=== PATIENT | male | born 1955 | race Caucasian/White ===

== ENCOUNTER 2016-08-28 23:23 | Inpatient (IN) | payer BC, MEDICARE ==
[~2016-08-28] VITALS: Ht 172.7 cm; Wt 90.6 kg
[~2016-08-28 23:23] MED LIST: LEVO.125 PO; MORP60TA20 PO
[2016-08-28] MEDS ORDERED: methylPREDNISolone SOD SUCC 125 MG/2 ML VIAL ONE (23:32)
[2016-08-28 23:40] VITALS: O2SAT 98
[2016-08-28 23:44] VITALS: BP 125/60; PULSE 82; RESP 24; TEMP 97.9; O2SAT 93
[2016-08-28] MEDS: RESP: ALBUTEROL 2.5 MG/IPRATROPIUM 0.5 MG NEB (SCH) INH ×2 (23:45→23:46)
[2016-08-28] MEDS ORDERED: methylPREDNISolone SOD SUCC 125 MG/2 ML VIAL IVP ONE (23:45)
[2016-08-28] MEDS ORDERED: SODIUM CHLORIDE 0.9% FLUSH 5 ML FLUSH IVF PRN (23:45)
[2016-08-28 23:53] LABS: AUTOMATED NEUTROPHIL # 3.5 TH/MM3 (1.8-7.7); BASOPHIL % 0.7 % (0.0-2.0); EOSINOPHIL % 14.2 % (0.0-4.0); HEMATOCRIT 37.7 % (39.0-51.0); HEMO FLAGS DIFF FINAL; LYMPHOCYTE # 1.8 TH/MM3 (1.0-4.8); MEAN CELL VOLUME 86.8 FL (80.0-100.0); MEAN CORPUSCULAR HEMOGLOBIN 29.6 PG (27.0-34.0); MEAN CORPUSCULAR HGB CONC 34.1 % (32.0-36.0); MONO % 6.5 % (0.0-8.0); NEUT % 51.6 % (16.0-70.0); PLATELET COUNT 263 TH/MM3 (150-450); RED BLOOD COUNT 4.35 MIL/MM3 (4.50-5.90); WHITE BLOOD COUNT 6.8 TH/MM3 (4.0-11.0)
[2016-08-28] MEDS ORDERED: MORP60TA24 PO (23:53)
[2016-08-28] MEDS ORDERED: OXYC30TA PO (23:53)
[2016-08-28] MEDS ORDERED: LEVO150T7 PO (23:53)
[2016-08-28 23:56] VITALS: O2SAT 98
[2016-08-29] VITALS (9 sets, daily range): BP systolic 134–158; BP diastolic 80–98; PULSE 66–89; RESP 16–20; TEMP 97.2–98.4; O2SAT 95–98
[2016-08-29 00:05] LABS: PROTHROMBIN TIME - PATIENT 10.5 SEC (9.8-11.6)
--- NOTE | 2016-08-29 00:05 | RADRPT ---
EXAM DATE/TIME: 08/28/2016 23:37 [facility] COMPARISON: CHEST SINGLE AP, December 03, 2014, 8:55. INDICATIONS : Shortness of breath. MEDICAL HISTORY : Carcinoma, thyroid. SURGICAL HISTORY : CABG. Thyroidectomy. ENCOUNTER: Initial ACUITY: 1 day PAIN SCORE: 0/10 LOCATION: Bilateral chest FINDINGS: A single view of the chest demonstrates the lungs to be symmetrically aerated without evidence of mas s, infiltrate or effusion. The cardiomediastinal contours are unremarkable. Osseous structures are intact. CONCLUSION: 1. No focal consolidation or effusion. Postoperative median sternotomy. Tortuous aorta. Chris Martines MD on August 29, 2016 at 0:01 Board Certified Radiologist. This report was verified electronically.
[2016-08-29 00:21] LABS: ANION GAP 7 MEQ/L (5-15); BICARBONATE 31.1 MEQ/L (21.0-32.0); BLOOD UREA NITROGEN 17 MG/DL (7-18); CHLORIDE 102 MEQ/L (98-107); GLOMERULAR FILTRATION RATE 63 ML/MIN (>89); MAGNESIUM 2.3 MG/DL (1.5-2.5); POTASSIUM 4.1 MEQ/L (3.5-5.1); SODIUM (NA) 140 MEQ/L (136-145)
[2016-08-29 00:24] LABS: CREATINE KINASE 329 U/L (39-308)
[2016-08-29 00:36] LABS: CKMB 9.7 NG/ML (0.5-3.6)
[2016-08-29] MEDS ORDERED: LEVOTHYROXINE SODIUM 200 MCG TAB PO ONE (00:45)
--- NOTE | 2016-08-29 00:49 | PD ---
HPI Chief Complaint: Respiratory Distress Time Seen by Provider: 23:30 Travel History International Travel<30 days: No Contact w/Intl Traveler<30days: No Traveled to known affect area: No History of Present Illness HPI 61-year-old male came to the emergency room with history of shortness of breath and wheezing. Patient says it's been going on for past 1 month but it is progressively worsening. He got very short of breath today. When he came to the triage she could barely speak one word per breath. He was brought in emergently. His oxygen saturation was 96% on 6 L of FiO2. He was audibly wheezing. Patient says he was taking his inhalers but it wasn't working. Denied any chest pain. He says he supposed to take medications but he is noncompliant with them. [facility] Past Medical History Narrative Medical List of his past medical, surgical, social and family history was reviewed from the nursing note. Cancer: Yes (THYROID) Diminished Hearing: No Hepatitis: Yes (HEP-C) Hypertension: Yes Musculoskeletal: Yes Thyroid Disease: Yes (THROID WAS REMOVED DUE TO CANCER) Past Surgical History Coronary Artery Bypass Graft: Yes Endocrine Surgery: Yes (THYROIDECTOMY) Thoracic Surgery: Yes (open heart surgery "heart aneurysm") Other Surgery: Yes (THYROIDECTOMY) Social History Alcohol Use: Yes (weekly) Tobacco Use: No Substance Use: No Allergies-Medications (Allergen,Severity, Reaction): Coded Allergies: No Known Allergies (Verified , 08/28/16) Comments No known drug allergies. Reported Meds & Prescriptions Reported Meds & Active Scripts Active Reported Oxycodone (Oxycodone HCl) 30 Mg Tab 30 Mg PO Q6HR Morphine Sulfate CR (Morphine Sulfate) 60 Mg Tab 60 Mg PO Q12 Levothyroxine (Levothyroxine Sodium) 150 Mcg Tab 150 Mcg PO DAILY Narrative Medication List of his medications reviewed from the nursing note. Review of Systems Except as stated in HPI: all other systems reviewed are Neg Physical Exam Narrative GENERAL: Awake, alert, severe respiratory distress, audibly wheezing from a distance SKIN: Warm and dry. HEAD: Atraumatic. Normocephalic. EYES: Pupils equal and round. No scleral icterus. No injection or drainage. ENT: No nasal bleeding or discharge. Mucous membranes pink and moist. NECK: Trachea midline. No JVD. CARDIOVASCULAR: Regular rate and rhythm. No murmur appreciated. RESPIRATORY: Decreased air entry bilaterally expiratory wheeze, accessory muscles used. GASTROINTESTINAL: Abdomen soft, non-tender, nondistended. Hepatic and splenic margins not palpable. MUSCULOSKELETAL: No obvious deformities. No clubbing. No cyanosis. No edema. NEUROLOGICAL: Awake and alert. No obvious cranial nerve deficits. Motor grossly within normal limits. Normal speech. PSYCHIATRIC: Appropriate mood and affect; insight and judgment normal. Data Data Last Documented VS Orders Methylprednisolone So Succ Inj (Solumedr (08/28/16 23:32) Complete Blood Count With Diff (08/28/16 23:31) Basic Metabolic Panel (Bmp) (08/28/16 23:31) B-Type Natriuretic Peptide (08/28/16 23:31) Prothrombin Time / Inr (Pt) (08/28/16 23:31) Magnesium (Mg) (08/28/16 23:31) Ckmb (Isoenzyme) Profile (08/28/16 23:31) Troponin I (08/28/16 23:31) Iv Access Insert/Monitor (08/28/16 23:31) Electrocardiogram (08/28/16 23:31) Ecg Monitoring (08/28/16 23:31) Oximetry (08/28/16 23:31) Oxygen Administration (08/28/16 23:31) Chest, Single Ap (08/28/16 23:31) Sodium Chloride 0.9% Flush (Ns Flush) (08/28/16 23:45) Methylprednisolone So Succ Inj (Solumedr (08/28/16 23:45) Albuterol-Ipratropium Neb (Duoneb Neb) (08/28/16 23:45) Thyroid Stimulating Hormone (08/28/16 23:34) CKMB (08/28/16 23:40) CKMB% (08/28/16 23:40) Levothyroxine (Synthroid) (08/29/16 00:45) D-Dimer (08/29/16 00:49) Ct Pulmonary Angiogram (08/29/16 ) Iohexol 350 Inj (Omnipaque 350 Inj) (08/29/16 02:22) Radiology Film Requests (08/29/16 ) Consult Cardiothoracic Surgery (08/29/16 ) (Hub Use Only)Inp Phy Cons/Ref (08/29/16 ) Admit Order (Ed Use Only) (08/29/16 05:09) Labs Laboratory Tests Test 08/28/16 23:40 White Blood Count 6.8 TH/MM3 Red Blood Count 4.35 MIL/MM3 Hemoglobin 12.9 GM/DL Hematocrit 37.7 % Mean Corpuscular Volume 86.8 FL Mean Corpuscular Hemoglobin 29.6 PG Mean Corpuscular Hemoglobin 34.1 % Concent Red Cell Distribution Width 13.0 % Platelet Count 263 TH/MM3 Mean Platelet Volume 7.5 FL Neutrophils (%) (Auto) 51.6 % Lymphocytes (%) (Auto) 27.0 % Monocytes (%) (Auto) 6.5 % Eosinophils (%) (Auto) 14.2 % Basophils (%) (Auto) 0.7 % Neutrophils # (Auto) 3.5 TH/MM3 Lymphocytes # (Auto) 1.8 TH/MM3 Monocytes # (Auto) 0.4 TH/MM3 Eosinophils # (Auto) 1.0 TH/MM3 Basophils # (Auto) 0.0 TH/MM3 CBC Comment DIFF FINAL Differential Comment Prothrombin Time 10.5 SEC Prothromb Time International 1.0 RATIO Ratio D-Dimer Quantitative (PE/DVT) 1.39 MG/L FEU Sodium Level 140 MEQ/L Potassium Level 4.1 MEQ/L Chloride Level 102 MEQ/L Carbon Dioxide Level 31.1 MEQ/L Anion Gap 7 MEQ/L Blood Urea Nitrogen 17 MG/DL Creatinine 1.17 MG/DL Estimat Glomerular Filtration 63 ML/MIN Rate Random Glucose 91 MG/DL Calcium Level 8.6 MG/DL Magnesium Level 2.3 MG/DL Total Creatine Kinase 329 U/L Creatine Kinase MB 9.7 NG/ML Creatine Kinase MB % 2.9 % Troponin I LESS THAN 0.02 NG/ML B-Type Natriuretic Peptide 133 PG/ML Thyroid Stimulating Hormone 69.900 uIU/ML 3rd Gen [facility] Medical Decision Making Medical Screen Exam Complete: Yes Emergency Medical Condition: Yes Medical Record Reviewed: Yes Interpretation(s) Twelve-lead EKG was reviewed by me. Normal sinus rhythm, normal axis, right bundle branch block, nonspecific ST-T wave changes. Heart rate of 85 bpm. Differential Diagnosis COPD exacerbation, PE, pneumonia, congestive heart failure Narrative Course 12:48 AM the test results are back. Given the fact that he told me his thyroid was surgically removed and he is medically noncompliant I ordered a TSH in addition which is extremely high. I've given him 200 g of Synthroid by mouth. Patient initially received 3 duo nebs and IV Solu-Medrol. I just reassessed him and he is still wheezing although the intensity has lessened. I'll order 2 more albuterol nebulizers. Patient had history of PE in 1994. There is a possibility of PE. I will add a d-dimer to the blood work since he has no other risk factors for developing PE including long distance travel or recent surgery or procedures. 1:42 AM d-dimer is back in its elevated. I ordered a pulmonary angiogram. Awaiting for the CT to be done and resulted. 3:[address] pulmonary angiogram was resulted as aortic dissection proximal from subclavian artery all the way down to the renal arteries bifurcation. Spoke with the thoracic surgeon environmental safety specialist Dr. Campso and he wanted the patient to be transferred to [facility] in [place] since he has had cardiac thoracic surgery done there in the past. Attempting to call the transfer center at [facility] in [place]. Patient's latest blood pressure is 134/80 and heart rate of 84. He seems to be comfortable and resting currently. 4:48 AM I had discussed the case with Dr. Tabares who is the cardiothoracic surgeon from [facility] in [place]. He said that this patient has a known type I aortic dissection. Given the fact that he has no chest pain and no symptoms of dissection there is no surgical emergency for this. He should be treated medically as a COPD exacerbation. If the patient had come to their institution no surgery would have been done and patient will be treated medically as well. Hence the need for transfer was not necessary. He was going to speak with the thoracic surgeon here Dr. Campos. I will consult Dr. Campos here for the same. Awaiting for the [facility] hospitalist to call back for admission. Patient continues to be stable and chest pain-free. Critical Care Narrative Aggregate critical care time was 45 minutes. Time to perform other separately billable procedures was not included in the critical care time. My time did not include minutes spent treating any other patients simultaneously or on activities that did not directly contribute to the patient's treatment. The services I provided to this patient were to treat and/or prevent clinically significant deterioration that could result in: Respiratory distress, COPD exacerbation I provided critical care services requiring my management, as noted below: Chart data review, documentation time, medication orders and management, vital sign assessments/reviewing monitor data, ordering and reviewing lab tests, ordering and interpreting/reviewing x-rays and diagnostic studies, care of the patient and discussion of the patient with the admitting physicians. Procedures EKG Prior to Arrival: No Physician Communication Physician Communication Dr. Campos, Dr. Tabares, Dr. Zheng Diagnosis Primary Impression: Acute exacerbation of chronic obstructive pulmonary disease (COPD) Additional Impressions: Chronic thoracic aortic dissection Respiratory distress Hypothyroidism Qualified Code: E03.9 - Hypothyroidism, unspecified type Admitting Information Admitting Physician Requests: Admit Scripts Amlodipine (Norvasc)5 Mg Tab5 Mg PO DAILY #30 TAB Ref 1 Prov:Sharon AlejandroP 09/01/16 Albuterol 18 GM Inh (Ventolin Hfa 18 GM Inh)90 Mcg/Act Aer2 Puff INH Q4H PRN ( SHORTNESS OF BREATH) #1 INHALER Ref 0 Prov:Sharon Alejandro 09/01/16 Prednisone 20 Mg Tab20 Mg PO BID #10 TAB 20 mg orally twice a day x 2 days, then 20 mg orally x 4 days, then 10 mg orally x 4 days, then discontinue Prov:Sharon Alejandro 09/01/16 Fluticasone Nasal [place] 50 Mcg/Act Naspr2 [place] EACH NARE DAILY #1 BOTTLE Ref 0 Prov:Sharon Alejandro 09/01/16 Cetirizine 10 Mg Tab10 Mg PO DAILY #30 TAB Ref 1 Prov:Sharon AlejandroP 09/01/16 Cefuroxime (Ceftin)500 Mg Bcm173 Mg PO Q12HR #10 TAB Prov:Sharon Alejandro 09/01/16 Benzonatate (Tessalon Perles)100 Mg Xtd028 Mg PO TID PRN (cough) #21 CAP Ref 0 Prov:Sharon Alejandro 09/01/16 Disposition: 70 TRANSFER TO OTHER FACILITY Alfred Lemon MD Aug 29, 2016 00:49
[2016-08-29] MEDS ORDERED: IOHEXOL 350 MG/ML 10 ML VIAL (for RAD DIAG) IV ONE (02:22)
--- NOTE | 2016-08-29 02:52 | RADRPT ---
EXAM DATE/TIME: 08/29/2016 02:14 [facility] COMPARISON: No previous studies available for comparison. INDICATIONS : Shortness of breath; rule out pulmonary embolus. IV CONTRAST: 65 cc Omnipaque 350 (iohexol) IV RADIATION DOSE: 23.38 CTDIvol (mGy) MEDICAL HISTORY : Hepatitis C. SURGICAL HISTORY : CABG Thyroidectomy. ENCOUNTER: Initial ACUITY: 1 day PAIN SCALE: 5/10 LOCATION: chest TECHNIQUE: Volumetric scanning of the chest was performed using a pulmonary embolism protocol MIP images were re constructed. Using automated exposure control and adjustment of the mA and/or kV according to patien t size, radiation dose was kept as low as reasonably achievable to obtain optimal diagnostic quality images. FINDINGS: The examination is negative for pulmonary embolism. However, there is an aortic dissection. The disse ction begins in the proximal transverse aorta and extends slightly into the brachiocephalic artery an d left subclavian artery. The dissection extends distally into the descending thoracic aorta and ends just above the renal arteries. No evidence for rupture. No pleural effusion. Postoperative median st ernotomy and aortic valve replacement. There is linear atelectasis and scarring at the lung bases. No pleural or pericardial effusion. CONCLUSION: 1. Aortic dissection beginning in transverse aorta and extending distally to just above the renal art eries. Proximally the dissection extends slightly into the proximal subclavian artery and brachioceph alic artery. No extension into the common carotid arteries is identified. 2. Negative for pulmonary embolism. 3. Postoperative median sternotomy and aortic valve replacement. Chris Martines MD on August 29, 2016 at 2:45 Board Certified Radiologist. This report was verified electronically.
[2016-08-29] MEDS ORDERED: ONDANSETRON HCL 4 MG/2 ML VIAL IVP PRN (05:15)
[2016-08-29] MEDS ORDERED: RESP: ALBUTEROL 2.5 MG/IPRATROPIUM 0.5 MG NEB (PRN) NEB (05:15)
[2016-08-29] MEDS ORDERED: NALOXONE HCL 0.4 MG/ML AMP IV PRN (05:15)
[2016-08-29] MEDS ORDERED: ACETAMINOPHEN 325 MG TAB PO PRN (05:15)
[2016-08-29] MEDS ORDERED: SODIUM CHLORIDE 0.9% FLUSH 5 ML FLUSH FLUSH PRN (05:15)
[2016-08-29] MEDS: LEVOTHYROXINE SODIUM 200 MCG TAB PO SCH (06:00)
[2016-08-29] MEDS ORDERED: LEVOTHYROXINE SODIUM 150 MCG TAB PO SCH ×2 (06:00)
[2016-08-29] MEDS: methylPREDNISolone SOD SUCC 40 MG/1 ML VIAL IV PUSH SCH ×4 (06:19→23:34)
[2016-08-29] MEDS: HEPARIN SODIUM - SQ 10,000 UNITS/ML VIAL SQ SCH ×2 (06:19→17:53)
[2016-08-29] MEDS: cefTRIAXone INJ 1,000 MG in SODIUM CHLORIDE 0.9% INJ 100 ML IV SCH (06:19)
[2016-08-29] MEDS ORDERED: cloNIDine HCL 0.1 MG TAB PO PRN (09:00)
[2016-08-29] MEDS ORDERED: diphenhydrAMINE HCL 25 MG CAP PO PRN (09:00)
[2016-08-29] MEDS: SODIUM CHLORIDE 0.9% FLUSH 5 ML FLUSH FLUSH SCH ×2 (09:00→20:35)
--- NOTE | 2016-08-29 09:01 | HHI.HP ---
HPI Service [facility] Primary Care Physician Rickey Alaniz MD Admission Diagnosis COPD exacerbation, hypothyroidism, chronic aortic dissection Diagnoses: Chief Complaint: SOB, wheezing Travel History International Travel<30 Days: No Contact w/Intl Traveler <30 Da: No Traveled to Known Affected Are: No History of Present Illness This a 61-year-old male with history of thyroid cancer post resection, hypertension, hyperlipidemia, aneurysm post open heart for valve replacement and aneurysm repair. Patient presented to the emergency room complaining of shortness of breath and wheezing for the last month. Indicates he went to see his primary care physician and was given nebulizer and inhalers without any relief. He's had increased shortness of breath with activity, has not been able to sleep very well at night. Has had increased cough with sputum production not sure what color. No chest pain. Denies any fever, no chills. Denies any known history of COPD or emphysema. Indicates he smoked very little when he was a teenager. Does smoke occasional marijuana. Indicates he's had increased nasal drainage, has seasonal allergies. Has noted a rash around his neck that is itchy and scaly, this has been ongoing for the last month as well. Indicates that he has termites in his house with "droppings" and that may be contributing to his symptoms. Patient indicates that he was recently put on medications for blood pressure and also cholesterol but hasn't taken any of them. He does take medications for hypothyroid however he forgets to take them. He has a history of chronic pain and is on oxycodone and morphine. Patient was evaluated in the emergency room, he was afebrile, temperature 97.9, heart rate 82, RR 24, sats 93% on 3 L. Blood pressure 125/60. CBC was unremarkable. BMP was unremarkable other than total creatinine kinase was 329. Troponin was negative. B natruretic peptide 133. TSH was 69.9. Troponin was negative. Chest x-ray did not reveal any significant findings other than torturous aorta. D-dimer was elevated at 1.39 and therefore a CTA was completed. CTA was notable for aortic dissection beginning and transverse aorta and descending distally to just above the renal artery. Proximally, the dissection extends slightly into the proximal subclavian artery and brachiocephalic artery. No extension into the common carotid arteries is identified. Negative for pulmonary embolus. Postoperative median sternotomy and aortic valve replacement. Because of CTA findings,Dr. Campos was contacted by the emergency room physician and requested transfer to [facility] where patient had cardiothoracic surgery in the past. Emergency room physician was able to contact Dr. Tabares who is the cardiothoracic surgeon from [facility] in [place]. He said that this patient has a known type I aortic dissection. Given the fact that he has no chest pain and no symptoms of dissection there is no surgical emergency for this. He should be treated medically as a COPD exacerbation. If the patient had come to their institution no surgery would have been done and patient will be treated medically as well. Hence the need for transfer was not necessary. He was going to speak with the thoracic surgeon here Dr. Campos. Patient was medically treated in the emergency room, he was given 200 g of Synthroid. He was given 3 DuoNeb treatments and IV Solu-Medrol. He was noted wheezing intensely prior to treatments and this improved after treatments. Patient endorses that he has not taken blood pressure medications that was prescribed recently by his physician. Patient is not evaluated, indicates he is feeling improved. He is noted with the rash around his neck, it is itchy. He denies any recent medication changes, no recent outside travel. He is wheezing less but still feels short of breath at times. Does endorse leg swelling to the right leg. Is status post left below-knee amputation. Patient is admitted for further evaluation and treatment. Review of Systems Constitutional: DENIES: Diaphoretic episodes, Fatigue, Fever, Weight gain, Weight loss, Chills, Dizziness, Change in appetite, Night Sweats Endocrine: DENIES: Heat/cold intolerance, Polydipsia, Polyuria, Polyphagia Eyes: DENIES: Blurred vision, Diplopia, Eye inflammation, Eye pain, Vision loss , Photosensitivity, Double Vision Ears, nose, mouth, throat: COMPLAINS OF: Nasal discharge, Running Nose, DENIES : Tinnitus, Hearing loss, Vertigo, Oral lesions, Throat pain, Hoarseness, Ear Pain, Epistaxis, Sinus Pain, Toothache, Odynophagia Respiratory: COMPLAINS OF: Wheezing, Sputum production, Shortness of breath Cardiovascular: COMPLAINS OF: Lower Extremity Edema, DENIES: Chest pain, Palpitations, Syncope, Dyspnea on Exertion, PND, Orthopnea, Claudication Gastrointestinal: DENIES: Abdominal pain, Black stools, Bloody stools, Constipation, Diarrhea, Nausea, Vomiting, Difficulty Swallowing, Anorexia Genitourinary: DENIES: Sexual dysfunction, Urinary frequency, Urinary incontinence, Urgency, Hematuria, Dysuria, Nocturia, Penile Discharge, Testicular Pain, Testicular Swelling Musculoskeletal: COMPLAINS OF: Back pain, DENIES: Joint pain, Muscle aches, Stiffness, Joint Swelling, Neck pain Integumentary: DENIES: Abnormal pigmentation, Nail changes, Pruritus, Rash Hematologic/lymphatic: DENIES: Bruising, Lymphadenopathy Immunologic/allergic: COMPLAINS OF: Eczema, DENIES: Urticaria Neurologic: DENIES: Abnormal gait, Headache, Localized weakness, Paresthesias, Seizures, Speech Problems, Tremor, Poor Balance Psychiatric: DENIES: Anxiety, Confusion, Mood changes, Depression, Hallucinations, Agitation, Suicidal Ideation, Homicidal Ideation, Delusions Past Family Social History Past Medical History Hypertension Hyperlipidemia Left leg infections that led to left below-knee amputation Valvular disease Known type I aortic dissection Thyroid cancer, partial thyroidectomy and radiation iodine Hepatitis C Inguinal an intra-abdominal lymphadenopathy Clubfeet Left lower extremity DVT in 2013 Past Surgical History CABG 2 and aortic valve replacement in 2013 states he had aneurysm repair Left below-knee amputation 2014 Liver bx Tendon release surgery Reported Medications Reported Meds & Active Scripts Active Reported Oxycodone (Oxycodone HCl) 30 Mg Tab 30 Mg PO Q6HR Morphine Sulfate CR (Morphine Sulfate) 60 Mg Tab 60 Mg PO Q12 Levothyroxine (Levothyroxine Sodium) 150 Mcg Tab 150 Mcg PO DAILY Allergies: Coded Allergies: No Known Allergies (Verified , 08/28/16) Active Ordered Medications Inpatient Medications Acetaminophen (Tylenol) 650 mg Q4H PRN PO TEMP > 100.4; Start 08/29/16 at 05:15 Albuterol/ Ipratropium (Duoneb Neb) 1 ampule Q6HR WHILE AWAKE NEB NEB ; Start 08/29/16 at 08:00 Albuterol/ Ipratropium 1 ampule 1 ampule Q8HR NEB PRN NEB shortness of breath; Start 08/29/16 at 05:15 Azithromycin/ Sodium Chloride (Zithromax Inj/ NS 250 ml Inj) 250 ml @ 250 mls/ hr Q24H IV ; Start 08/29/16 at 07:00 Ceftriaxone Sodium 1000 mg/ Sodium Chloride 100 ml @ 200 mls/hr Q24H IV Last administered on 08/29/16 06:19; Start 08/29/16 at 06:00 Heparin Sodium (Porcine) (Heparin Inj) 5,000 units Q12H SQ Last administered on 08/29/16 06:19; Start 08/29/16 at 06:00 IV Flush (NS Flush) 2 ml BID FLUSH ; Start 08/29/16 at 09:00 Levothyroxine Sodium (Synthroid) 200 mcg DAILY@0600 PO ; Start 08/29/16 at 06:00 Methylprednisolone Sodium Succinate (SoluMEDROL INJ) 40 mg Q6HR IV PUSH Last administered on 08/29/16 06:19; Start 08/29/16 at 06:00 Morphine Sulfate (Oramorph Sr) 60 mg Q12H PO ; Start 08/29/16 at 06:00 Naloxone HCl (Narcan Inj) 0.4 mg UNSCH PRN IV SEE LABEL COMMENTS; Start at 05:15 Ondansetron HCl (Zofran Inj) 4 mg Q6H PRN IVP TEMP > 100.4; Start 08/29/16 at 05:15 Family History Mother , doesn't know med hx Father, , lung cancer Brother , AIDS Social History Lives alone, with cat. Has a child who's grown. No smoking, occ. beer, smokes occ. marijuana. Lives in a house that has termite infestation. Physical Exam Vital Signs Vital Signs Date Time Temp Pulse Resp B/P Pulse Ox O2 Delivery O2 Flow Rate FiO2 08/29/16 06:34 97.2 77 20 158/98 98 08/29/16 03:44 Room Air 95 08/29/16 03:38 84 18 134/80 95 Nasal Cannula 08/28/16 23:56 98 Nasal Cannula 3 08/28/16 23:46 97 Nasal Cannula 3 08/28/16 23:46 97 Nasal Cannula 3 08/28/16 23:44 97.9 82 24 125/60 93 08/28/16 23:40 98 Nasal Cannula 3.00 Physical Exam GENERAL: This is a well-nourished, well-developed patient, in no apparent distress. SKIN: raised erythematous plaques around neck, scaly skin. HEAD: Atraumatic. Normocephalic. No temporal or scalp tenderness. EYES: Pupils equal round and reactive. Extraocular motions intact. No scleral icterus. No injection or drainage. ENT: Nose without bleeding, purulent drainage or septal hematoma. Throat without erythema, tonsillar hypertrophy or exudate. Uvula midline. Airway patent. NECK: Trachea midline. No JVD or lymphadenopathy. Supple, nontender, no meningeal signs. CARDIOVASCULAR: Regular rate and rhythm without murmurs, gallops, or rubs. RESPIRATORY: Exp. wheezes throughout GASTROINTESTINAL: Abdomen soft, non-tender, nondistended. No hepato-splenomegaly , or palpable masses. No guarding. MUSCULOSKELETAL: Left BKA. Right leg with + 1 pitting edema, right pedal pulse 1 +. NEUROLOGICAL: Awake, oriented x 3. No focal deficits. Laboratory Laboratory Tests Test 08/28/16 23:40 White Blood Count 6.8 Red Blood Count 4.35 Hemoglobin 12.9 Hematocrit 37.7 Mean Corpuscular Volume 86.8 Mean Corpuscular Hemoglobin 29.6 Mean Corpuscular Hemoglobin 34.1 Concent Red Cell Distribution Width 13.0 Platelet Count 263 Mean Platelet Volume 7.5 Neutrophils (%) (Auto) 51.6 Lymphocytes (%) (Auto) 27.0 Monocytes (%) (Auto) 6.5 Eosinophils (%) (Auto) 14.2 Basophils (%) (Auto) 0.7 Neutrophils # (Auto) 3.5 Lymphocytes # (Auto) 1.8 Monocytes # (Auto) 0.4 Eosinophils # (Auto) 1.0 Basophils # (Auto) 0.0 CBC Comment DIFF FINAL Differential Comment Prothrombin Time 10.5 Prothromb Time International 1.0 Ratio D-Dimer Quantitative (PE/DVT) 1.39 Sodium Level 140 Potassium Level 4.1 Chloride Level 102 Carbon Dioxide Level 31.1 Anion Gap 7 Blood Urea Nitrogen 17 Creatinine 1.17 Estimat Glomerular Filtration 63 Rate Random Glucose 91 Calcium Level 8.6 Magnesium Level 2.3 Total Creatine Kinase 329 Creatine Kinase MB 9.7 Creatine Kinase MB % 2.9 Troponin I LESS THAN 0.02 B-Type Natriuretic Peptide 133 Thyroid Stimulating Hormone 69.900 3rd Gen Result Diagram: 08/28/16 2340 08/28/16 [address] Angiography 08/29/16 0000 Signed Impressions: Service Date/Time: Monday, August 29, 2016 02:14 - CONCLUSION: 1. Aortic dissection beginning in transverse aorta and extending distally to just above the renal arteries. Proximally the dissection extends slightly into the proximal subclavian artery and brachiocephalic artery. No extension into the common carotid arteries is identified. 2. Negative for pulmonary embolism. 3. Postoperative median sternotomy and aortic valve replacement. Chris Martines MD Chest X-Ray 08/28/16 9941 Signed Impressions: Service Date/Time: Sunday, August 28, 2016 23:37 - CONCLUSION: 1. No focal consolidation or effusion. Postoperative median sternotomy. Tortuous aorta. Chris Martines MD Assessment and Plan Problem List: (1) Acute exacerbation of chronic obstructive pulmonary disease (COPD) (2) Respiratory distress (3) Chronic thoracic aortic dissection (4) Hypothyroidism (5) Allergic rhinitis (6) Allergic dermatitis (7) Non compliance w medication regimen (8) HTN (hypertension) (9) Hx of thyroid cancer (10) Hx of hepatitis C (11) History of left below knee amputation (12) Chronic pain Assessment and Plan Admit to Dr. Bowman 61-year-old male with history of one month of shortness of breath and wheezing that has failed outpatient therapy with nebulizer and inhaler. Complaints of nasal drainage as well as rash also x 1 month, possible allergic rhinitis. Possible COPD exacerbation vs asthma -continue with supplemental oxygen -Empiric antibiotics -Continue with Solu-Medrol 30 mg IV every 6 -Flonase 2 puffs intranasally daily -Zyrtec 10 mg by mouth daily -Benadryl when necessary -Consult pulmonology for evaluation History of thyroid cancer, now hypothyroid and noncompliant with taking medication. TSH level 69.9 -Continue levothyroxine 20 g by mouth daily We'll need repeat TSH in 6 weeks -Discussed with patient at length the need to remain compliant with taking medication Chronic thoracic aortic dissection, known type I aortic dissection -Cardiothoracic surgery consultation, Dr. Campos has been consulted. Control blood pressure, patient doesn't know what medication he takes at home, we will start Norvasc 5 mg by mouth daily -We will add clonidine when necessary for elevated blood pressure Right leg swelling, r/o DVT, hx DVT left leg -will check US to r/o DVT Chronic back pain Continue with home medications Hyperlipidemia Patient doesn't take any medications at home Needs to follow up as outpatient with primary care physician Home medications reviewed, initiated as indicated Heparin 5000 units subcutaneous every 12 for DVT prophylaxis Plan of care has been discussed with the patient, attending and registered nurse. Further management of the patient will be dependent on the hospital course This patient was seen by myself and Dr. Bowman, this H&P is written on his behalf Physician Certification 2 Midnight Certification Type: Admission for Inpatient Services Order for Inpatient Services The services are ordered in accordance with Medicare regulations or non- Medicare payer requirements, as applicable. In the case of services not specified as inpatient-only, they are appropriately provided as inpatient services in accordance with the 2-midnight benchmark. Estimated LOS (days): 2 2 days is the estimated time the patient will need to remain in the hospital, assuming treatment plan goals are met and no additional complications. Post-Hospital Plan: Home Health Problem Qualifiers (1) Hypothyroidism: Qualified Code: E03.9 - Hypothyroidism, unspecified type (2) Allergic rhinitis: (3) HTN (hypertension): Qualified Code: I10 - Essential hypertension (4) Chronic pain: Qualified Code: G89.4 - Chronic pain syndrome Sharon Alejandro Aug 29, 2016 09:01
--- NOTE | 2016-08-29 09:29 | EKG ---
Date Performed: 08/28/2016 Time Performed: 23:37:25 PTAGE: 61 years EKG: Baseline artifact is present. Sinus rhythm POSSIBLE LEFT ATRIAL ENLARGEMENT RIGHT BUNDLE BRANCH BLOCK ABNORMAL ECG NO PREVIOUS TRACING DOCTOR: Dru Torres Interpretating Date/Time 08/29/2016 09:28:51
[2016-08-29] MEDS: MORPHINE SULFATE 60 MG CONTROLLED RELEASE TAB PO SCH ×2 (09:49→17:52)
[2016-08-29] MEDS: AZITHROMYCIN INJ 500 MG in SODIUM CHLOR 0.9% 250 ML INJ 250 ML IV SCH (09:50)
--- NOTE | 2016-08-29 10:01 | RADRPT ---
EXAM DATE/TIME: 08/29/2016 09:31 [facility] COMPARISON: No previous studies available for comparison. INDICATIONS : Right leg swelling. MEDICAL HISTORY : Hypertension. Carcinoma, thyroid. Hepatitis C. SURGICAL HISTORY : CABG Thyroidectomy. Left leg BKA. ENCOUNTER: Initial ACUITY: 1 day PAIN SCORE: 4/10 LOCATION: Right leg. TECHNIQUE: Venous ultrasound of the leg was performed from the inguinal ligament to the proximal calf. Real-rosa maria e, color Doppler and spectral tracing, compression and augmentation techniques were used. FINDINGS: There is normal compressibility of the deep venous system from the inguinal region to the proximal ca lf. No echogenic clot is seen in the lumen of the common femoral, femoral, popliteal, and posterior tibial veins. There is a normal response of the venous system to proximal and distal augmentation an d respiration. CONCLUSION: No DVT. Jos Robbins MD on August 29, 2016 at 9:59 Board Certified Radiologist. This report was verified electronically.
[2016-08-29] MEDS: CETIRIZINE HCL 10 MG TAB PO SCH (10:03)
[2016-08-29] MEDS: amLODIPine BESYLATE 5 MG TAB PO SCH (10:03)
[2016-08-29] MEDS: FLUTICASONE PROPIONATE 50 MCG/ACT 16 GM NASAL SPRAY EACH NARE SCH (10:29)
--- NOTE | 2016-08-29 12:29 | MB ---
cc: FRANTZ DOE MD,MICHAEL Hernandez MD DATE OF CONSULTATION: 08/29/2016. REASON FOR CONSULTATION: Aortic dissection. REFERRING PHYSICIAN: Dr. Lemon in the emergency department. HISTORY OF PRESENT ILLNESS: Mr. Meléndez is a 61-year gentleman with a very complex history of chronic dissection status post repair in 2012 at [facility] in [place] at which time he underwent aortic root replacement with a surgeon modified pericardial valve conduit and associated replacement of the ascending and total arch with fenestration of the transverse arch, pericardial patch reconstruction of the right main and proximal pulmonary arteries and coronary artery bypass grafting to the right coronary artery. Since that time, he has done relatively well and now returns to the ER with complaints of progressive shortness of breath. Further workup in the emergency department including a chest CT revealed aortic dissection involving the distal arch and the descending thoracic aorta and I am now being consulted for this reason. At the present time, he is pain-free and hemodynamically stable with no evidence of further progression of his dissection. Of note, this is a chronic dissection that has been noted in the past in the descending thoracic aorta and as stated above has been repaired extensively in the ascending and proximal portion of the arch. PAST MEDICAL HISTORY: Past medical history significant for: 1. Chronic aortic dissection type 1 as described above. 2. Prior history of severe aortic insufficiency status post replacement and valve replacement. 3. Hepatitis C. 4. Hypertension. 5. Hyperthyroidism. 6. History of thyroid cancer. PAST SURGICAL HISTORY: 1. Past surgical history is extensive and remarkable for cardiac history as described above with replacement for chronic dissection, coronary artery bypass grafting as well as ascending arch replacement. 2. Thyroid cancer resection with thyroidectomy. ALLERGIES: THE PATIENT REPORTS NO KNOWN DRUG ALLERGIES. ADMISSION MEDICATIONS: Listed in the chart. SOCIAL HISTORY: Social history is significant for alcohol use. Denies any illicit drug use or tobacco use although he has a prior history of polysubstance use. REVIEW OF SYSTEMS: Review of systems is as above, all other parameters are negative. PHYSICAL EXAMINATION: HEIGHT: He is 172 cm tall. WEIGHT: He weighs 80 kilos. VITAL SIGNS: Blood pressure is 135/91 with a heart rate of 66 which is regular, respiratory rate is 18 and he is afebrile. HEAD, EYES, EARS, NOSE, THROAT: Normocephalic and atraumatic. Pupils round and reactive. Extraocular muscles intact. NECK: No cervical lymphadenopathy, carotid bruits or jugular venous distention. CARDIOVASCULAR: Regular rate and rhythm. Normal S1 and S2 without murmurs, rubs or gallops. Well-healed median sternotomy incision. LUNGS: Bilateral end expiratory wheezing otherwise clear to auscultation with good air exchange. ABDOMEN: The abdomen is soft, nontender and nondistended. Normoactive bowel sounds. No hepatosplenomegaly. EXTREMITIES: Bilateral lower extremity pulses are intact without cyanosis, clubbing or edema. No venous varicosities. NEUROLOGIC: Neurologically intact with no focal deficits. IMPRESSION: 1. Chronic descending aortic dissection with complex arch and ascending aortic dissection repair as noted above. 2. Hepatitis C. 3. Hypertension. 4. Thyroid cancer. 5. COPD. PLAN: At this point, no further intervention needs to be undertaken regarding the CT findings of the descending and distal arch dissection. As described above, he has undergone a very extensive repair of his chronic ascending and arch dissection. It appears that his presenting symptoms are primary exacerbation of his COPD and not cardiac-related. At this point, will sign off. Please call if we can be of any other additional assistance. Thank you for allowing me to participate in the care of this patient. Michael RUBIO /11:29 AM /12:12 PM AILEEN
[2016-08-29] MEDS: RESP: ALBUTEROL 2.5 MG/IPRATROPIUM 0.5 MG NEB (SCH) NEB ×2 (13:56→21:31)
--- NOTE | 2016-08-29 14:53 | HHI.PR ---
Objective Objective Results - Vital Signs Date Time Temp Pulse Resp B/P Pulse Ox O2 Delivery O2 Flow Rate FiO2 08/29/16 13:58 98 Nasal Cannula 2.00 08/29/16 12:00 98.2 83 16 141/89 96 08/29/16 10:49 18 08/29/16 08:00 97.7 66 16 135/91 97 08/29/16 06:34 97.2 77 20 158/98 98 08/29/16 03:44 Room Air 95 08/29/16 03:38 84 18 134/80 95 Nasal Cannula 08/28/16 23:56 98 Nasal Cannula 3 08/28/16 23:46 97 Nasal Cannula 3 08/28/16 23:46 97 Nasal Cannula 3 08/28/16 23:44 97.9 82 24 125/60 93 08/28/16 23:40 98 Nasal Cannula 3.00 I/O 08/28/16 08/28/16 08/28/16 08/29/16 08/29/16 08/29/16 07:00 15:00 23:00 07:00 15:00 23:00 Intake Total 600 ml Output Total 750 ml Balance -150 ml Intake Oral 600 ml Output Urine Total 750 ml Result Diagram: 08/28/16 2340 08/28/16 [address] Angiography 08/29/16 0000 Signed Impressions: Service Date/Time: Monday, August 29, 2016 02:14 - CONCLUSION: 1. Aortic dissection beginning in transverse aorta and extending distally to just above the renal arteries. Proximally the dissection extends slightly into the proximal subclavian artery and brachiocephalic artery. No extension into the common carotid arteries is identified. 2. Negative for pulmonary embolism. 3. Postoperative median sternotomy and aortic valve replacement. Chris Martines MD Chest X-Ray 08/28/16 2331 Signed Impressions: Service Date/Time: Sunday, August 28, 2016 23:37 - CONCLUSION: 1. No focal consolidation or effusion. Postoperative median sternotomy. Tortuous aorta. Chris Martines MD Other Results Laboratory Tests Test 08/28/16 08/29/16 23:40 10:20 White Blood Count 6.8 Red Blood Count 4.35 Hemoglobin 12.9 Hematocrit 37.7 Mean Corpuscular Volume 86.8 Mean Corpuscular Hemoglobin 29.6 Mean Corpuscular Hemoglobin 34.1 Concent Red Cell Distribution Width 13.0 Platelet Count 263 Mean Platelet Volume 7.5 Neutrophils (%) (Auto) 51.6 Lymphocytes (%) (Auto) 27.0 Monocytes (%) (Auto) 6.5 Eosinophils (%) (Auto) 14.2 Basophils (%) (Auto) 0.7 Neutrophils # (Auto) 3.5 Lymphocytes # (Auto) 1.8 Monocytes # (Auto) 0.4 Eosinophils # (Auto) 1.0 Basophils # (Auto) 0.0 CBC Comment DIFF FINAL Differential Comment Prothrombin Time 10.5 Prothromb Time International 1.0 Ratio D-Dimer Quantitative (PE/DVT) 1.39 Sodium Level 140 Potassium Level 4.1 Chloride Level 102 Carbon Dioxide Level 31.1 Anion Gap 7 Blood Urea Nitrogen 17 Creatinine 1.17 Estimat Glomerular Filtration 63 Rate Random Glucose 91 Calcium Level 8.6 Magnesium Level 2.3 Total Creatine Kinase 329 Creatine Kinase MB 9.7 Creatine Kinase MB % 2.9 Troponin I LESS THAN 0.02 LESS THAN 0.02 B-Type Natriuretic Peptide 133 Thyroid Stimulating Hormone 69.900 3rd Gen Physical Exam Physical Exam pt is seen & examined dw PT d/w Sharon see H&P see Orders will f/u Evelyn Bowman MD Aug 29, 2016 14:53
--- NOTE | 2016-08-29 17:41 | MB ---
cc: KALI HESTER MD DATE OF CONSULTATION 08/29/[address] Bowman REASON FOR CONSULTATION Evaluation of chronic obstructive pulmonary disease exacerbation HISTORY OF PRESENT ILLNESS Mr. Meléndez is a pleasant 61-year-old male with history of COPD, has a history of thyroid cancer status post resection. Then he says he had lymph node enlargement which also had a lymph node surgery later on. He had a history of aortic aneurysm problem and at [facility] he had complex surgical procedure with repair of the thoracic aortic aneurysm with a replacement of pericardial valve, aortic valve replacement and coronary artery bypass graft. 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 He came to the hospital with one month history of worsening of his shortness of breath. He has wheezing. Did not have any fever or chills or any night sweats. On evaluation in the hospital he had a CTA of the chest done which shows aortic dissection and thickening in the transverse aorta extending to the distal just above the renal arteries. Postoperative median sternotomy. His WBC count is 6.8, hemoglobin 12.9, hematocrit 37.7, MCV 86, platelet count 263. Sodium 140, potassium 4.1, chloride 102, CO2 31, BUN 17, creatinine 1.17. PAST MEDICAL HISTORY 1. History of coronary artery disease status post coronary artery bypass graft, aortic valve replacement 2. Status post repair of the thoracic aortic aneurysm. 3. Chronic descending thoracic aneurysm resection. 4. Chronic obstructive pulmonary disease 5. Left BKA. MEDICATIONS 1. Cetirizine 10 mg 2. Benadryl 25 mg q. 6-hour 3. Flonase nasal spray 4. Amlodipine 5 mg a day, 5. Clonidine p.r.n. 6. Albuterol/Atrovent nebulizer treatment. 7. Zithromax 500 mg a day 8. Solu-Medrol 40 mg q. 6-hour. 9. Rocephin 1 gram a day. 10. Morphine sulfate 60 mg q.12 h. ALLERGIES NO KNOWN DRUG ALLERGIES. SOCIAL HISTORY He is . His lives in [place]. He has one son who lives in [place]. He has history of smoking a long time ago. He drinks beer and uses marijuana off and on. He used to work for a [employer]. REVIEW OF SYSTEMS He does not walk much, lives by himself, no seizure, stroke or epilepsy. No DVT or pulmonary embolism. PHYSICAL EXAMINATION GENERAL: An elderly male mildly short of breath not in acute distress. VITAL SIGNS: Blood pressure 141/89, heart rate 80, respirations 16, temperature 98. HEENT: Pupils are equal and react to light. Nasal mucosa normal. NECK: Supple. JVP not raised. CHEST: She has mild rhonchi. CARDIOVASCULAR: S1, S2 normal. Has systolic murmur. ABDOMEN: Soft, nondistended. Bowel sounds are present EXTREMITIES: Left BKA. IMPRESSION: 1. COPD exacerbation is improving 2. Chronic dissection of descending thoracic aorta. 3. Status post repair of the thoracic aneurysm 4. Status post coronary artery bypass graft and AVM. 5. Left below-knee amputation. PLAN I discussed with the patient we will check his pulmonary function study and blood gas. Continue IV Solu-Medrol, aerosol treatment. I will start him on Advair twice a day. Monitor his electrolytes. Further treatment will depend on the course in the hospital. Thank you, Dr. Bowman, for this consultation. MD MARTIR Connor/ /4:47 PM /5:16 PM MTDD
[2016-08-30] VITALS (8 sets, daily range): BP systolic 104–141; BP diastolic 64–90; PULSE 64–86; RESP 16–22; TEMP 97–99.8; O2SAT 93–97
[2016-08-30 00:08] LABS: BLOOD GAS CARBOXYHEMOGLOBIN 1.6 % (0-4); BLOOD GAS HCO3 24 mmol/L (22-26); BLOOD GAS METHEMOGLOBIN 0.9 % (0-2); BLOOD GAS O2 HGB SATURATION 93 % (90-100); BLOOD GAS OXYGEN CONTENT 16.3 Vol % (12.0-20.0); BLOOD GAS PCO2 35 mmHg (38-42); BLOOD GAS PO2 74 mmHg (61-120); BLOOD GAS TOTAL HGB 12.4 G/DL (12.0-16.0); TEMP CORR TO 98.6
[2016-08-30 00:11] LABS: CRITICAL VALUE NO; FIO2 21 %; OXYGEN DEVICE ROOM AIR
[2016-08-30 00:12] LABS: DRAW SITE RT RADIAL
[2016-08-30 00:13] LABS: NUMBER OF ARTERIAL PUNCTURES 1; STAT NO; ULNAR PULSE PRESENT
[2016-08-30 04:58] LABS: AUTOMATED NEUTROPHIL # 9.7 TH/MM3 (1.8-7.7); BASOPHIL % 0.1 % (0.0-2.0); HEMATOCRIT 35.5 % (39.0-51.0); HEMO FLAGS DIFF FINAL; LYMPH % 5.2 % (9.0-44.0); LYMPHOCYTE # 0.5 TH/MM3 (1.0-4.8); MEAN CELL VOLUME 86.9 FL (80.0-100.0); MEAN CORPUSCULAR HEMOGLOBIN 28.9 PG (27.0-34.0); MEAN CORPUSCULAR HGB CONC 33.3 % (32.0-36.0); MONO % 2.4 % (0.0-8.0); NEUT % 92.3 % (16.0-70.0); PLATELET COUNT 245 TH/MM3 (150-450); RED BLOOD COUNT 4.08 MIL/MM3 (4.50-5.90); WHITE BLOOD COUNT 10.5 TH/MM3 (4.0-11.0)
[2016-08-30] MEDS: MORPHINE SULFATE 60 MG CONTROLLED RELEASE TAB PO SCH ×2 (05:55→18:23)
[2016-08-30] MEDS: AZITHROMYCIN INJ 500 MG in SODIUM CHLOR 0.9% 250 ML INJ 250 ML IV SCH (05:55)
[2016-08-30] MEDS: cefTRIAXone INJ 1,000 MG in SODIUM CHLORIDE 0.9% INJ 100 ML IV SCH (05:56)
[2016-08-30] MEDS: methylPREDNISolone SOD SUCC 40 MG/1 ML VIAL IV PUSH SCH ×4 (05:58→23:54)
[2016-08-30] MEDS: HEPARIN SODIUM - SQ 10,000 UNITS/ML VIAL SQ SCH ×2 (05:59→18:23)
[2016-08-30] MEDS: LEVOTHYROXINE SODIUM 200 MCG TAB PO SCH (06:19)
[2016-08-30] MEDS: RESP: ALBUTEROL 2.5 MG/IPRATROPIUM 0.5 MG NEB (SCH) NEB ×3 (07:29→20:47)
[2016-08-30] MEDS: SODIUM CHLORIDE 0.9% FLUSH 5 ML FLUSH FLUSH SCH ×2 (09:00→20:04)
[2016-08-30] MEDS: CETIRIZINE HCL 10 MG TAB PO SCH (09:39)
[2016-08-30] MEDS: amLODIPine BESYLATE 5 MG TAB PO SCH (09:39)
[2016-08-30] MEDS: FLUTICASONE PROPIONATE 50 MCG/ACT 16 GM NASAL SPRAY EACH NARE SCH (09:40)
--- NOTE | 2016-08-30 11:59 | HHI.PR ---
Subjective Subjective Remarks still coughing and wheezing, improved from yesterday no fever no chest pain some sob no fever right leg swelling is better Review of Systems Constitutional Constitutional Remarks 12 point ROS completed, negative except as noted above Vitals/Results Intake & Output 08/29/16 08/29/16 08/30/16 15:00 23:00 07:00 Intake Total 600 ml 1476 ml 460 ml Output Total 750 ml 800 ml 600 ml Balance -150 ml 676 ml -140 ml Intake Oral 600 ml 660 ml 460 ml IV Total 816 ml Output Urine Total 750 ml 800 ml 600 ml # Bowel Movements 0 0 Vital Signs Vital Signs Date Time Temp Pulse Resp B/P Pulse Ox O2 Delivery O2 Flow Rate FiO2 08/30/16 08:00 97.0 86 18 141/90 93 08/30/16 07:30 97 Nasal Cannula 2.00 08/30/16 04:04 97.4 64 22 111/64 96 08/30/16 00:01 98.2 84 20 140/84 95 08/29/16 21:34 96 Nasal Cannula 2.00 08/29/16 20:22 97.8 87 19 143/92 96 08/29/16 19:22 89 08/29/16 16:00 98.4 81 16 143/92 97 08/29/16 13:58 98 Nasal Cannula 2.00 08/29/16 12:00 98.2 83 16 141/89 96 CBC/BMP: 08/30/16 0422 08/30/16 0422 Lab Results Laboratory Tests Test 08/29/16 08/29/16 08/30/16 17:07 23:51 04:22 Troponin I LESS THAN 0.02 NG/ML Blood Gas Puncture Site RT RADIAL Blood Gas Patient Temperature 98.6 Blood Gas HCO3 24 mmol/L Blood Gas Base Excess 0.0 mmol/L Blood Gas Oxygen Saturation 93 % Arterial Blood pH 7.45 Arterial Blood Partial 35 mmHg Pressure CO2 Arterial Blood Partial 74 mmHg Pressure O2 Arterial Blood Oxygen Content 16.3 Vol % Arterial Blood 1.6 % Carboxyhemoglobin Arterial Blood Methemoglobin 0.9 % Blood Gas Hemoglobin 12.4 G/DL Oxygen Delivery Device ROOM AIR Blood Gas Inspired Oxygen 21 % White Blood Count 10.5 TH/MM3 Red Blood Count 4.08 MIL/MM3 Hemoglobin 11.8 GM/DL Hematocrit 35.5 % Mean Corpuscular Volume 86.9 FL Mean Corpuscular Hemoglobin 28.9 PG Mean Corpuscular Hemoglobin 33.3 % Concent Red Cell Distribution Width 13.0 % Platelet Count 245 TH/MM3 Mean Platelet Volume 7.8 FL Neutrophils (%) (Auto) 92.3 % Lymphocytes (%) (Auto) 5.2 % Monocytes (%) (Auto) 2.4 % Eosinophils (%) (Auto) 0.0 % Basophils (%) (Auto) 0.1 % Neutrophils # (Auto) 9.7 TH/MM3 Lymphocytes # (Auto) 0.5 TH/MM3 Monocytes # (Auto) 0.3 TH/MM3 Eosinophils # (Auto) 0.0 TH/MM3 Basophils # (Auto) 0.0 TH/MM3 CBC Comment DIFF FINAL Differential Comment Sodium Level 139 MEQ/L Potassium Level 4.0 MEQ/L Chloride Level 102 MEQ/L Carbon Dioxide Level 26.0 MEQ/L Anion Gap 11 MEQ/L Blood Urea Nitrogen 23 MG/DL Creatinine 1.18 MG/DL Estimat Glomerular Filtration 63 ML/MIN Rate Random Glucose 151 MG/DL Calcium Level 8.8 MG/DL Physical Exam General General Appearance: Well Developed, Well Nourished, No Acute Distress, Comfortable Eyes Eye Exam: Pupils Equal, Pupils Reactive Ears & Nose Ears & Nose Exam: Nasal Mucosa [place] Throat Throat Exam: Oral Mucosa [place] & Moist Neck Neck Exam: Neck Supple, Trachea Midline Pulmonary Resp Remarks exp. wheeze Cardiology CV Exam: Regular Gastrointestinal/Abdomen GI Exam: Soft, Non-Tender, Bowel Sounds Present, Non-Distended Musculoskeletal MS Remarks Left BKA Integumentary Skin Exam: Warm, Dry Extremeties Extremities Exam: Pedal Pulses Palpable, Trace Edema Extremeties Remarks Right pedal pulse 2+ Neurologic Neuro Exam: Alert, Awake, Oriented, Speech Clear, Director Information Security Equal Psychiatric Psych Exam: Appropriate Responses VTE Prophylaxis VTE Prophylaxis Meds: Heparin Assessment/Plan Problem List: (1) Acute exacerbation of chronic obstructive pulmonary disease (COPD) (2) Hypothyroidism (3) Allergic rhinitis (4) Chronic thoracic aortic dissection (5) Allergic dermatitis (6) HTN (hypertension) (7) Chronic pain (8) Hx of thyroid cancer (9) Non compliance w medication regimen (10) Hx of hepatitis C (11) History of left below knee amputation Assessment/Plan 61-year-old male with history of one month of shortness of breath and wheezing that has failed outpatient therapy with nebulizer and inhaler. Complaints of nasal drainage as well as rash also x 1 month, possible allergic rhinitis. Possible COPD exacerbation vs asthma -continue with supplemental oxygen -Empiric antibiotics -Continue with Solu-Medrol 30 mg IV every 6 -Flonase 2 puffs intranasally daily -Zyrtec 10 mg by mouth daily -Benadryl when necessary -appreciate pulm input History of thyroid cancer, now hypothyroid and noncompliant with taking medication. TSH level 69.9 -Continue levothyroxine 20 g by mouth daily We'll need repeat TSH in 6 weeks -Discussed with patient at length the need to remain compliant with taking medication Chronic thoracic aortic dissection, known type I aortic dissection -Cardiothoracic surgery consultation, Dr. Campos has evaluated, no further interventions. Continue with present tx Control BP, better, continue Norvasc 5 mg by mouth daily -Clonidine when necessary for elevated blood pressure Right leg swelling, r/o DVT, hx DVT left leg -swelling improved, neg. DVT Chronic back pain Continue with home medications Hyperlipidemia Patient doesn't take any medications at home Needs to follow up as outpatient with primary care physician Heparin 5000 units subcutaneous every 12 for DVT prophylaxis improving poss. dc tomorrow D/W RN D/W Dr. Bowman D/W pt. This patient was seen by myself and Dr. Bowman, this note is written on his behalf Problem Qualifiers (1) Hypothyroidism: Qualified Code: E03.9 - Hypothyroidism, unspecified type (2) Allergic rhinitis: (3) HTN (hypertension): Qualified Code: I10 - Essential hypertension (4) Chronic pain: Qualified Code: G89.4 - Chronic pain syndrome Sharon Alejandro Aug 30, 2016 11:59
--- NOTE | 2016-08-30 17:19 | HHI.PR ---
Subjective Remarks 61 YOWM with COPD,S/p Thoracic anerysm repair mild sob has wheezing No Fever Objective Vital Signs Vital Signs Date Time Temp Pulse Resp B/P Pulse Ox O2 Delivery O2 Flow Rate FiO2 08/30/16 08:00 97.0 86 18 141/90 93 08/30/16 08:00 97.7 73 18 113/77 95 08/30/16 07:30 97 Nasal Cannula 2.00 08/30/16 04:04 97.4 64 22 111/64 96 08/30/16 00:01 98.2 84 20 140/84 95 08/29/16 21:34 96 Nasal Cannula 2.00 08/29/16 20:22 97.8 87 19 143/92 96 08/29/16 19:22 89 I/O 08/29/16 08/29/16 08/29/16 08/30/16 08/30/16 08/30/16 07:00 15:00 23:00 07:00 15:00 23:00 Intake Total 600 ml 1476 ml 460 ml Output Total 750 ml 800 ml 600 ml Balance -150 ml 676 ml -140 ml Intake Oral 600 ml 660 ml 460 ml IV Total 816 ml Output Urine Total 750 ml 800 ml 600 ml # Bowel Movements 0 0 Result Diagram: 08/30/1642108/30/16421 Objective Remarks GENERAL: MBMN WM,Mild sob SKIN: Warm and dry. HEAD: Normocephalic. EYES: No scleral icterus. No injection or drainage. NECK: Supple, trachea midline. No JVD or lymphadenopathy. CARDIOVASCULAR: Regular rate and rhythm without murmurs, gallops, or rubs. RESPIRATORY: Breath sounds equal bilaterally. No accessory muscle use. Exp rhonchi GASTROINTESTINAL: Abdomen soft, non-tender, nondistended. MUSCULOSKELETAL: No cyanosis, or edema. Left BKA BACK: Nontender without obvious deformity. No CVA tenderness. A/P Assessment and Plan COPD exac improving Bronchitis S/p CABG,AVR S/P Thoracic anerysm repair Left BKA PLAN: Aerosol nebs Cont Steroids Rocephin and Zithro Supplement 02 Jarrell Sagastume MD Aug 30, 2016 17:19
[2016-08-31] VITALS (8 sets, daily range): BP systolic 107–138; BP diastolic 64–94; PULSE 62–88; RESP 18–22; TEMP 96.6–98.7; O2SAT 94–96
[2016-08-31] MEDS: cefTRIAXone INJ 1,000 MG in SODIUM CHLORIDE 0.9% INJ 100 ML IV SCH (05:21)
[2016-08-31] MEDS: LEVOTHYROXINE SODIUM 200 MCG TAB PO SCH (05:22)
[2016-08-31] MEDS: HEPARIN SODIUM - SQ 10,000 UNITS/ML VIAL SQ SCH ×2 (05:22→18:06)
[2016-08-31] MEDS: methylPREDNISolone SOD SUCC 40 MG/1 ML VIAL IV PUSH SCH ×2 (05:22→11:29)
[2016-08-31] MEDS: MORPHINE SULFATE 60 MG CONTROLLED RELEASE TAB PO SCH ×2 (06:23→18:04)
[2016-08-31] MEDS: AZITHROMYCIN INJ 500 MG in SODIUM CHLOR 0.9% 250 ML INJ 250 ML IV SCH (06:24)
[2016-08-31] MEDS: RESP: ALBUTEROL 2.5 MG/IPRATROPIUM 0.5 MG NEB (SCH) NEB ×3 (07:19→19:56)
[2016-08-31] MEDS: amLODIPine BESYLATE 5 MG TAB PO SCH (08:08)
[2016-08-31] MEDS: CETIRIZINE HCL 10 MG TAB PO SCH (08:08)
[2016-08-31] MEDS: SODIUM CHLORIDE 0.9% FLUSH 5 ML FLUSH FLUSH SCH ×2 (08:09→23:36)
[2016-08-31] MEDS: FLUTICASONE PROPIONATE 50 MCG/ACT 16 GM NASAL SPRAY EACH NARE SCH (08:09)
--- NOTE | 2016-08-31 12:00 | HHI.FF ---
Face to Face Verification Diagnosis: (1) Acute exacerbation of chronic obstructive pulmonary disease (COPD) Physical Therapy Order: Evaluate and Treat Home Health Nursing Order: Medical education Signs/symptoms of disease process Oxygen administration education Nursing assessment with vital signs Pantry Steward/Stewardess Order: To Evaluate: Living conditions/environment, Support services I have seen patient Nirmal Frank on 08/31/16. My clinical findings support the need for the requested home health care services because: Patient has SOB Deconditioned w/ increased weakness I certify that my clinical findings support that this patient is homebound because: Hx COPD- exertion dyspnea/weakness Sharon Alejandro Aug 31, 2016 12:00
--- NOTE | 2016-08-31 12:15 | HHI.PR ---
Subjective Subjective Remarks inc coughing some wheezing no cp anxious to go home no fever eating okay Review of Systems Constitutional Constitutional Remarks 12 point ROS completed, negative except as noted above Vitals/Results Intake & Output 08/30/16 08/30/16 08/31/16 15:00 23:00 07:00 Intake Total 849 ml 879 ml Output Total 100 ml 1000 ml Balance 749 ml -121 ml Intake Oral 480 ml 480 ml IV Total 369 ml 399 ml Output Urine Total 100 ml 1000 ml # Voids 2 # Bowel Movements 0 0 Vital Signs Vital Signs Date Time Temp Pulse Resp B/P Pulse Ox O2 Delivery O2 Flow Rate FiO2 08/31/16 07:19 95 Nasal Cannula 2.50 08/31/16 05:05 97.4 64 20 138/94 94 08/31/16 01:07 98.2 88 22 120/94 96 08/30/16 23:03 97.4 80 22 104/70 94 08/30/16 20:47 94 Nasal Cannula 2.50 08/30/16 20:00 65 08/30/16 15:30 99.8 66 16 126/73 97 CBC/BMP: 08/30/16 0422 08/30/16 0422 Physical Exam General General Appearance: Well Developed, Well Nourished, No Acute Distress, Comfortable Eyes Eye Exam: Pupils Equal, Pupils Reactive Ears & Nose Ears & Nose Exam: Nasal Mucosa [place] Throat Throat Exam: Oral Mucosa [place] & Moist Neck Neck Exam: Neck Supple, Trachea Midline Pulmonary Resp Remarks exp. wheeze Cardiology CV Exam: Regular Gastrointestinal/Abdomen GI Exam: Soft, Non-Tender, Bowel Sounds Present, Non-Distended Musculoskeletal MS Remarks Left BKA Integumentary Skin Exam: Warm, Dry Extremeties Extremities Exam: Pedal Pulses Palpable, Trace Edema Extremeties Remarks Right pedal pulse 2+ Neurologic Neuro Exam: Alert, Awake, Oriented, Speech Clear, General Adjuster Equal Psychiatric Psych Exam: Appropriate Responses VTE Prophylaxis VTE Prophylaxis Meds: Heparin Assessment/Plan Problem List: (1) Acute exacerbation of chronic obstructive pulmonary disease (COPD) (2) Hypothyroidism (3) Allergic rhinitis (4) Chronic thoracic aortic dissection (5) Allergic dermatitis (6) HTN (hypertension) (7) Chronic pain (8) Hx of thyroid cancer (9) Non compliance w medication regimen (10) Hx of hepatitis C (11) History of left below knee amputation Assessment/Plan 61-year-old male with history of one month of shortness of breath and wheezing that has failed outpatient therapy with nebulizer and inhaler. Complaints of nasal drainage as well as rash also x 1 month, possible allergic rhinitis. Possible COPD exacerbation vs asthma -continue with supplemental oxygen -Empiric antibiotics -change to PO steroids -Flonase 2 puffs intranasally daily -Zyrtec 10 mg by mouth daily -Benadryl when necessary -appreciate pulm input -Add Lazarasalon History of thyroid cancer, now hypothyroid and noncompliant with taking medication. TSH level 69.9 -Continue levothyroxine 20 g by mouth daily We'll need repeat TSH in 6 weeks -Discussed with patient at length the need to remain compliant with taking medication Chronic thoracic aortic dissection, known type I aortic dissection -Cardiothoracic surgery consultation, Dr. Campos has evaluated, no further interventions. Continue with present tx Control BP, better, continue Norvasc 5 mg by mouth daily -Clonidine when necessary for elevated blood pressure Right leg swelling, r/o DVT, hx DVT left leg -swelling improved, neg. DVT Chronic back pain Continue with home medications Hyperlipidemia Patient doesn't take any medications at home Needs to follow up as outpatient with primary care physician Heparin 5000 units subcutaneous every 12 for DVT prophylaxis walk test for oxygen CM consult for dc planning, HHC, PT, oxygen not ready for dc yet, still wheezing, and coughing poss. dc tomorrow D/W RN D/W Dr. Bowman D/W pt. D/W CM This patient was seen by myself and Dr. Bowman, this note is written on his behalf Problem Qualifiers (1) Hypothyroidism: Qualified Code: E03.9 - Hypothyroidism, unspecified type (2) Allergic rhinitis: (3) HTN (hypertension): Qualified Code: I10 - Essential hypertension (4) Chronic pain: Qualified Code: G89.4 - Chronic pain syndrome Sharon Alejandro Aug 31, 2016 12:15
[2016-08-31] MEDS ORDERED: BENZONATATE 100 MG CAP PO PRN (13:15)
--- NOTE | 2016-08-31 20:09 | HHI.PR ---
Subjective Remarks 61 YOWM with COPD,S/p Thoracic anerysm repair mild sob has wheezing No Fever Breathing better Intermittent wheezing Objective Vital Signs Vital Signs Date Time Temp Pulse Resp B/P Pulse Ox O2 Delivery O2 Flow Rate FiO2 08/31/16 19:57 96 Nasal Cannula 2.00 08/31/16 16:00 98.7 67 19 124/73 94 08/31/16 12:00 97.3 72 18 123/68 96 08/31/16 08:00 96.6 69 19 107/78 95 08/31/16 07:19 95 Nasal Cannula 2.50 08/31/16 05:05 97.4 64 20 138/94 94 08/31/16 01:07 98.2 88 22 120/94 96 08/30/16 23:03 97.4 80 22 104/70 94 08/30/16 20:47 94 Nasal Cannula 2.50 I/O 08/30/16 08/30/16 08/30/16 08/31/16 08/31/16 08/31/16 07:00 15:00 23:00 07:00 15:00 23:00 Intake Total 460 ml 849 ml 879 ml 240 ml Output Total 600 ml 100 ml 1000 ml 350 ml Balance -140 ml 749 ml -121 ml -110 ml Intake Oral 460 ml 480 ml 480 ml 240 ml IV Total 369 ml 399 ml Output Urine Total 600 ml 100 ml 1000 ml 350 ml # Voids 2 1 # Bowel Movements 0 0 0 Result Diagram: 08/30/1642108/30/16421 Objective Remarks GENERAL: MBMN WM,Mild sob SKIN: Warm and dry. HEAD: Normocephalic. EYES: No scleral icterus. No injection or drainage. NECK: Supple, trachea midline. No JVD or lymphadenopathy. CARDIOVASCULAR: Regular rate and rhythm without murmurs, gallops, or rubs. RESPIRATORY: Breath sounds equal bilaterally. No accessory muscle use. Exp rhonchi GASTROINTESTINAL: Abdomen soft, non-tender, nondistended. MUSCULOSKELETAL: No cyanosis, or edema. Left BKA BACK: Nontender without obvious deformity. No CVA tenderness. A/P Assessment and Plan COPD exac improving Bronchitis S/p CABG,AVR S/P Thoracic anerysm repair Left BKA PLAN: Aerosol nebs Cont Steroids Rocephin and Zithro Supplement 02 PFT Aneja,Jarrell Dev MD Aug 31, 2016 20:08
[2016-08-31] MEDS: predniSONE 20 MG TAB PO SCH (23:37)
[2016-08-31] MEDS: CEFUROXIME AXETIL 500 MG TAB PO SCH (23:37)
[2016-09-01 00:38] VITALS: BP 126/82; PULSE 64; RESP 19; TEMP 96.8; O2SAT 92
[2016-09-01 04:13] VITALS: BP 122/81; PULSE 58; RESP 19; TEMP 96.8; O2SAT 95
[2016-09-01] MEDS: LEVOTHYROXINE SODIUM 200 MCG TAB PO SCH (05:55)
[2016-09-01] MEDS: HEPARIN SODIUM - SQ 10,000 UNITS/ML VIAL SQ SCH (05:55)
[2016-09-01] MEDS: MORPHINE SULFATE 60 MG CONTROLLED RELEASE TAB PO SCH (05:56)
[2016-09-01 08:15] VITALS: PULSE 69
[2016-09-01 08:18] VITALS: BP 137/84; PULSE 60; RESP 16; TEMP 97.4; O2SAT 94
[2016-09-01] MEDS: RESP: ALBUTEROL 2.5 MG/IPRATROPIUM 0.5 MG NEB (SCH) NEB ×2 (08:55→13:11)
[2016-09-01 08:57] VITALS: O2SAT 96
[2016-09-01] MEDS: FLUTICASONE PROPIONATE 50 MCG/ACT 16 GM NASAL SPRAY EACH NARE SCH (09:54)
[2016-09-01] MEDS: CEFUROXIME AXETIL 500 MG TAB PO SCH (09:56)
[2016-09-01] MEDS: SODIUM CHLORIDE 0.9% FLUSH 5 ML FLUSH FLUSH SCH (09:56)
[2016-09-01] MEDS: amLODIPine BESYLATE 5 MG TAB PO SCH (09:56)
[2016-09-01] MEDS: predniSONE 20 MG TAB PO SCH (09:56)
[2016-09-01] MEDS: CETIRIZINE HCL 10 MG TAB PO SCH (09:57)
--- NOTE | 2016-09-01 11:26 | HHI.PR ---
Subjective Remarks 61 YOWM with COPD,S/p Thoracic anerysm repair mild sob No Fever Breathing better Intermittent wheezing Breathing treatment and IS helps him to cough Some time palpitation, no CP or dizziness Objective Vital Signs Vital Signs Date Time Temp Pulse Resp B/P Pulse Ox O2 Delivery O2 Flow Rate FiO2 09/01/16 08:57 96 Nasal Cannula 2.00 09/01/16 08:18 97.4 60 16 137/84 94 09/01/16 08:15 69 09/01/16 07:29 18 09/01/16 07:29 18 09/01/16 04:13 96.8 58 19 122/81 95 09/01/16 00:38 96.8 64 19 126/82 92 08/31/16 20:28 97.3 62 19 130/64 95 08/31/16 19:57 96 Nasal Cannula 2.00 08/31/16 16:00 98.7 67 19 124/73 94 08/31/16 12:00 97.3 72 18 123/68 96 I/O 08/31/16 08/31/16 08/31/16 09/01/16 09/01/16 09/01/16 07:00 15:00 23:00 07:00 15:00 23:00 Intake Total 879 ml 240 ml 480 ml 480 ml Output Total 1000 ml 350 ml 400 ml 700 ml Balance -121 ml -110 ml 80 ml -220 ml Intake Oral 480 ml 240 ml 480 ml 480 ml IV Total 399 ml Output Urine Total 1000 ml 350 ml 400 ml 700 ml # Voids 1 1 # Bowel Movements 0 0 0 Result Diagram: 08/30/1642108/30/16421 Objective Remarks GENERAL: MBMN WM,Mild sob SKIN: Warm and dry. HEAD: Normocephalic. EYES: No scleral icterus. No injection or drainage. NECK: Supple, trachea midline. No JVD or lymphadenopathy. CARDIOVASCULAR: Regular rate and rhythm without murmurs, gallops, or rubs. RESPIRATORY: Breath sounds equal bilaterally. No accessory muscle use. Exp rhonchi GASTROINTESTINAL: Abdomen soft, non-tender, nondistended. MUSCULOSKELETAL: No cyanosis, or edema. Left BKA BACK: Nontender without obvious deformity. No CVA tenderness. A/P Assessment and Plan COPD exac improving Bronchitis S/p CABG,AVR S/P Thoracic anerysm repair Left BKA PLAN: Aerosol nebs Predisone 20 mg bid PO Abx Check PFT Supplement 02 Jarrell Sagastume MD Sep 01, 2016 11:26
[2016-09-01] MEDS ORDERED: FLUT50SP EACH NARE (11:54)
[2016-09-01] MEDS ORDERED: CETI10 PO (11:54)
[2016-09-01] MEDS ORDERED: BENZ100 PO (11:54)
[2016-09-01] MEDS ORDERED: CEFT500T3 PO (11:54)
--- NOTE | 2016-09-01 11:55 | HHI.DCPOC ---
Discharge Care Plan Diagnosis: (1) Acute exacerbation of chronic obstructive pulmonary disease (COPD) (2) Allergic dermatitis (3) HTN (hypertension) (4) Chronic pain (5) Hx of thyroid cancer (6) Non compliance w medication regimen (7) Hx of hepatitis C (8) History of left below knee amputation (9) Chronic thoracic aortic dissection (10) Hypothyroidism (11) Respiratory distress (12) Allergic rhinitis Your Health Problems Are: Skin Breakdown Cough Shortness of Breath Goals to Promote Your Health * To prevent worsening of your condition and complications * To maintain your health at the optimal level Directions to Meet Your Goals Take your medications as prescribed Follow your dietary instruction Follow activity as directed Keep your appointments as scheduled Take your immunizations and boosters as scheduled If your symptoms worsen call your PCP, if no PCP go to Urgent Care Center or Emergency Room Smoking is Dangerous to Your Health. Avoid second hand smoke Call the 24-hour hour crisis hotline for domestic abuse at Sharon Alejandro Sep 01, 2016 11:55
[2016-09-01 12:38] VITALS: BP 129/81; PULSE 62; RESP 18; TEMP 97.9; O2SAT 95
[2016-09-01] MEDS ORDERED: VENTAER INH (12:45)
[2016-09-01] MEDS ORDERED: PRED20 PO (12:45)
[2016-09-01] MEDS ORDERED: AMLO5 PO (12:47)
--- NOTE | 2016-09-01 12:48 | HHI.PR ---
Subjective Subjective Remarks less cough and wheezing no fever no cp right leg swelling down feels ready to go home no acute changes overnight Review of Systems Constitutional Constitutional Remarks 12 point ROS completed, negative except as noted above Vitals/Results Intake & Output 08/31/16 08/31/16 09/01/16 15:00 23:00 07:00 Intake Total 240 ml 480 ml 480 ml Output Total 350 ml 400 ml 700 ml Balance -110 ml 80 ml -220 ml Intake Oral 240 ml 480 ml 480 ml Output Urine Total 350 ml 400 ml 700 ml # Voids 1 1 # Bowel Movements 0 0 Vital Signs Vital Signs Date Time Temp Pulse Resp B/P Pulse Ox O2 Delivery O2 Flow Rate FiO2 09/01/16 08:57 96 Nasal Cannula 2.00 09/01/16 08:18 97.4 60 16 137/84 94 09/01/16 08:15 69 09/01/16 07:29 18 09/01/16 07:29 18 09/01/16 04:13 96.8 58 19 122/81 95 09/01/16 00:38 96.8 64 19 126/82 92 08/31/16 20:28 97.3 62 19 130/64 95 08/31/16 19:57 96 Nasal Cannula 2.00 08/31/16 16:00 98.7 67 19 124/73 94 CBC/BMP: 08/30/16 0422 08/30/16 0422 Physical Exam General General Appearance: Well Developed, Well Nourished, No Acute Distress, Comfortable Eyes Eye Exam: Pupils Equal, Pupils Reactive Ears & Nose Ears & Nose Exam: Nasal Mucosa [place] Throat Throat Exam: Oral Mucosa [place] & Moist Neck Neck Exam: Neck Supple, Trachea Midline Pulmonary Resp Remarks exp. wheeze Cardiology CV Exam: Regular Gastrointestinal/Abdomen GI Exam: Soft, Non-Tender, Bowel Sounds Present, Non-Distended Musculoskeletal MS Remarks Left BKA Integumentary Skin Exam: Warm, Dry Extremeties Extremities Exam: Pedal Pulses Palpable, Trace Edema Extremeties Remarks Right pedal pulse 2+ Neurologic Neuro Exam: Alert, Awake, Oriented, Speech Clear, Cover Remover Equal Psychiatric Psych Exam: Appropriate Responses VTE Prophylaxis VTE Prophylaxis Meds: Heparin Assessment/Plan Problem List: (1) Acute exacerbation of chronic obstructive pulmonary disease (COPD) (2) Hypothyroidism (3) Allergic rhinitis (4) Chronic thoracic aortic dissection (5) Allergic dermatitis (6) HTN (hypertension) (7) Chronic pain (8) Hx of thyroid cancer (9) Non compliance w medication regimen (10) Hx of hepatitis C (11) History of left below knee amputation Assessment/Plan 61-year-old male with history of one month of shortness of breath and wheezing that has failed outpatient therapy with nebulizer and inhaler. Complaints of nasal drainage as well as rash also x 1 month, possible allergic rhinitis. Possible COPD exacerbation vs asthma -continue with supplemental oxygen -Empiric antibiotics-now on PO -continue PO steroids -Flonase 2 puffs intranasally daily -Zyrtec 10 mg by mouth daily -Benadryl when necessary -appreciate pulm input -Continue Tessalon History of thyroid cancer, now hypothyroid and noncompliant with taking medication. TSH level 69.9 -Continue levothyroxine 20 g by mouth daily We'll need repeat TSH in 6 weeks -Discussed with patient at length the need to remain compliant with taking medication Chronic thoracic aortic dissection, known type I aortic dissection -Cardiothoracic surgery consultation, Dr. Campos has evaluated, no further interventions. Continue with present tx Control BP, better, continue Norvasc 5 mg by mouth daily -Clonidine when necessary for elevated blood pressure Right leg swelling, r/o DVT, hx DVT left leg -swelling improved, neg. DVT Chronic back pain Continue with home medications Hyperlipidemia Patient doesn't take any medications at home Needs to follow up as outpatient with primary care physician Heparin 5000 units subcutaneous every 12 for DVT prophylaxis walk test for oxygen-doesn't need CM consult for dc planning, HHC, PT, Discharge home today with HHC F/U Dr. Sagastume 2 weeks F/U PCP 1 week Diet-heart healthy Activity- as tolerated D/W RN D/W Dr. Bowman D/W pt. D/W CM This patient was seen by myself and Dr. Bowman, this note is written on his behalf Discharge Minutes: 45 Problem Qualifiers (1) Hypothyroidism: Qualified Code: E03.9 - Hypothyroidism, unspecified type (2) Allergic rhinitis: (3) HTN (hypertension): Qualified Code: I10 - Essential hypertension (4) Chronic pain: Qualified Code: G89.4 - Chronic pain syndrome Sharon Alejandro Sep 01, 2016 12:48
--- NOTE | 2016-09-01 12:48 | HHI.DS ---
Discharge Summary Admission Date Aug 29, 2016 at 08:56 Discharge Date: Sep 01, 2016 Admitting Diagnosis COPD exacerbation, hypothyroidism, chronic aortic dissection (1) Acute exacerbation of chronic obstructive pulmonary disease (COPD) (2) Respiratory distress (3) Chronic thoracic aortic dissection (4) Hypothyroidism (5) Allergic rhinitis (6) Allergic dermatitis (7) Non compliance w medication regimen (8) HTN (hypertension) (9) Hx of thyroid cancer (10) Hx of hepatitis C (11) History of left below knee amputation (12) Chronic pain CBC/BMP: 08/30/16 0422 08/30/16 0422 Significant Findings Laboratory Tests Test 08/29/16 08/29/16 08/30/16 17:07 23:51 04:22 Troponin I LESS THAN 0.02 NG/ML (0.02-0.05) Arterial Blood pH 7.45 (7.380-7.420) Arterial Blood Partial 35 mmHg (38-42) Pressure CO2 Red Blood Count 4.08 MIL/MM3 (4.50-5.90) Hemoglobin 11.8 GM/DL (13.0-17.0) Hematocrit 35.5 % (39.0-51.0) Neutrophils (%) (Auto) 92.3 % (16.0-70.0) Lymphocytes (%) (Auto) 5.2 % (9.0-44.0) Neutrophils # (Auto) 9.7 TH/MM3 (1.8-7.7) Lymphocytes # (Auto) 0.5 TH/MM3 (1.0-4.8) Blood Urea Nitrogen 23 MG/DL (7-18) Estimat Glomerular Filtration 63 ML/MIN (>89) Rate Random Glucose 151 MG/DL (74-106) Imaging Last Impressions Lower Extremity Ultrasound 08/29/16 0000 Signed Impressions: Service Date/Time: Monday, August 29, 2016 09:31 - CONCLUSION: No DVT. Jos Robbins MD CT Angiography 08/29/16 0000 Signed Impressions: Service Date/Time: Monday, August 29, 2016 02:14 - CONCLUSION: 1. Aortic dissection beginning in transverse aorta and extending distally to just above the renal arteries. Proximally the dissection extends slightly into the proximal subclavian artery and brachiocephalic artery. No extension into the common carotid arteries is identified. 2. Negative for pulmonary embolism. 3. Postoperative median sternotomy and aortic valve replacement. Chris Martines MD Chest X-Ray 08/28/16 [id number] Signed Impressions: Service Date/Time: Sunday, August 28, 2016 23:37 - CONCLUSION: 1. No focal consolidation or effusion. Postoperative median sternotomy. Tortuous aorta. Chris Martines MD Hospital Course This a 61-year-old male with history of thyroid cancer post resection, hypertension, hyperlipidemia, aneurysm post open heart for valve replacement and aneurysm repair. Patient presented to the emergency room complaining of shortness of breath and wheezing for the last month. Indicates he went to see his primary care physician and was given nebulizer and inhalers without any relief. He's had increased shortness of breath with activity, has not been able to sleep very well at night. Has had increased cough with sputum production not sure what color. No chest pain. Denies any fever, no chills. Denies any known history of COPD or emphysema. Indicates he smoked very little when he was a teenager. Does smoke occasional marijuana. Indicates he's had increased nasal drainage, has seasonal allergies. Has noted a rash around his neck that is itchy and scaly, this has been ongoing for the last month as well. Indicates that he has termites in his house with "droppings" and that may be contributing to his symptoms. Patient indicates that he was recently put on medications for blood pressure and also cholesterol but hasn't taken any of them. He does take medications for hypothyroid however he forgets to take them. He has a history of chronic pain and is on oxycodone and morphine. Patient was evaluated in the emergency room, he was afebrile, temperature 97.9, heart rate 82, RR 24, sats 93% on 3 L. Blood pressure 125/60. CBC was unremarkable. BMP was unremarkable other than total creatinine kinase was 329. Troponin was negative. B natruretic peptide 133. TSH was 69.9. Troponin was negative. Chest x-ray did not reveal any significant findings other than torturous aorta. D-dimer was elevated at 1.39 and therefore a CTA was completed. CTA was notable for aortic dissection beginning and transverse aorta and descending distally to just above the renal artery. Proximally, the dissection extends slightly into the proximal subclavian artery and brachiocephalic artery. No extension into the common carotid arteries is identified. Negative for pulmonary embolus. Postoperative median sternotomy and aortic valve replacement. Because of CTA findings,Dr. Campos was contacted by the emergency room physician and requested transfer to [facility] where patient had cardiothoracic surgery in the past. Emergency room physician was able to contact Dr. Tabares who is the cardiothoracic surgeon from [facility] in [place]. He said that this patient has a known type I aortic dissection. Given the fact that he has no chest pain and no symptoms of dissection there is no surgical emergency for this. He should be treated medically as a COPD exacerbation. If the patient had come to their institution no surgery would have been done and patient will be treated medically as well. Hence the need for transfer was not necessary. He was going to speak with the thoracic surgeon here Dr. Campos. Patient was medically treated in the emergency room, he was given 200 g of Synthroid. He was given 3 DuoNeb treatments and IV Solu-Medrol. He was noted wheezing intensely prior to treatments and this improved after treatments. Patient endorses that he has not taken blood pressure medications that was prescribed recently by his physician. Patient is not evaluated, indicates he is feeling improved. He is noted with the rash around his neck, it is itchy. He denies any recent medication changes, no recent outside travel. He is wheezing less but still feels short of breath at times. Does endorse leg swelling to the right leg. Is status post left below-knee amputation. Patient is admitted for further evaluation and treatment. Pt Condition on Discharge: Stable Discharge Disposition: Disch w/ Home Health Serv Discharge Instructions DIET: Follow Instructions for: Heart Healthy Diet Activities you can perform: Weight Bearing as Vladimir Follow up Referrals: PCP Follow-up Pulmonology - 2 Weeks with Jarrell Sagastume MD New Medications: Albuterol 18 GM Inh (Ventolin Hfa 18 GM Inh) 90 Mcg/Act Aer 2 PUFF INH Q4H PRN SHORTNESS OF BREATH #1 Ref 0 INHALER Amlodipine (Norvasc) 5 Mg Tab 5 MG PO DAILY Blood Pressure Management #30 Ref 1 TAB Benzonatate (Tessalon Perles) 100 Mg Cap 200 MG PO TID PRN cough #21 Ref 0 CAP Cefuroxime (Ceftin) 500 Mg Tab 500 MG PO Q12HR Infection #10 TAB Cetirizine (Cetirizine) 10 Mg Tab 10 MG PO DAILY ALLERGIES #30 Ref 1 TAB Fluticasone Nasal [place] (Fluticasone Nasal [place]) 50 Mcg/Act Naspr 2 SPRAY EACH NARE DAILY ALLERGIES #1 Ref 0 BOTTLE Prednisone (Prednisone) 20 Mg Tab 20 MG PO BID 20 mg orally twice a day x 2 days, then 20 mg orally x 4 days, then 10 mg orally x 4 days, then discontinue Broncospasm #10 TAB Continued Medications: Levothyroxine (Levothyroxine) 150 Mcg Tab 150 MCG PO DAILY Thyroid #30 Ref 0 TAB Morphine Sulfate CR (Morphine Sulfate CR) 60 Mg Tab 60 MG PO q12 Oxycodone (Oxycodone) 30 Mg Tab 30 MG PO Q6HR Pain Management Ref 0 TAB Sharon Alejandro Sep 01, 2016 12:48
--- NOTE | 2016-09-08 11:45 | RSPPFT ---
DATE OF PROCEDURE: 09/01/16 COMMENTS: Spirometry shows FVC of 3.4 at 88% of predicted, FEV1 of 2.6 at 82%, FEV1/FVC ratio is normal. Flow is decreased at FEF 25-75. There is no response following bronchodilator treatment. Flow volume loop indicates terminal airways obstruction. IMPRESSION: 1. Mild small airways obstructive lung disease. 2. No response after bronchodilator treatment.
== END 2016-09-01 15:43 | disposition home health service (06) | DRG 190 ==
LOC: NEPE 23:23 → NEDA 08-29 05:11 → HCPC 08-29 06:29 → OBSVTOIN 08-29 08:56 → N06A 08-30 08:03 → UNDODISIN 09-01 14:12
PROVIDERS: ADMIT Specialist; ATTEND Specialist
DX: J44.1 Chronic obstructive pulmonary disease with (acute) exacerbation (principal); I71.01 Dissection of thoracic aorta; I10 Essential (primary) hypertension; I25.10 Atherosclerotic heart disease of native coronary artery without angina pectoris; E78.5 Hyperlipidemia, unspecified; B19.20 Unspecified viral hepatitis C without hepatic coma; L23.9 Allergic contact dermatitis, unspecified cause; E89.0 Postprocedural hypothyroidism; G89.4 Chronic pain syndrome; F12.90 Cannabis use, unspecified, uncomplicated; Z85.850 Personal history of malignant neoplasm of thyroid; Z86.711 Personal history of pulmonary embolism; Z86.718 Personal history of other venous thrombosis and embolism; Z89.512 Acquired absence of left leg below knee; Z91.14 Patient's other noncompliance with medication regimen; Z95.1 Presence of aortocoronary bypass graft; Z95.2 Presence of prosthetic heart valve
CPT/HCPCS: 36600; 71010; 71275; 80048; 82550; 82552; 82805; 83735; 83880; 84443; 84484; 85025; 85379; 85610; 93005; 93971; 94620; 94640; 94664; 96374; J0456; J0696; J1644; J2920; J2930; J7050; J7512; Q9967

== ENCOUNTER 2017-03-26 13:31 | Inpatient (IN) | payer MEDICARE ==
[2017-03-26] VITALS (12 sets, daily range): BP systolic 118–171; BP diastolic 76–105; PULSE 70–95; RESP 14–20; TEMP 97.9–98.4; O2SAT 94–100
[~2017-03-26] VITALS: Ht 177.8 cm; Wt 84.0 kg
[~2017-03-26 13:31] MED LIST changes: +AMLO5 PO; +BENZ100 PO; +CEFT500T3 PO; +CETI10 PO; +FLUT50SP EACH NARE; -LEVO.125 PO; +LEVO150T7 PO; -MORP60TA20 PO; +MORP60TA24 PO; +OXYC30TA PO; +PRED20 PO; +VENTAER INH
[2017-03-26] MEDS ORDERED: IOHEXOL 350 MG/ML 10 ML VIAL (for RAD DIAG) IVCONTRAST ONE (13:32)
[2017-03-26] MEDS ORDERED: methylPREDNISolone SOD SUCC 125 MG/2 ML VIAL IV PUSH ONE (14:15)
[2017-03-26] MEDS ORDERED: SODIUM CHLORIDE 0.9% FLUSH 10 ML FLUSH IVF PRN (14:15)
--- NOTE | 2017-03-26 14:28 | RADRPT ---
EXAM DATE/TIME: 03/26/2017 13:54 [facility] COMPARISON: CHEST SINGLE AP, August 28, 2016, 23:37. INDICATIONS : Short of breath, chest pain. MEDICAL HISTORY : Hepatitis C. SURGICAL HISTORY : CABG. Thyroidectomy ENCOUNTER: Initial ACUITY: 1 day PAIN SCORE: 6/10 LOCATION: Bilateral chest FINDINGS: PA and lateral views of the chest demonstrate the lungs to be symmetrically aerated without evidence of mass, infiltrate or effusion. The cardiomediastinal contours are unremarkable. A prosthetic aorti c valve. Osseous structures are intact. CONCLUSION: No acute disease. Oziel Almanzar Jr., MD on March 26, 2017 at 14:25 Board Certified Radiologist. This report was verified electronically.
[2017-03-26] MEDS: RESP: ALBUTEROL 2.5 MG/IPRATROPIUM 0.5 MG NEB (SCH) INH ×2 (14:31→14:32)
[2017-03-26 15:25] LABS: APTT (PATIENT) 28.7 SEC (24.3-30.1); PROTHROMBIN TIME - PATIENT 10.7 SEC (9.8-11.6)
[2017-03-26 15:26] LABS: AUTOMATED NEUTROPHIL # 5.9 TH/MM3 (1.8-7.7); BASOPHIL % 0.5 % (0.0-2.0); EOSINOPHIL # 0.1 TH/MM3 (0-0.4); EOSINOPHIL % 1.5 % (0.0-4.0); HEMATOCRIT 43.5 % (39.0-51.0); HEMO FLAGS DIFF FINAL; LYMPH % 20.7 % (9.0-44.0); LYMPHOCYTE # 1.7 TH/MM3 (1.0-4.8); MEAN CELL VOLUME 87.6 FL (80.0-100.0); MEAN CORPUSCULAR HEMOGLOBIN 28.6 PG (27.0-34.0); MEAN CORPUSCULAR HGB CONC 32.7 % (32.0-36.0); MONO % 5.5 % (0.0-8.0); NEUT % 71.8 % (16.0-70.0); PLATELET COUNT 332 TH/MM3 (150-450); RED BLOOD COUNT 4.97 MIL/MM3 (4.50-5.90); RED CELL DISTRIBUTION WIDTH 13.8 % (11.6-17.2); WHITE BLOOD COUNT 8.2 TH/MM3 (4.0-11.0)
[2017-03-26 15:40] LABS: ALT (GPT) 57 U/L (12-78); ANION GAP 8 MEQ/L (5-15); AST (GOT) 54 U/L (15-37); BICARBONATE 22.6 MEQ/L (21.0-32.0); BLOOD UREA NITROGEN 9 MG/DL (7-18); CHLORIDE 107 MEQ/L (98-107); GLOMERULAR FILTRATION RATE 75 ML/MIN (>89); POTASSIUM 3.9 MEQ/L (3.5-5.1); SODIUM (NA) 138 MEQ/L (136-145)
[2017-03-26 15:41] LABS: ALKALINE PHOSPHATASE 103 U/L (45-117); CREATINE KINASE 141 U/L (39-308); TOTAL BILIRUBIN ADULT 0.3 MG/DL (0.2-1.0)
[2017-03-26 15:55] LABS: CKMB 4.6 NG/ML (0.5-3.6)
--- NOTE | 2017-03-26 16:43 | RADRPT ---
EXAM DATE/TIME: 03/26/2017 16:05 [facility] COMPARISON: CT PULMONARY ANGIOGRAM, August 29, 2016, 2:14. INDICATIONS : Short of breath, aortic dissection. IV CONTRAST: 100 cc Omnipaque 350 (iohexol) IV RADIATION DOSE: 8.26 CTDIvol (mGy) MEDICAL HISTORY : Hypertension. Cardiovascular disease SURGICAL HISTORY : Thyroidectomy. ENCOUNTER: Initial ACUITY: 1 day PAIN SCALE: 4/10 LOCATION: Bilateral chest TECHNIQUE: Volumetric scanning was performed using a multi-row detector CT scanner. The data was post processed with a variety of visualization algorithms including full volume maximum intensity projection, multi -planar sliding thin slab reformation, curved planar reformation, and surface rendering techniques. Using automated exposure control and adjustment of the mA and/or kV according to patient size, radiat ion dose was kept as low as reasonably achievable to obtain optimal diagnostic quality images. DICOM format image data is available electronically for review and comparison. FINDINGS: There is atherosclerotic elongation of the ascending aorta. The ascending aorta is dilated to 5 .75 cm. The ascending aorta just above the aortic valve cusp is irregular, sharply angulated and monica ngated without definite focal dissection. There is no pericardial effusion. There is focal dilatati on of the ascending aorta to the origin of the innominate and left subclavian. Aorta is mildly dilat ed proximal to the origin of the left subclavian where a dissection starts at the origin of the left subclavian. The origin is not involved.. . The dissection extends down the descending aorta to the SMA origin. The celiac origin over lays both the true and false lumen. There slightly less flow in the false lumen the true lumen. The false lumen measures 2.5 centers. The true lumen measures 1.5 cm. The descending aorta below the renal arteries appears normal.There is symmetrical perfusion to both k idneys. There is no ascites or adenopathy. The lungs are clear. Liver and spleen unremarkable. There is symmetrical perfusion of both kidneys. There is no ascites. CONCLUSION: Dissection descending aorta beginning at the level of the left subclavian with mildly symmetrical flow in both true and false lumen to the level of the superior mesenteric artery. The c eliac lower artery splits both lumens. There is symmetrical flow to both kidneys and the SMA. This is only slightly worsened compared to the CT scan of 08/29/2016. Findings were discussed with Dr. Crawford on today's date. Oscar Bynum MD FACR on March 26, 2017 at 16:29 Board Certified Radiologist. This report was verified electronically.
[2017-03-26] MEDS ORDERED: MORPHINE SULFATE 4 MG/ML INJ IV PUSH ONE (17:15)
--- NOTE | 2017-03-26 17:54 | PD ---
HPI Chief Complaint: Cardiac Complaint Time Seen by Provider: 13:53 Travel History International Travel<30 days: No Contact w/Intl Traveler<30days: No Traveled to known affect area: No History of Present Illness HPI Patient is a 61 year old male who comes in complaining of left sided chest pain and SOB. He has history of COPD and chronic aortic dissection. He says for the past 3 nights, he has been having pain to his left lateral ribs. He says that the sharp stabbing pain and he only gets it at night. Currently he has asymptomatic. He does feel like he is having a COPD issue. He says he has been using his albuterol inhaler without much results. He had a surgical repair of his aneurysm in [address] [facility]. He denies nausea or vomiting. He denies fever or chills. PFSH Past Medical History Cancer: Yes (THYROID) Cardiovascular Problems: Yes (aneurysm) Congestive Heart Failure: No COPD: Yes Coronary Artery Disease: Yes (anuerism) Diabetes: No Diminished Hearing: No Genitourinary: No Hepatitis: Yes (HEP-C) Hypertension: Yes Implanted Vascular Access Dvce: Yes Musculoskeletal: Yes Psychiatric: No Reproductive: No Respiratory: Yes Thyroid Disease: Yes (THyiROID WAS REMOVED DUE TO CANCER) Past Surgical History Body Medical Devices: aortic valve replacement Coronary Artery Bypass Graft: Yes Endocrine Surgery: Yes (THYROIDECTOMY) Thoracic Surgery: Yes (open heart surgery "heart aneurysm") Other Surgery: Yes (THYROIDECTOMY, lymph node resection ) Social History Alcohol Use: Yes (occ) Tobacco Use: No Substance Use: No Allergies-Medications (Allergen,Severity, Reaction): Coded Allergies: No Known Allergies (Verified , 03/26/17) Reported Meds & Prescriptions Reported Meds & Active Scripts Active Norvasc (Amlodipine Besylate) 5 Mg Tab 5 Mg PO DAILY Ventolin Hfa 18 GM Inh (Albuterol Sulfate) 90 Mcg/Act Aer 2 Puff INH Q4H PRN Fluticasone Nasal [place] 50 Mcg/Act Naspr 2 [place] EACH NARE DAILY Reported Oxycodone (Oxycodone HCl) 30 Mg Tab 30 Mg PO Q6HR Morphine Sulfate CR (Morphine Sulfate) 60 Mg Tab 60 Mg PO Q12 Levothyroxine (Levothyroxine Sodium) 150 Mcg Tab 150 Mcg PO DAILY Review of Systems Except as stated in HPI: all other systems reviewed are Neg General / Constitutional: No: Fever, Chills HENT: No: Headaches, Lightheadedness Cardiovascular: Positive: Chest Pain or Discomfort Respiratory: Positive: Shortness of Breath, Wheezing Gastrointestinal: No: Nausea, Vomiting Genitourinary: No: Dysuria Musculoskeletal: No: Myalgias Skin: No Rash, No Change in Pigmentation Neurologic: No: Weakness, Dizziness Physical Exam Narrative GENERAL: Awake and alert, in no acute distress. SKIN: Focused skin assessment warm/dry. HEAD: Atraumatic. Normocephalic. EYES: Pupils equal and round. No scleral icterus. ENT: Mucous membranes pink and moist. NECK: Trachea midline. No JVD. CARDIOVASCULAR: Regular rate and rhythm. No murmur appreciated. RESPIRATORY: No accessory muscle use. Bilateral diffuse wheezing. Breath sounds equal bilaterally. GASTROINTESTINAL: Abdomen soft, non-tender, nondistended. MUSCULOSKELETAL: No obvious deformities. No clubbing. No cyanosis. No edema. Left sided leg amputation. NEUROLOGICAL: Awake and alert. No obvious cranial nerve deficits. Motor grossly within normal limits. Normal speech. PSYCHIATRIC: Appropriate mood and affect; insight and judgment normal. Data Data Last Documented VS Vital Signs Date Time Temp Pulse Resp B/P (MAP) Pulse Ox O2 Delivery O2 Flow Rate FiO2 03/26/17 15:36 97.9 78 20 149/88 (108) 97 Room Air 03/26/17 14:33 21 Orders Orders Electrocardiogram (03/26/17 13:38) Chest, Pa & Lat (03/26/17 13:38) Complete Blood Count With Diff (03/26/17 14:14) Comprehensive Metabolic Panel (03/26/17 14:14) Act Partial Throm Time (Ptt) (03/26/17 14:14) Prothrombin Time / Inr (Pt) (03/26/17 14:14) Ckmb (Isoenzyme) Profile (03/26/17 14:14) Troponin I (03/26/17 14:14) Iv Access Insert/Monitor (03/26/17 14:14) Ecg Monitoring (03/26/17 14:14) Oximetry (03/26/17 14:14) Oxygen Administration (03/26/17 14:14) Sodium Chloride 0.9% Flush (Ns Flush) (03/26/17 14:15) Methylprednisolone So Succ Inj (Solumedr (03/26/17 14:15) Albuterol-Ipratropium Neb (Duoneb Neb) (03/26/17 14:15) Cta Thor Abd Aorta W Iv C W3d (03/26/17 14:14) CKMB (03/26/17 14:24) CKMB% (03/26/17 14:24) Iohexol 350 Inj (Omnipaque 350 Inj) (03/26/17 13:32) Morphine Inj (Morphine Inj) (03/26/17 17:15) Labetalol Inj (Trandate Inj) (03/26/17 17:30) Labs Laboratory Tests Test 03/26/17 14:24 White Blood Count 8.2 TH/MM3 Red Blood Count 4.97 MIL/MM3 Hemoglobin 14.2 GM/DL Hematocrit 43.5 % Mean Corpuscular Volume 87.6 FL Mean Corpuscular Hemoglobin 28.6 PG Mean Corpuscular Hemoglobin Concent 32.7 % Red Cell Distribution Width 13.8 % Platelet Count 332 TH/MM3 Mean Platelet Volume 7.8 FL Neutrophils (%) (Auto) 71.8 % Lymphocytes (%) (Auto) 20.7 % Monocytes (%) (Auto) 5.5 % Eosinophils (%) (Auto) 1.5 % Basophils (%) (Auto) 0.5 % Neutrophils # (Auto) 5.9 TH/MM3 Lymphocytes # (Auto) 1.7 TH/MM3 Monocytes # (Auto) 0.4 TH/MM3 Eosinophils # (Auto) 0.1 TH/MM3 Basophils # (Auto) 0.0 TH/MM3 CBC Comment DIFF FINAL Differential Comment Prothrombin Time 10.7 SEC Prothromb Time International Ratio 1.0 RATIO Activated Partial Thromboplast Time 28.7 SEC Blood Urea Nitrogen 9 MG/DL Creatinine 1.01 MG/DL Random Glucose 69 MG/DL Total Protein 8.0 GM/DL Albumin 3.9 GM/DL Calcium Level 8.9 MG/DL Alkaline Phosphatase 103 U/L Aspartate Amino Transf (AST/SGOT) 54 U/L Alanine Aminotransferase (ALT/SGPT) 57 U/L Total Bilirubin 0.3 MG/DL Sodium Level 138 MEQ/L Potassium Level 3.9 MEQ/L Chloride Level 107 MEQ/L Carbon Dioxide Level 22.6 MEQ/L Anion Gap 8 MEQ/L Estimat Glomerular Filtration Rate 75 ML/MIN Total Creatine Kinase 141 U/L Creatine Kinase MB 4.6 NG/ML Troponin I LESS THAN 0.02 NG/ML MDM Medical Decision Making Medical Screen Exam Complete: Yes Emergency Medical Condition: Yes Medical Record Reviewed: Yes Interpretation(s) ECG shows normal sinus rhythm with right bundle branch block. Differential Diagnosis ACS versus COPD exacerbation versus aortic dissection Narrative Course Patient is a 61-year-old male who comes in complaining of chest pain and shortness of breath. Exam shows bilateral wheezing. IV status, labs sent. Patient given 3 duo nebs and a dose of Solu-Medrol. Labs show no acute abnormalities. CT of his chest shows a chronic aortic dissection, with slight worsening. There is no evidence of leakage. Dr. Menard of vascular surgery was consulted. He came to see the patient. He suggested monitoring and repeating the CTA in a few days. He suggested maintaining blood pressure below 110-120. Patient started on labetalol drip. He'll be admitted for further management. He is requesting pain medicine for his chronic pain. He is not having chest pain currently. Diagnosis Primary Impression: Acute exacerbation of chronic obstructive pulmonary disease (COPD) Additional Impression: Aortic dissection Qualified Codes: I71.01 - Dissection of thoracic aorta Admitting Information Admitting Physician Requests: Admit Alondra Crawford MD Mar 26, 2017 17:54
--- NOTE | 2017-03-26 17:58 | PD.VS.CON ---
History of Present Illness Chief Complaint: SOB, chest pain, aortic dissection Consult Requested by: ED History of Present Illness 61 yo male with h/o type A dissection repaired at [facility] 2012 (Dr. Payton) with valve/root (30mm graft), open arch fenestration. Intraop also had pericardial patch reconstruction of R main PA, CABG x 1. He was discharged after 27 days on Mar 24, 2013. He was lost to f/u for the most part but did have a CT about 6 months ago. Over the past 3 weeks, he has been feeling progressively worse with SOB and severe fatigue. Each night for the past several nights he has had L lateral chest pain that is intermittent. He is not having it now. It is not like the pain he had in 2013 but still enough to make him concerned. He presents to ED for evaluation. Past/Family/Social History Past Medical History HTN Aortic dissection thyroid ca (surgery and I-131) venous stasis ulcers, L LE hepatitis Past Surgical History AVR/root and arch fenestration (dissection) - 2012 thyoidectomy L BKA (venou stasis) Social History smoker and former IVDA Family History NC Home Medications Active Scripts Amlodipine (Norvasc) 5 Mg Tab, 5 MG PO DAILY for Blood Pressure Management, #30 TAB 1 Refill Prov:Sharon AlejandroP 09/01/16 Albuterol 18 GM Inh (Ventolin Hfa 18 GM Inh) 90 Mcg/Act Aer, 2 PUFF INH Q4H Y for SHORTNESS OF BREATH, #1 INHALER 0 Refills Prov:Sharon AlejandroP 09/01/16 Fluticasone Nasal Grady (Fluticasone Nasal Grady) 50 Mcg/Act Naspr, 2 SPRAY EACH NARE DAILY for ALLERGIES, #1 BOTTLE 0 Refills Prov:Sharon AlejandroP 09/01/16 Reported Medications Oxycodone (Oxycodone) 30 Mg Tab, 30 MG PO Q6HR for Pain Management, TAB 0 Refills 08/28/16 Morphine Sulfate CR (Morphine Sulfate CR) 60 Mg Tab, 60 MG PO q12 08/28/16 Levothyroxine (Levothyroxine) 150 Mcg Tab, 150 MCG PO DAILY for Thyroid, #30 TAB 0 Refills 08/28/16 Discontinued Scripts Prednisone (Prednisone) 20 Mg Tab, 20 MG PO BID for Broncospasm, #10 TAB 20 mg orally twice a day x 2 days, then 20 mg orally x 4 days, then 10 mg orally x 4 days, then discontinue Prov:Sharon AlejandroP 09/01/16 Cetirizine (Cetirizine) 10 Mg Tab, 10 MG PO DAILY for ALLERGIES, #30 TAB 1 Refill Prov:Sharon Alejandro LUTE PACKER OR APPLIER 09/01/16 Cefuroxime (Ceftin) 500 Mg Tab, 500 MG PO Q12HR for Infection, #10 TAB Prov:Sharon Alejandro LUTE PACKER OR APPLIER 09/01/16 Benzonatate (Tessalon Perles) 100 Mg Cap, 200 MG PO TID Y for cough, #21 CAP 0 Refills Prov:Sharon AlejandroP 09/01/16 Coded Allergies: No Known Allergies (Verified , 03/26/17) Review of Systems Constitutional: COMPLAINS OF: Fatigue Respiratory: COMPLAINS OF: Shortness of breath Cardiovascular: COMPLAINS OF: Chest pain, Palpitations Gastrointestinal: DENIES: Abdominal pain Musculoskeletal: COMPLAINS OF: Back pain Physical Exam Vitals/I&O Date Time Temp Pulse Resp B/P (MAP) Pulse Ox O2 Delivery O2 Flow Rate FiO2 03/26/17 15:36 97.9 78 20 149/88 (108) 97 Room Air 03/26/17 14:33 100 21 03/26/17 14:20 79 20 99 Room Air 03/26/17 14:20 99 Room Air 03/26/17 14:20 20 99 Room Air 03/26/17 14:09 18 100 Room Air 03/26/17 13:35 98.4 73 14 171/105 (127) 96 Neuro: alert, oriented, no apparent distress but seems fatigued HEENT: NC/AT; lower neck incision from prior thyroidectomy Neck: no JVD Heart: reg rate, prominent S2 healed sternotomy Lungs: clear B Abdomen: NT Vascular: palpable B femoral pulses and R pedal pulse Extremities: L BKA Laboratory Tests Test 03/26/17 14:24 White Blood Count 8.2 Red Blood Count 4.97 Hemoglobin 14.2 Hematocrit 43.5 Mean Corpuscular Volume 87.6 Mean Corpuscular Hemoglobin 28.6 Mean Corpuscular Hemoglobin Concent 32.7 Red Cell Distribution Width 13.8 Platelet Count 332 Mean Platelet Volume 7.8 Neutrophils (%) (Auto) 71.8 Lymphocytes (%) (Auto) 20.7 Monocytes (%) (Auto) 5.5 Eosinophils (%) (Auto) 1.5 Basophils (%) (Auto) 0.5 Neutrophils # (Auto) 5.9 Lymphocytes # (Auto) 1.7 Monocytes # (Auto) 0.4 Eosinophils # (Auto) 0.1 Basophils # (Auto) 0.0 CBC Comment DIFF FINAL Differential Comment Prothrombin Time 10.7 Prothromb Time International Ratio 1.0 Activated Partial Thromboplast Time 28.7 Blood Urea Nitrogen 9 Creatinine 1.01 Random Glucose 69 Total Protein 8.0 Albumin 3.9 Calcium Level 8.9 Alkaline Phosphatase 103 Aspartate Amino Transf (AST/SGOT) 54 Alanine Aminotransferase (ALT/SGPT) 57 Total Bilirubin 0.3 Sodium Level 138 Potassium Level 3.9 Chloride Level 107 Carbon Dioxide Level 22.6 Anion Gap 8 Estimat Glomerular Filtration Rate 75 Total Creatine Kinase 141 Creatine Kinase MB 4.6 Troponin I LESS THAN 0.02 Last 48 hours Impressions Aorta CTA 03/26/17 1414 Signed Impressions: Service Date/Time: Sunday, March 26, 2017 16:05 - CONCLUSION: Dissection descending aorta beginning at the level of the left subclavian with mildly symmetrical flow in both true and false lumen to the level of the superior mesenteric artery. The celiac lower artery splits both lumens. There is symmetrical flow to both kidneys and the SMA. This is only slightly worsened compared to the CT scan of 08/29/2016. Findings were discussed with Dr. Crawford on today's date. Oscar Bynum MD FACR Chest X-Ray 03/26/17 1332 Signed Impressions: Service Date/Time: Sunday, March 26, 2017 13:54 - CONCLUSION: No acute disease. Oziel Almanzar Jr., MD Assessment and Plan Assessment: (1) Aortic dissection Status: Acute Plan 1. He has a chronic dissection and I don't think there is any acuity to his radiographic findings. He has mild aneurysmal degeneration to 4.5 cm maximal diameter by my centerpath analysis. The dissection starts at the L SCA and goes down to the celiac, which has both TL and FL perfusion. The SMA, both renals and both iliacs are TL-perfused. I also don't think that his episodic chest pain for each of the past 3 nights is from the aorta, but I would like to repeat his CTA in 48h to rule out ominous radiographic changes. In the meantime , he should have his BP aggressively controlled with goal SBP 110-130. 2. Needs TTE and w/u of 3 weeks of fatigue. 3. Check TSH for f/u of fatigue I will follow him closely and very likely, if repeat CT in 48h stable, will repeat in my clinic in 6m. If his thoracic aorta degenerates to about 6 cm, would require C-SC bypass and TEVAR, likely with intentional septal disruption. Tushar Menard MD FACS RPVI data governance consultant [facility] - Heart and Vascular Surgery at [facility] [phone] Problem Qualifiers (1) Aortic dissection: Qualified Codes: I71.03 - Dissection of thoracoabdominal aorta Tushar Menard MD Mar 26, 2017 17:58
[2017-03-26] MEDS: LABETALOL INJ 500 MG in SODIUM CHLORIDE 0.9% INJ 150 ML IV PRN (18:46)
--- NOTE | 2017-03-26 19:01 | HHI.HP ---
HPI Service Critical Care Medicine Primary Care Physician No Primary Care Physician Admission Diagnosis Aortic dissection Diagnosis: Travel History International Travel<30 Days: No Contact w/Intl Traveler <30 Da: No Traveled to Known Affected Are: No History of Present Illness 61-year-old male with past medical history of hypertension, COPD, hepatitis C, prior Type A aortic dissection in 2013 status post repair at [facility] who presents to [facility] ED today complaining of sharp episodic left sided chest pain. He states that the very first episode was 2-3 weeks ago and he has had 2 additional episode on consecutive nights (last night and the night before) . He has not had any pain tonight. He states that each episode felt like "a sharp razor blade" on his lateral chest wall at anterior to mid axillary line and lasted for "no more than 3 seconds" and was completely resolved in between. Occurred while he was sitting in a chair watching TV. The last 2 episodes were associated with palpitations. He also states that he has had SOB and wheezing over the last 3 days and has been using his nebulizers without complete relief. No pleuritic pain or hemoptysis. He has had a cough today without sputum production. No fever/chills, nausea, vomiting or diaphoresis. He has chronic leg and lower abdomen pain. He states that he sought medical treatment because he knows he has an aortic dissection and was concerned this may be the etiology even though the quality of the pain is much different. CT chest was performed and demonstrated dissection of the descending aorta L subclavian to SMA. SMA and renals are perfused. He had prior imaging 08/29/16 with similar findings. He has been evaluated by Dr. Menard and it is felt that pain is unlikely related to chronic dissection but will target SBP 110-120 and obtain repeat scan in 48 hours to assess stability. He was also wheezing with COPD exacerbation on arrival to ED and is now improved following Duoneb x3. Review of Systems Constitutional: DENIES: Fever Cardiovascular: COMPLAINS OF: Chest pain Past Family Social History Allergies: Coded Allergies: No Known Allergies (Verified , 03/26/17) Past Medical History Hypertension Aortic dissection 2012 Thyroid cancer Hepatitis C COPD Venous stasis ulcers now status post left BKA Past Surgical History Type A aortic dissection repair Thyroidectomy Left BKA Family History Father of lung cancer at age 58 He is not aware of his mother's family medical history because he lost with his mother when he was incarcerated and never got back in touch with her again Social History He smoked for 2 years as a teenager and then quit He previously used IV drugs stating he would inject "anything he can get his hands on" but quit 30-35 years ago Drinks 2 alcoholic beverages a night 3-4 days a week He was previously incarcerated He is retired but previously worked at a [employer] in [place] for 23 years Physical Exam Vital Signs Vital Signs Date Time Temp Pulse Resp B/P (MAP) Pulse Ox O2 Delivery O2 Flow Rate FiO2 03/26/17 18:48 82 16 151/81 (104) 97 Room Air 03/26/17 17:58 71 16 145/87 (106) 98 Room Air 03/26/17 15:36 97.9 78 20 149/88 (108) 97 Room Air 03/26/17 14:33 100 21 03/26/17 14:20 79 20 99 Room Air 03/26/17 14:20 99 Room Air 03/26/17 14:20 20 99 Room Air 03/26/17 14:09 18 100 Room Air 03/26/17 13:35 98.4 73 14 171/105 (127) 96 Physical Exam GENERAL: Well-nourished, well-developed patient who is pleasant, talkative in ED stretcher. SKIN: Warm and dry. There is some scaling of L BKA stump. HEAD: Atraumatic. Normocephalic. EYES: Pupils equal and round, 2 mm and reactive. No scleral icterus. No injection or drainage. ENT: No nasal bleeding or discharge. Mucous membranes pink and moist. Has had multiple prior dental extractions. No pharyngeal erythema. NECK: Trachea midline. No JVD. CARDIOVASCULAR: Regular rate and rhythm, 3/6 systolic murmur upper and lower LSB. RESPIRATORY: Breathing comfortably with no accessory muscle use. No wheeze or rhonchi. GASTROINTESTINAL: Abdomen soft, non-tender, nondistended. Bowel sounds present. : voiding in urinal, yellow urine output. MUSCULOSKELETAL: Extremities without clubbing, cyanosis, or edema. s/p L BKA. right lower extremity with venous stasis changes. 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 NEUROLOGICAL: Awake and alert. No obvious cranial nerve deficits. Motor grossly within normal limits. Five out of 5 muscle strength in the arms and legs. Normal speech. Laboratory Laboratory Tests Test 10/13/17 14:24 White Blood Count 8.2 Red Blood Count 4.97 Hemoglobin 14.2 Hematocrit 43.5 Mean Corpuscular Volume 87.6 Mean Corpuscular Hemoglobin 28.6 Mean Corpuscular Hemoglobin Concent 32.7 Red Cell Distribution Width 13.8 Platelet Count 332 Mean Platelet Volume 7.8 Neutrophils (%) (Auto) 71.8 Lymphocytes (%) (Auto) 20.7 Monocytes (%) (Auto) 5.5 Eosinophils (%) (Auto) 1.5 Basophils (%) (Auto) 0.5 Neutrophils # (Auto) 5.9 Lymphocytes # (Auto) 1.7 Monocytes # (Auto) 0.4 Eosinophils # (Auto) 0.1 Basophils # (Auto) 0.0 CBC Comment DIFF FINAL Differential Comment Prothrombin Time 10.7 Prothromb Time International Ratio 1.0 Activated Partial Thromboplast Time 28.7 Blood Urea Nitrogen 9 Creatinine 1.01 Random Glucose 69 Total Protein 8.0 Albumin 3.9 Calcium Level 8.9 Alkaline Phosphatase 103 Aspartate Amino Transf (AST/SGOT) 54 Alanine Aminotransferase (ALT/SGPT) 57 Total Bilirubin 0.3 Sodium Level 138 Potassium Level 3.9 Chloride Level 107 Carbon Dioxide Level 22.6 Anion Gap 8 Estimat Glomerular Filtration Rate 75 Total Creatine Kinase 141 Creatine Kinase MB 4.6 Troponin I LESS THAN 0.02 Result Diagram: 03/26/17 1424 03/26/17 142 Caprini VTE Risk Assessment Caprini VTE Risk Assessment: Mod/High Risk (score >= 2) Caprini Risk Assessment Model Point Value = 1 Point Value = 2 Point Value = 3 Point Value = 5 Age 41-60 Minor surgery BMI > 25 kg/m2 Swollen legs Varicose veins or History of unexplained or recurrent spontaneous Oral contraceptives or hormone replacement Sepsis (< 1 month) Serious lung disease, including pneumonia (< 1 month) Abnormal pulmonary function Acute myocardial infarction Congestive heart failure (< 1 month) History of inflammatory bowel disease Medical patient at bed rest Age 61-74 Arthroscopic surgery Major open surgery (> 45 min) Laparoscopic surgery (> 45 min) Malignancy Confined to bed (> 72 hours) Immobilizing plaster cast Central venous access Age >= 75 History of VTE Family history of VTE Factor V Leiden Prothrombin [id number] Lupus anticoagulant Anticardiolipin antibodies Elevated serum homocysteine Heparin-induced thrombocytopenia Other congenital or acquired thrombophilia Stroke (< 1 month) Elective arthroplasty Hip, pelvis, or leg fracture Acute spinal cord injury (< 1 month) Prophylaxis Regimen Total Risk Factor Score Risk Level Prophylaxis Regimen 0-1 Low Early ambulation 2 Moderate Order ONE of the following: *Sequential Compression Device (SCD) *Heparin 5000 units SQ BID 3-4 Higher Order ONE of the following medications: *Heparin 5000 units SQ TID *Enoxaparin/Lovenox 40 mg SQ daily (WT < 150 kg, CrCl > 30 mL/min) *Enoxaparin/Lovenox 30 mg SQ daily (WT < 150 kg, CrCl > 10-29 mL/min) *Enoxaparin/Lovenox 30 mg SQ BID (WT < 150 kg, CrCl > 30 mL/min) AND/OR *Sequential Compression Device (SCD) 5 or more Highest Order ONE of the following medications: *Heparin 5000 units SQ TID (Preferred with Epidurals) *Enoxaparin/Lovenox 40 mg SQ daily (WT < 150 kg, CrCl > 30 mL/min) *Enoxaparin/Lovenox 30 mg SQ daily (WT < 150 kg, CrCl > 10-29 mL/min) *Enoxaparin/Lovenox 30 mg SQ BID (WT < 150 kg, CrCl > 30 mL/min) AND *Sequential Compression Device (SCD) Assessment and Plan Problem List: (1) Hypothyroidism ICD Code: E03.9 - Hypothyroidism, unspecified Status: Chronic (2) Chronic thoracic aortic dissection ICD Code: I71.01 - Dissection of thoracic aorta Status: Chronic (3) HTN (hypertension) ICD Code: I10 - Essential (primary) hypertension Status: Chronic (4) Hx of thyroid cancer ICD Code: Z85.850 - Personal history of malignant neoplasm of thyroid Status: Chronic (5) Non compliance w medication regimen ICD Code: Z91.14 - Patient's other noncompliance with medication regimen Status: Chronic (6) Hx of hepatitis C ICD Code: Z86.19 - Personal history of other infectious and parasitic diseases Status: Chronic (7) History of left below knee amputation ICD Code: Z89.512 - Acquired absence of left leg below knee Status: Chronic (8) Aortic dissection ICD Code: I71.00 - Dissection of unspecified site of aorta Status: Chronic (9) Acute exacerbation of chronic obstructive pulmonary disease (COPD) ICD Code: J44.1 - Chronic obstructive pulmonary disease with (acute) exacerbation Status: Acute (10) Tobacco abuse ICD Code: Z72.0 - Tobacco use Status: Resolved Assessment and Plan NEURO: Chronic pain Remote history of IV drug use Clarified pain medication regimen with patient. He states he is on morphine 60 mg by mouth every 12 and oxycodone 30 mg by mouth every 6 hours. He states has not taken his long-acting morphine at all today. Continued these home meds. Was overly sedated and had transient hypotension after oxycodone 30 so discontinued this. RESP: COPD with acute exacerbation Former smoker Received Solu-Medrol 125 mg IV in the emergency department and DuoNeb 3. Wheezing resolved and he states SOB is better. DuoNeb every 6 hours. Albuterol every 2 hours as needed. Continue prednisone for COPD exacerbation 60 mg by mouth daily for 5 days. CV: HTN Chronic Aortic dissection Follow-up serial cardiac markers. Obtain 2-D echo Labetalol drip to target systolic blood pressure 110-120. Patient's baseline blood pressure on arrival was 149/88. He states he had not taken his Norvasc at all today, resumed. GI: Hepatitis C Heart healthy diet. FEN/RENAL: Monitor I/O. ID: Monitor for signs and symptoms of infection. HEME: No acute hematologic issues. ENDO: History of thyroid cancer status post thyroidectomy Hypothyroidism Previously was on Synthroid 200 g by mouth daily. TSH was 69.93/. Reportedly had been noncompliant with Synthroid at that time. Today TSH is 27.2. He reports continued noncompliance, says he hasn't taken synthroid "in a while". This may very well be the source of his fatigue. Resume synthroid 150 mcg po daily. PROPH: Heparin 5000 subcut for DVT prophylaxis. Protonix 40 mg po daily for stress ulcer prophylaxis. ACCESS: Peripheral IV providing adequate access at this time. Level 3 H and P Problem Qualifiers (1) Hypothyroidism: Qualified Codes: E89.0 - Postprocedural hypothyroidism (2) HTN (hypertension): Qualified Codes: I10 - Essential (primary) hypertension (3) Aortic dissection: Qualified Codes: I71.03 - Dissection of thoracoabdominal aorta Carole Edmonds MD Mar 26, 2017 19:01
[2017-03-26] MEDS ORDERED: BISACODYL 10 MG SUPP RECTAL PRN (19:15)
[2017-03-26] MEDS ORDERED: MISCELLANEOUS NURSING INFORMATION XX SCH (19:15)
[2017-03-26] MEDS ORDERED: SODIUM CHLORIDE 0.9% FLUSH 10 ML FLUSH IV FLUSH PRN (19:15)
[2017-03-26] MEDS ORDERED: ONDANSETRON HCL 4 MG/2 ML VIAL IV PUSH PRN (19:15)
[2017-03-26] MEDS ORDERED: SENNOSIDES 8.6 MG TAB PO PRN (19:15)
[2017-03-26] MEDS ORDERED: MAGNESIUM HYDROXIDE SUSP 30 ML CUP PO PRN (19:15)
[2017-03-26] MEDS ORDERED: ACETAMINOPHEN 325 MG TAB PO PRN (19:15)
[2017-03-26] MEDS ORDERED: LACTULOSE SYRUP 20 GM/30 ML CUP PO PRN (19:15)
[2017-03-26] MEDS ORDERED: RESP: ALBUTEROL 2.5 MG/3 ML NEB (PRN) NEB (19:15)
[2017-03-26] MEDS ORDERED: CHLORHEXIDINE GLUCONATE 2 % 1 PACK (2 CLOTHS) TOP PRN (19:15)
--- NOTE | 2017-03-26 21:13 | EKG ---
Date Performed: 03/26/2017 Time Performed: 19:32:32 PTAGE: 61 years EKG: Sinus rhythm POSSIBLE LEFT ATRIAL ENLARGEMENT RIGHT BUNDLE BRANCH BLOCK Nonspecific T wave changes ABNORMAL ECG N o significant change from prior electrocardiogram. PREVIOUS TRACING : 03/26/2017 13.43 DOCTOR: Dru Torres Interpretating Date/Time 03/26/2017 21:12:49
--- NOTE | 2017-03-26 21:25 | EKG ---
Date Performed: 03/26/2017 Time Performed: 13:43:06 PTAGE: 61 years EKG: Baseline artifact present Sinus rhythm WITH SINUS ARRHYTHMIA POSSIBLE LEFT ATRIAL ENLARGEMENT RIGHT BUNDLE BRANCH BLOCK ABNORMAL ECG No sig nificant change from prior electrocardiogram. PREVIOUS TRACING : 08/28/2016 23.37 DOCTOR: Dru Torres Interpretating Date/Time 03/26/2017 21:24:33
[2017-03-26] MEDS: MORPHINE SULFATE 60 MG CONTROLLED RELEASE TAB PO SCH (21:34)
[2017-03-26] MEDS: RESP: ALBUTEROL 2.5 MG/IPRATROPIUM 0.5 MG NEB (SCH) NEB (21:38)
[2017-03-26] MEDS: DOCUSATE SODIUM 50 MG/SENNA 8.6 MG TAB PO SCH (23:02)
[2017-03-26] MEDS: HEPARIN SODIUM - SQ 10,000 UNITS/ML VIAL SQ SCH (23:02)
[2017-03-26] MEDS: SODIUM CHLORIDE 0.9% FLUSH 10 ML FLUSH IV FLUSH SCH (23:02)
[2017-03-27] VITALS (14 sets, daily range): BP systolic 85–105; BP diastolic 51–70; PULSE 60–78; RESP 12–18; TEMP 98–98.7; O2SAT 93–96
[2017-03-27] MEDS: LABETALOL INJ 500 MG in SODIUM CHLORIDE 0.9% INJ 150 ML IV PRN (00:06)
[2017-03-27] MEDS ORDERED: SODIUM CHLORID 0.9% 500 ML INJ 500 ML IV ONE (02:30)
[2017-03-27] MEDS: RESP: ALBUTEROL 2.5 MG/IPRATROPIUM 0.5 MG NEB (SCH) NEB ×4 (02:54→19:53)
[2017-03-27] MEDS: CHLORHEXIDINE GLUCONATE 2 % 1 PACK (2 CLOTHS) TOP SCH (04:00)
[2017-03-27 04:02] LABS: AUTOMATED NEUTROPHIL # 8.5 TH/MM3 (1.8-7.7); HEMATOCRIT 40.3 % (39.0-51.0); HEMO FLAGS DIFF FINAL; LYMPH % 8.8 % (9.0-44.0); LYMPHOCYTE # 0.8 TH/MM3 (1.0-4.8); MEAN CELL VOLUME 87.1 FL (80.0-100.0); MEAN CORPUSCULAR HGB CONC 33.3 % (32.0-36.0); MONO % 2.7 % (0.0-8.0); NEUT % 88.5 % (16.0-70.0); PLATELET COUNT 297 TH/MM3 (150-450); RED BLOOD COUNT 4.63 MIL/MM3 (4.50-5.90); RED CELL DISTRIBUTION WIDTH 13.3 % (11.6-17.2); WHITE BLOOD COUNT 9.6 TH/MM3 (4.0-11.0)
[2017-03-27 04:14] LABS: BICARBONATE 22.3 MEQ/L (21.0-32.0); MAGNESIUM 1.8 MG/DL (1.5-2.5); POTASSIUM 4.2 MEQ/L (3.5-5.1)
[2017-03-27] MEDS ORDERED: LEVOTHYROXINE SODIUM 150 MCG TAB PO SCH (06:00)
--- NOTE | 2017-03-27 06:32 | PD.VS.PN ---
Subjective Subjective/Hospital Course Pt resting this morning. No chest pain except once momentarily last night. No distress. Does endorse abdominal pain this morning. Objective Vitals/I&O Date Time Temp Pulse Resp B/P (MAP) Pulse Ox O2 Delivery O2 Flow Rate FiO2 03/27/17 03:00 98.1 69 12 103/60 (74) 93 03/26/17 23:00 98.0 73 16 118/76 (90) 96 03/26/17 23:00 73 03/26/17 21:47 95 21 03/26/17 21:41 03/26/17 21:15 98.2 95 18 131/97 (108) 97 03/26/17 21:15 70 03/26/17 20:11 79 18 136/81 (99) 94 Room Air 03/26/17 19:34 82 18 128/83 (98) 95 Room Air 03/26/17 19:05 86 18 135/80 (98) Room Air 03/26/17 18:48 82 16 151/81 (104) 97 Room Air 03/26/17 17:58 71 16 145/87 (106) 98 Room Air 03/26/17 15:36 97.9 78 20 149/88 (108) 97 Room Air 03/26/17 14:33 100 21 03/26/17 14:20 79 20 99 Room Air 03/26/17 14:20 99 Room Air 03/26/17 14:20 20 99 Room Air 03/26/17 14:09 18 100 Room Air 03/26/17 13:35 98.4 73 14 171/105 (127) 96 03/27/17 03/27/17 03/27/17 06:59 14:59 22:59 Intake Total 2680 ml Output Total 650 ml Balance 2030 ml Physical Exam Resting in bed. No abdominal tenderness or guarding on palpation. Palpable femoral pulses Laboratory Laboratory Tests Test 03/26/17 14:24 03/26/17 19:40 03/27/17 03:16 03/27/17 05:01 White Blood Count 8.2 9.6 Red Blood Count 4.97 4.63 Hemoglobin 14.2 13.4 Hematocrit 43.5 40.3 Mean Corpuscular Volume 87.6 87.1 Mean Corpuscular Hemoglobin 28.6 29.0 Mean Corpuscular Hemoglobin Concent 32.7 33.3 Red Cell Distribution Width 13.8 13.3 Platelet Count 332 297 Mean Platelet Volume 7.8 7.8 Neutrophils (%) (Auto) 71.8 88.5 Lymphocytes (%) (Auto) 20.7 8.8 Monocytes (%) (Auto) 5.5 2.7 Eosinophils (%) (Auto) 1.5 0.0 Basophils (%) (Auto) 0.5 0.0 Neutrophils # (Auto) 5.9 8.5 Lymphocytes # (Auto) 1.7 0.8 Monocytes # (Auto) 0.4 0.3 Eosinophils # (Auto) 0.1 0.0 Basophils # (Auto) 0.0 0.0 CBC Comment DIFF FINAL DIFF FINAL Differential Comment Prothrombin Time 10.7 Prothromb Time International Ratio 1.0 Activated Partial Thromboplast Time 28.7 Blood Urea Nitrogen 9 14 Creatinine 1.01 1.26 Random Glucose 69 118 Total Protein 8.0 Albumin 3.9 Calcium Level 8.9 8.7 Alkaline Phosphatase 103 Aspartate Amino Transf (AST/SGOT) 54 Alanine Aminotransferase (ALT/SGPT) 57 Total Bilirubin 0.3 Sodium Level 138 137 Potassium Level 3.9 4.2 Chloride Level 107 106 Carbon Dioxide Level 22.6 22.3 Anion Gap 8 9 Estimat Glomerular Filtration Rate 75 58 Total Creatine Kinase 141 Creatine Kinase MB 4.6 Troponin I LESS THAN 0.02 LESS THAN 0.02 LESS THAN 0.02 Thyroid Stimulating Hormone 3rd Gen 27.200 Phosphorus Level 4.1 Magnesium Level 1.8 Imaging Last 48 hours Impressions Aorta CTA 03/26/17 1414 Signed Impressions: Service Date/Time: Sunday, March 26, 2017 16:05 - CONCLUSION: Dissection descending aorta beginning at the level of the left subclavian with mildly symmetrical flow in both true and false lumen to the level of the superior mesenteric artery. The celiac lower artery splits both lumens. There is symmetrical flow to both kidneys and the SMA. This is only slightly worsened compared to the CT scan of 08/29/2016. Findings were discussed with Dr. Crawford on today's date. Oscar Bynum MD FACR Chest X-Ray 03/26/17 1338 Signed Impressions: Service Date/Time: Sunday, March 26, 2017 13:54 - CONCLUSION: No acute disease. Oziel Almanzar Jr., MD Assessment and Plan Assessment: (1) Aortic dissection Status: Acute Plan 1. I suspect his chronic descending component of the aortic dissection is stable and needs only BP management (goal SBP 110-130) and outpatient f/u. Plan for repeat CTA tomorrow, 48h after presentation. 2. Needs TTE 3. TSH elevated - 4. From my standpoint, stable to go to medical floor on telemetry Tushar Menard MD FACS RPVI front worker [facility] - Heart and Vascular Surgery at [facility] [phone] Problem Qualifiers (1) Aortic dissection: Qualified Codes: I71.03 - Dissection of thoracoabdominal aorta Tushar Menard MD Mar 27, 2017 06:32
[2017-03-27] MEDS: LEVOTHYROXINE SODIUM 150 MCG TAB PO SCH (07:00)
--- NOTE | 2017-03-27 07:39 | HHI.CCPN ---
Subjective Remarks/Hospital Course 61-year-old male with past medical history of hypertension, COPD, hepatitis C, prior Type A aortic dissection in 2013 status post repair at [facility] who presents to [facility] today complaining of sharp episodic left sided chest pain. He states that the very first episode was 2-3 weeks ago and he has had 2 additional episode on consecutive nights (last night and the night before) . He has not had any pain tonight. He states that each episode felt like "a sharp razor blade" on his lateral chest wall at anterior to mid axillary line and lasted for "no more than 3 seconds" and was completely resolved in between. Occurred while he was sitting in a chair watching TV. The last 2 episodes were associated with palpitations. He also states that he has had SOB and wheezing over the last 3 days and has been using his nebulizers without complete relief. No pleuritic pain or hemoptysis. He has had a cough today without sputum production. No fever/chills, nausea, vomiting or diaphoresis. He has chronic leg and lower abdomen pain. He states that he sought medical treatment because he knows he has an aortic dissection and was concerned this may be the etiology even though the quality of the pain is much different. CT chest was performed and demonstrated dissection of the descending aorta L subclavian to SMA. SMA and renals are perfused. He had prior imaging 08/29/16 with similar findings. He has been evaluated by Dr. Menard and it is felt that pain is unlikely related to chronic dissection but will target SBP 110-120 and obtain repeat scan in 48 hours to assess stability. He was also wheezing with COPD exacerbation on arrival to ED and is now improved following Duoneb x3. SUBJ 03/27: Lying in bed. No acute distress. Blood pressure adequately controlled. Dr. Menard planning on repeat CTA in 48 hours Objective Vital Signs Date Time Temp Pulse Resp B/P (MAP) Pulse Ox O2 Delivery O2 Flow Rate FiO2 03/27/17 03:00 98.1 69 12 103/60 (74) 93 03/26/17 21:47 21 03/26/17 20:11 Room Air Intake and Output 03/27/17 03/27/17 03/28/17 08:00 16:00 00:00 Intake Total 2680 ml Output Total 650 ml Balance 2030 ml Result Diagram: 03/27/17 0316 03/27/17315 Objective Remarks GENERAL: Well-nourished, well-developed patient who is lying comfortably on ICU but SKIN: Warm and dry. There is some scaling of L BKA stump. HEAD: Atraumatic. Normocephalic. EYES: Pupils equal and round, 2 mm and reactive. No scleral icterus. No injection or drainage. ENT: No nasal bleeding or discharge. Has had multiple prior dental extractions. No pharyngeal erythema. NECK: Trachea midline. No JVD. CARDIOVASCULAR: Regular rate and rhythm, 3/6 systolic murmur upper and lower LSB. RESPIRATORY: Breathing comfortably with no accessory muscle use. No wheeze or rhonchi. GASTROINTESTINAL: Abdomen soft, non-tender, nondistended. Bowel sounds present. : voiding in urinal, yellow urine output. MUSCULOSKELETAL: Extremities without clubbing, cyanosis, or edema. s/p L BKA. right lower extremity with venous stasis changes. 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 NEUROLOGICAL: Awake and alert. No obvious cranial nerve deficits. Motor grossly within normal limits. Normal speech. A/P Problem List: (1) Chronic thoracic aortic dissection ICD Code: I71.01 - Dissection of thoracic aorta Status: Chronic (2) Acute exacerbation of chronic obstructive pulmonary disease (COPD) ICD Code: J44.1 - Chronic obstructive pulmonary disease with (acute) exacerbation Status: Acute (3) Hypothyroidism ICD Code: E03.9 - Hypothyroidism, unspecified Status: Chronic (4) HTN (hypertension) ICD Code: I10 - Essential (primary) hypertension Status: Chronic (5) Hx of thyroid cancer ICD Code: Z85.850 - Personal history of malignant neoplasm of thyroid Status: Chronic (6) Non compliance w medication regimen ICD Code: Z91.14 - Patient's other noncompliance with medication regimen Status: Chronic (7) Hx of hepatitis C ICD Code: Z86.19 - Personal history of other infectious and parasitic diseases Status: Chronic (8) History of left below knee amputation ICD Code: Z89.512 - Acquired absence of left leg below knee Status: Chronic (9) Aortic dissection ICD Code: I71.00 - Dissection of unspecified site of aorta Status: Chronic (10) Tobacco abuse ICD Code: Z72.0 - Tobacco use Status: Resolved Assessment and Plan NEURO: Chronic pain Remote history of IV drug use Patient takes morphine 60 mg by mouth every 12 and oxycodone 30 mg by mouth every 6 hours. Was overly sedated and had transient hypotension after oxycodone 30 so discontinued. RESP: COPD with acute exacerbation Former smoker Received Solu-Medrol 125 mg IV in the emergency department and DuoNeb 3. Wheezing resolved and he states SOB is better. DuoNeb every 6 hours. Albuterol every 2 hours PRN. Continue prednisone for COPD exacerbation 60 mg by mouth daily for 5 days. CV: Chronic Aortic dissection Atypical chest pain HTN Heart murmur Follow-up serial cardiac markers. 2-D echo pending DC Labetalol drip. Target systolic blood pressure <120-130 Resumed on Norvasc, continue PRN IV Labetalol Vascular DrFredi is following. Repeat CT angiogram in 48 hours Start low dose beta ruben metoprolol 12.5 mg po BID with holding parameters GI: Hepatitis C Heart healthy diet. FEN/RENAL: Monitor I/O. ID: Monitor for signs and symptoms of infection. HEME: No acute hematologic issues. ENDO: History of thyroid cancer status post thyroidectomy Hypothyroidism On Synthroid 150 g by mouth daily. TSH 27.2 Noncompliant with Synthroid at that time. PROPH: Heparin 5000 subcut for DVT prophylaxis (cleared by shannan). Protonix 40 mg po daily for stress ulcer prophylaxis. ACCESS: Peripheral IV providing adequate access at this time. Level [address] Menard to transfer to [facility] with Tele. Consult [facility] for medical management Problem Qualifiers (1) Hypothyroidism: Qualified Codes: E89.0 - Postprocedural hypothyroidism (2) HTN (hypertension): Qualified Codes: I10 - Essential (primary) hypertension (3) Aortic dissection: Qualified Codes: I71.03 - Dissection of thoracoabdominal aorta Veronica Juarez MD Mar 27, 2017 07:39
[2017-03-27] MEDS ORDERED: LABETALOL HCL 100 MG/20 ML VIAL IV PUSH PRN (07:45)
[2017-03-27] MEDS ORDERED: PILL SPLITTER OTHER PRN (08:15)
[2017-03-27] MEDS: amLODIPine BESYLATE 5 MG TAB PO SCH (09:00)
[2017-03-27] MEDS: METOPROLOL TARTRATE 25 MG TAB PO SCH ×2 (09:00→21:00)
[2017-03-27] MEDS: PANTOPRAZOLE SOD 40 MG DELAYED RELEASE TAB PO SCH (09:54)
[2017-03-27] MEDS: DOCUSATE SODIUM 50 MG/SENNA 8.6 MG TAB PO SCH ×2 (09:54→20:48)
[2017-03-27] MEDS: predniSONE 20 MG TAB PO SCH (09:54)
[2017-03-27] MEDS: HEPARIN SODIUM - SQ 10,000 UNITS/ML VIAL SQ SCH ×2 (09:55→20:48)
[2017-03-27] MEDS: SODIUM CHLORIDE 0.9% FLUSH 10 ML FLUSH IV FLUSH SCH ×2 (09:55→20:55)
[2017-03-27] MEDS: MORPHINE SULFATE 60 MG CONTROLLED RELEASE TAB PO SCH ×2 (10:50→20:39)
--- NOTE | 2017-03-27 12:08 | EKG ---
Date Performed: 03/27/2017 Time Performed: 01:29:50 PTAGE: 61 years EKG: Sinus rhythm with PAC(s) Right bundle branch block Abnormal ECG Unfortunately, both EKGs have marked artifact but I see no definite changes. PREVIOUS TRACING : 03/26/2017 19.32 DOCTOR: Dru Torres Interpretating Date/Time 03/27/2017 12:06:52
--- NOTE | 2017-03-27 12:46 | ECHRPT ---
Indication: CONCLUSIONS Doppler parameters are consistent with impaired left ventricular relaxtion (grade 1 diastolic dysfun ction). Normal left ventricular size. Wall thickness is measured at the upper limits of normal. No regional wall motion abnormalities are present. A prominent chiari network is observed in the right atrial cavity (benign finding). Mild thickening of the mitral valve leaflets. Trace mitral valve regurgitation. Probable normal appearing aortic valve bioprosthesis. Aortic valve mean gradient is 22mmHg. There is trace tricuspid valve regurgitation. The estimated pulmonary arterial pressure is 27 mmHg. BP: / HR: Rhythm: Sinus MEASUREMENTS (Male / Female) Normal Values Technical Quality:Adequate 2D ECHO LV Diastolic Diameter PLAX 4.1 cm 4.2 - 5.9 / 3.9 - 5.3 cm LV Systolic Diameter PLAX 2.7 cm IVS Diastolic Thickness 1.2 cm 0.6 - 1.0 / 0.6 - 0.9 cm LVPW Diastolic Thickness 1.2 cm 0.6 - 1.0 / 0.6 - 0.9 cm LV Relative Wall Thickness 0.6 RV Internal Dim ED PLAX 3.0 cm LVOT Diameter 1.9 cm LA Systolic Diameter LX 4.0 cm 3.0 - 4.0 / 2.7 - 3.8 cm LV Ejection Fraction MOD 4C 74.2 % LV Ejection Fraction 4C AL 74.5 % M-MODE Aortic Root Diameter MM 2.8 cm AV Cusp Separation MM 1.5 cm DOPPLER AV Peak Velocity 330.5 cm/s AV Peak Gradient 43.7 mmHg AV Mean Gradient 20.5 mmHg AV Velocity Time Integral 59.3 cm LVOT Peak Velocity 122.0 cm/s LVOT Peak Gradient 6.0 mmHg LVOT Velocity Time Integral 29.2 cm AV Area Cont Eq vti 1.4 cm AV Area Cont Eq pk 1.0 cm MV Peak Velocity 88.2 cm/s MV Peak Gradient 3.1 mmHg MV Mean Velocity 47.6 cm/s MV Mean Gradient 1.0 mmHg MV Area PHT 2.2 cm Mitral E Point Velocity 68.1 cm/s Mitral A Point Velocity 81.9 cm/s Mitral E to A Ratio 0.8 LV E' Lateral Velocity 7.8 cm/s Mitral E to LV E' Lateral Ratio 8.7 LV E' Septal Velocity 6.3 cm/s Mitral E to LV E' Septal Ratio 10.7 TR Peak Velocity 204.0 cm/s TR Peak Gradient 16.6 mmHg Right Atrial Pressure 10.0 mmHg Pulmonary Artery Systolic Pressu 26.6 mmHg Right Ventricular Systolic Press 26.6 mmHg PV Peak Velocity 97.7 cm/s PV Peak Gradient 3.8 mmHg FINDINGS LEFT VENTRICLE Doppler parameters are consistent with impaired left ventricular relaxtion (grade 1 diastolic dysfun ction). The left ventricular systolic function is normal with an estimated ejection fraction in the range of 60-65%. Normal left ventricular size. Wall thickness is measured at the upper limits of normal. No regional wall motion abnormalities are present. RIGHT VENTRICLE Normal right ventricular size and systolic function. LEFT ATRIUM The left atrial size is normal. RIGHT ATRIUM A prominent chiari network is observed in the right atrial cavity (benign finding). ATRIAL SEPTUM Normal atrial septal thickness without atrial level shunting by limited color doppler interrogation. AORTA The aortic root and proximal ascending aorta are normal in size on limited imaging. MITRAL VALVE Mild thickening of the mitral valve leaflets. Trace mitral valve regurgitation. AORTIC VALVE Probable normal appearing aortic valve bioprosthesis. Aortic valve mean gradient is 22mmHg. TRICUSPID VALVE There is trace tricuspid valve regurgitation. The estimated pulmonary arterial pressure is 27 mmHg. PULMONARY VALVE No pulmonary valve regurgitation or stenosis. VESSELS The inferior vena cava is normal in size. PERICARDIUM No pericardial effusion. Dru Torres MD (Electronically Signed) Final Date:27 March 2017 12:45
[2017-03-28] VITALS (29 sets, daily range): BP systolic 111–129; BP diastolic 69–76; PULSE 56–88; RESP 16–18; TEMP 97.9–99; O2SAT 94–96
[2017-03-28] MEDS: RESP: ALBUTEROL 2.5 MG/IPRATROPIUM 0.5 MG NEB (SCH) NEB ×4 (03:35→20:32)
[2017-03-28] MEDS: CHLORHEXIDINE GLUCONATE 2 % 1 PACK (2 CLOTHS) TOP SCH (04:00)
[2017-03-28] MEDS: LEVOTHYROXINE SODIUM 150 MCG TAB PO SCH (06:22)
[2017-03-28] MEDS: METOPROLOL TARTRATE 25 MG TAB PO SCH ×2 (07:31→21:44)
[2017-03-28] MEDS: predniSONE 20 MG TAB PO SCH (09:23)
[2017-03-28] MEDS: DOCUSATE SODIUM 50 MG/SENNA 8.6 MG TAB PO SCH ×2 (09:23→21:43)
[2017-03-28] MEDS: MORPHINE SULFATE 60 MG CONTROLLED RELEASE TAB PO SCH ×2 (09:23→21:18)
[2017-03-28] MEDS: amLODIPine BESYLATE 5 MG TAB PO SCH (09:23)
[2017-03-28] MEDS: HEPARIN SODIUM - SQ 10,000 UNITS/ML VIAL SQ SCH ×2 (09:23→21:43)
[2017-03-28] MEDS: SODIUM CHLORIDE 0.9% FLUSH 10 ML FLUSH IV FLUSH SCH ×2 (09:24→21:44)
[2017-03-28] MEDS: PANTOPRAZOLE SOD 40 MG DELAYED RELEASE TAB PO SCH (09:35)
[2017-03-28] MEDS ORDERED: INFLUENZA VIRUS VACCINE (QUADRIVALENT) 0.5 ML SYR IM ONE (10:00)
[2017-03-28] MEDS ORDERED: PNEUMOCOCCAL POLYVALENT INJ 25 MCG/0.5 ML SYR IM ONE (10:00)
--- NOTE | 2017-03-28 10:57 | PD.VS.PN ---
Subjective Subjective/Hospital Course No chest pain except once momentarily last night. No distress. Feels well this morning. Vladimir diet. Objective Vitals/I&O Date Time Temp Pulse Resp B/P (MAP) Pulse Ox O2 Delivery O2 Flow Rate FiO2 03/28/17 10:03 66 03/28/17 09:30 94 03/28/17 09:00 64 03/28/17 08:01 98.4 61 16 129/72 (91) 95 03/28/17 08:00 61 03/28/17 07:00 56 03/28/17 06:00 60 03/28/17 05:06 66 03/28/17 04:00 98.2 57 18 121/76 (91) 96 03/28/17 04:00 60 03/28/17 03:00 60 03/28/17 02:00 59 03/28/17 01:00 60 03/28/17 00:00 97.9 88 18 111/69 (83) 96 03/28/17 00:00 59 03/27/17 23:00 66 03/27/17 22:00 60 03/27/17 21:00 64 03/27/17 20:00 77 03/27/17 19:55 98.0 74 18 102/70 (81) 96 03/27/17 19:53 94 21 03/27/17 19:00 74 03/27/17 17:00 78 03/27/17 16:23 100/70 (80) 03/27/17 15:00 98.7 72 16 105/65 (78) 94 03/27/17 15:00 72 03/27/17 12:01 96 21 03/27/17 11:00 98.5 74 16 100/66 (77) 96 03/28/17 03/28/17 03/28/17 07:00 15:00 23:00 Intake Total 240 ml Output Total 800 ml Balance -560 ml Physical Exam no chest or abdominal tenderness. Looks well overall. Imaging Last 48 hours Impressions Aorta CTA 03/26/17 1414 Signed Impressions: Service Date/Time: Sunday, March 26, 2017 16:05 - CONCLUSION: Dissection descending aorta beginning at the level of the left subclavian with mildly symmetrical flow in both true and false lumen to the level of the superior mesenteric artery. The celiac lower artery splits both lumens. There is symmetrical flow to both kidneys and the SMA. This is only slightly worsened compared to the CT scan of 08/29/2016. Findings were discussed with Dr. Crawford on today's date. Oscar Bynum MD FACR Chest X-Ray 03/26/17 1334 Signed Impressions: Service Date/Time: Sunday, March 26, 2017 13:54 - CONCLUSION: No acute disease. Oziel Almanzar Jr., MD Assessment and Plan Assessment: (1) Aortic dissection Status: Chronic Plan 1. I suspect his chronic descending component of the aortic dissection is stable and needs only BP management (goal SBP 110-130) and outpatient f/u. 2. Hold on CTA given mild creatinine elevation yesterday - will recheck tomorrow and then get repeat CTA if stable/better. 3. Continue medical management of other comorbidities. Tushar Menard MD [facility] [employer] industrial truck mechanic [facility] - Heart and Vascular Surgery at [facility] [phone] Problem Qualifiers (1) Aortic dissection: Qualified Codes: I71.03 - Dissection of thoracoabdominal aorta Tushar Menard MD Mar 28, 2017 10:57
--- NOTE | 2017-03-28 13:20 | HHI.PR ---
Subjective Remarks states felt sob earlier today as per RN requesting a nebulizer. Patient would like to have a nebulizer machine at home denies cp/sob Objective Vitals Vital Signs Date Time Temp Pulse Resp B/P (MAP) Pulse Ox O2 Delivery O2 Flow Rate FiO2 03/28/17 12:17 66 03/28/17 11:17 64 03/28/17 11:00 98.3 65 18 129/73 (91) 96 03/28/17 10:03 66 03/28/17 09:30 94 03/28/17 09:00 64 03/28/17 08:01 98.4 61 16 129/72 (91) 95 03/28/17 08:00 61 03/28/17 07:00 56 03/28/17 06:00 60 03/28/17 05:06 66 03/28/17 04:00 98.2 57 18 121/76 (91) 96 03/28/17 04:00 60 03/28/17 03:00 60 03/28/17 02:00 59 03/28/17 01:00 60 03/28/17 00:00 97.9 88 18 111/69 (83) 96 03/28/17 00:00 59 03/27/17 23:00 66 03/27/17 22:00 60 03/27/17 21:00 64 03/27/17 20:00 77 03/27/17 19:55 98.0 74 18 102/70 (81) 96 03/27/17 19:53 94 21 03/27/17 19:00 74 03/27/17 17:00 78 03/27/17 16:23 100/70 (80) 03/27/17 15:00 98.7 72 16 105/65 (78) 94 03/27/17 15:00 72 I/O 03/27/17 03/27/17 03/27/17 03/28/17 03/28/17 03/28/17 07:00 15:00 23:00 07:00 15:00 23:00 Intake Total 2680 ml 875 ml 240 ml Output Total 650 ml 275 ml 800 ml Balance 2030 ml 600 ml -560 ml Intake Oral 960 ml 875 ml 240 ml IV Total 1720 ml Output Urine Total 650 ml 275 ml 800 ml # Bowel Movements 0 0 0 Result Diagram: 03/27/1731514/17 0316 Imaging Last Impressions Aorta CTA 03/26/17 1414 Signed Impressions: Service Date/Time: Sunday, March 26, 2017 16:05 - CONCLUSION: Dissection descending aorta beginning at the level of the left subclavian with mildly symmetrical flow in both true and false lumen to the level of the superior mesenteric artery. The celiac lower artery splits both lumens. There is symmetrical flow to both kidneys and the SMA. This is only slightly worsened compared to the CT scan of 08/29/2016. Findings were discussed with Dr. Crawford on today's date. Oscar Bynum MD FACR Chest X-Ray 03/26/17 1338 Signed Impressions: Service Date/Time: Sunday, March 26, 2017 13:54 - CONCLUSION: No acute disease. Oziel Almanzar Jr., MD Objective Remarks AAOx3 NAD Clear lungs BL, no rhonchi, wheezing or crackles. Medications and IVs Current Medications Medications (Trade) Dose Ordered Sig/Lloyd Route Start Time Stop Time Status Last Admin (Norvasc) 5 mg DAILY PO 03/27/17 09:00 03/28/17 09:23 (Oramorph Sr) 60 mg Q12H PO 03/26/17 21:00 03/28/17 09:23 (Duoneb Neb) 1 ampule Q6HR NEB NEB 03/26/17 22:00 03/28/17 09:30 (Albuterol Neb) 2.5 mg Q2HR NEB PRN NEB 03/26/17 19:15 (NS Flush) 2 ml UNSCH PRN IV FLUSH 03/26/17 19:15 (NS Flush) 2 ml BID IV FLUSH 03/26/17 21:00 03/28/17 09:24 (Tylenol) 650 mg Q6H PRN PO 03/26/17 19:15 (Protonix) 40 mg DAILY PO 03/27/17 09:00 03/28/17 09:35 (Zofran Inj) 4 mg Q6H PRN IV PUSH 03/26/17 19:15 03/26/17 22:59 Miscellaneous Information 1 Q361D XX 03/26/17 19:15 (Chlorhexidine 2% Cloth) 3 pack Taper DAILY@04 TOP 03/27/17 04:00 03/23/18 03:59 03/27/17 04:00 (Chlorhexidine 2% Cloth) 3 pack UNSCH PRN TOP 03/26/17 19:15 (Payton-Colace) 1 tab BID PO 03/26/17 21:00 03/28/17 09:23 (Milk Of Magnesia Liq) 30 ml Q12H PRN PO 03/26/17 19:15 (Senokot) 17.2 mg Q12H PRN PO 03/26/17 19:15 (Dulcolax Supp) 10 mg DAILY PRN RECTAL 03/26/17 19:15 (Lactulose Liq) 30 ml DAILY PRN PO 03/26/17 19:15 (Heparin Inj) 5,000 units Q12HR SQ 03/26/17 21:00 03/28/17 09:23 (Deltasone) 60 mg DAILY PO 03/27/17 09:00 03/31/17 09:01 03/28/17 09:23 (Synthroid) 150 mcg DAILY@0600 PO 03/27/17 07:00 03/28/17 06:22 (Trandate Inj) 10 mg Q4H PRN IV PUSH 03/27/17 07:45 (Lopressor) 12.5 mg Q12HR PO 03/27/17 09:00 03/28/17 07:31 (Pill Splitter) 1 ea UNSCH PRN OTHER 03/27/17 08:15 A/P Assessment and Plan Chronic pain Remote history of IV drug use Patient takes morphine 60 mg by mouth every 12 and oxycodone 30 mg by mouth every 6 hours. Was overly sedated and had transient hypotension after oxycodone 30 so discontinued. RESP: COPD with acute exacerbation Former smoker Received Solu-Medrol 125 mg IV in the emergency department and DuoNeb 3. Wheezing resolved and he states SOB is better. DuoNeb every 6 hours. Albuterol every 2 hours PRN. Continue prednisone for COPD exacerbation 60 mg by mouth daily for 5 days. 03/28 Patient with sob earlier. Continue Duoneb treatments and steroids. CV: Chronic Aortic dissection Atypical chest pain HTN Heart murmur Follow-up serial cardiac markers. 2-D echo pending DC Labetalol drip. Target systolic blood pressure <120-130 Resumed on Norvasc, continue PRN IV Labetalol Vascular Dr. is following. Repeat CT angiogram in 48 hours Start low dose beta ruben metoprolol 12.5 mg po BID with holding parameters 03/28 2-D echocardiogram showed Doppler parameters consistent with diastolic dysfunction grade 1. Normal left ventricle size, normal-appearing aortic valve bioprosthesis. A prominent Chiari network in the right atrial cavity which is reported as a benign finding. Repeat CTA held by vascular due to slight rise in creatinine. GI: Hepatitis C Heart healthy diet. FEN/RENAL: Monitor I/O. ID: Monitor for signs and symptoms of infection. HEME: No acute hematologic issues. ENDO: History of thyroid cancer status post thyroidectomy Hypothyroidism On Synthroid 150 g by mouth daily. TSH 27.2 Noncompliant with Synthroid at that time. PROPH: Heparin 5000 subcut for DVT prophylaxis (cleared by feezor). Protonix 40 mg po daily for stress ulcer prophylaxis. ACCESS: Peripheral IV providing adequate access at this time. Gordo Nielsen MD Mar 28, 2017 13:20
[2017-03-28] MEDS ORDERED: RESP: ALBUTEROL 2.5 MG/IPRATROPIUM 0.5 MG NEB (PRN) NEB (23:00)
[2017-03-29] VITALS (17 sets, daily range): BP systolic 130–140; BP diastolic 72–87; PULSE 59–87; RESP 16–18; TEMP 98–98.7; O2SAT 93–97
[2017-03-29] MEDS: CHLORHEXIDINE GLUCONATE 2 % 1 PACK (2 CLOTHS) TOP SCH (04:00)
[2017-03-29 06:03] LABS: BICARBONATE 23.4 MEQ/L (21.0-32.0)
[2017-03-29] MEDS: LEVOTHYROXINE SODIUM 150 MCG TAB PO SCH (06:16)
[2017-03-29] MEDS: RESP: ALBUTEROL 2.5 MG/IPRATROPIUM 0.5 MG NEB (SCH) NEB ×3 (06:50→16:00)
--- NOTE | 2017-03-29 07:21 | PD.VS.PN ---
Subjective Subjective/Hospital Course No chest pain except once momentarily last night about 7p. Sharp and LEFT sided. Feels well this morning. Vladimir diet. TTE reviewed. Objective Vitals/I&O Date Time Temp Pulse Resp B/P (MAP) Pulse Ox O2 Delivery O2 Flow Rate FiO2 03/29/17 05:00 64 03/29/17 04:04 98.7 64 18 134/72 (92) 95 03/29/17 04:03 59 03/29/17 04:00 64 03/29/17 03:00 60 03/29/17 02:02 60 03/29/17 01:00 59 03/29/17 00:00 70 03/29/17 00:00 98.7 70 18 130/72 (91) 93 03/28/17 23:00 72 03/28/17 22:00 72 03/28/17 21:00 70 03/28/17 20:33 95 21 03/28/17 20:00 99.0 73 18 128/76 (93) 95 03/28/17 20:00 73 03/28/17 19:00 73 03/28/17 18:11 68 03/28/17 17:09 71 03/28/17 16:04 76 03/28/17 15:02 71 03/28/17 15:00 98.5 72 18 127/75 (92) 96 03/28/17 14:10 70 03/28/17 13:00 65 03/28/17 12:17 66 03/28/17 11:17 64 03/28/17 11:00 98.3 65 18 129/73 (91) 96 03/28/17 10:03 66 03/28/17 09:30 94 03/28/17 09:00 64 03/28/17 08:01 98.4 61 16 129/72 (91) 95 03/28/17 08:00 61 03/29/17 03/29/17 03/29/17 07:00 15:00 23:00 Intake Total 240 ml Output Total 700 ml Balance -460 ml Physical Exam no distress. Neuro intact. Laboratory Laboratory Tests Test 03/29/17 04:50 Blood Urea Nitrogen 16 Creatinine 1.09 Random Glucose 89 Calcium Level 8.6 Sodium Level 138 Potassium Level 4.0 Chloride Level 105 Carbon Dioxide Level 23.4 Anion Gap 10 Estimat Glomerular Filtration Rate 69 Assessment and Plan Assessment: (1) Aortic dissection Status: Chronic Plan 1. I suspect his chronic descending component of the aortic dissection is stable and needs only BP management (goal SBP 110-130) and outpatient f/u. 2. CTA today 3. D/C ok from my standpoint if CT stable and I review. 4. Will arrange f/u in 6m with CTA in my clinic. 5. Patient aware of plan and agrees. Tushar Menard MD [facility] [employer] practice or student teacher [facility] - Heart and Vascular Surgery at [facility] [phone] Problem Qualifiers (1) Aortic dissection: Qualified Codes: I71.03 - Dissection of thoracoabdominal aorta Tushar Menard MD Mar 29, 2017 07:21
[2017-03-29] MEDS ORDERED: IOHEXOL 350 MG/ML 10 ML VIAL (for RAD DIAG) IVCONTRAST ONE (08:56)
[2017-03-29] MEDS: METOPROLOL TARTRATE 25 MG TAB PO SCH (09:00)
--- NOTE | 2017-03-29 09:29 | RADRPT ---
EXAM DATE/TIME: 03/29/2017 08:32 [place] COMPARISON: CT PULMONARY ANGIOGRAM, August 29, 2016, 2:14. CTA THORACIC ABDOMINAL AORTA W 3D RECON, March 26, 017, 16:05. INDICATIONS : Follow up dissection. IV CONTRAST: 70 cc Omnipaque 350 (iohexol) IV RADIATION DOSE: 9.55 CTDIvol (mGy) MEDICAL HISTORY : Cardiovascular disease. Hypertension. Chronic obstructive pulmonary disease.Hepatits C SURGICAL HISTORY : CABG ENCOUNTER: Initial ACUITY: 1 day PAIN SCALE: 0/10 LOCATION: Bilateral chest TECHNIQUE: Volumetric scanning was performed using a multi-row detector CT scanner. The data was post processed with a variety of visualization algorithms including full volume maximum intensity projection, multi -planar sliding thin slab reformation, curved planar reformation, and surface rendering techniques. Using automated exposure control and adjustment of the mA and/or kV according to patient size, radiat ion dose was kept as low as reasonably achievable to obtain optimal diagnostic quality images. DICOM format image data is available electronically for review and comparison. FINDINGS: No significant change. Again seen is a Alexis type A aortic dissection that begins just proximal to the brachiocephalic artery origin and courses inferiorly terminating just cephalad to the renal cari ry origins. The dissection flap is fenestrated. There is a large fenestration at the aortic arch and a smaller fenestration appreciated at the origin of the celiac. The dissection flap does extend sligh tly into the origin of the right subclavian, left common carotid, and left subclavian arteries. Withi n this portion of the dissection flap there is equal opacification of the true and false lumens. The descending component of the dissection flap shows asymmetric opacification with the false lumen opaci fy and to a lesser degree than the true lumen. The true lumen is compressed by 50-60% by the false giacomo men. There is variant anatomy at the celiac origin with a separate origin of the left gastric artery. The origin of the celiac and left gastric is at the fenestration. The SMA arises from the true lumen as do both renal arteries. I appreciate no extension of the dissection flap into the mesenteric vess els or renal vessels. A there is a linear area of scarring involving the subpleural aspects of the right lower lobe. This i s stable. No acute infiltrate or effusion. The heart is normal in size and shape. No pericardial effu yung. Prosthetic aortic valve. Pulmonary arteries are normal in caliber. No adenopathy. CONCLUSION: No change in the appearance of a Dalton type A aortic dissection as detailed in the above discussio n. This dissection flap is fenestrated particularly at the arch level. There is good opacification of the true and false lumens at the arch level despite the dissection extending into the arch vessels. The descending component terminates at the level of the renal artery origins with a fenestration at t he origin of the celiac/left gastric arteries. Oziel Almanzar Jr., MD on March 29, 2017 at 9:00 Board Certified Radiologist. This report was verified electronically.
[2017-03-29] MEDS: PANTOPRAZOLE SOD 40 MG DELAYED RELEASE TAB PO SCH (09:31)
[2017-03-29] MEDS: predniSONE 20 MG TAB PO SCH (09:31)
[2017-03-29] MEDS: DOCUSATE SODIUM 50 MG/SENNA 8.6 MG TAB PO SCH (09:31)
[2017-03-29] MEDS: amLODIPine BESYLATE 5 MG TAB PO SCH (09:32)
[2017-03-29] MEDS: MORPHINE SULFATE 60 MG CONTROLLED RELEASE TAB PO SCH (09:32)
[2017-03-29] MEDS: HEPARIN SODIUM - SQ 10,000 UNITS/ML VIAL SQ SCH (09:32)
[2017-03-29] MEDS: SODIUM CHLORIDE 0.9% FLUSH 10 ML FLUSH IV FLUSH SCH (09:33)
[2017-03-29] MEDS ORDERED: NEBULIZER1 MI1 (13:21)
[2017-03-29] MEDS ORDERED: IPRASOL INH (13:21)
[2017-03-29] MEDS ORDERED: AMLO5 PO (13:21)
[2017-03-29] MEDS ORDERED: SALM50I INH (13:21)
[2017-03-29] MEDS ORDERED: METO25TA3 PO (13:21)
[2017-03-29] MEDS ORDERED: INSPIREASE DRUG1 EA (13:21)
--- NOTE | 2017-03-29 13:22 | HHI.DCPOC ---
Discharge Care Plan Diagnosis: (1) Acute exacerbation of chronic obstructive pulmonary disease (COPD) (2) Tobacco abuse (3) Aortic dissection (4) History of left below knee amputation (5) Hx of hepatitis C (6) Non compliance w medication regimen (7) Chronic thoracic aortic dissection (8) Hx of thyroid cancer (9) HTN (hypertension) (10) Hypothyroidism (11) Chronic pain Goals to Promote Your Health * To prevent worsening of your condition and complications * To maintain your health at the optimal level Directions to Meet Your Goals Take your medications as prescribed Follow your dietary instruction Follow activity as directed Keep your appointments as scheduled Take your immunizations and boosters as scheduled If your symptoms worsen call your PCP, if no PCP go to Urgent Care Center or Emergency Room Smoking is Dangerous to Your Health. Avoid second hand smoke Call the 24-hour hour crisis hotline for domestic abuse at Gordo Nielsen MD Mar 29, 2017 13:22
--- NOTE | 2017-03-29 13:42 | HHI.DS ---
Discharge Summary Admission Date Mar 26, 2017 at 18:10 Discharge Date: Mar 29, 2017 Admitting Diagnosis Aortic dissection Brief History - From Admission 61-year-old male with past medical history of hypertension, COPD, hepatitis C, prior Type A aortic dissection in 2013 status post repair at [facility] who presents to [facility] today complaining of sharp episodic left sided chest pain. He states that the very first episode was 2-3 weeks ago and he has had 2 additional episode on consecutive nights (last night and the night before) . He has not had any pain tonight. He states that each episode felt like "a sharp razor blade" on his lateral chest wall at anterior to mid axillary line and lasted for "no more than 3 seconds" and was completely resolved in between. Occurred while he was sitting in a chair watching TV. The last 2 episodes were associated with palpitations. He also states that he has had SOB and wheezing over the last 3 days and has been using his nebulizers without complete relief. No pleuritic pain or hemoptysis. He has had a cough today without sputum production. No fever/chills, nausea, vomiting or diaphoresis. He has chronic leg and lower abdomen pain. He states that he sought medical treatment because he knows he has an aortic dissection and was concerned this may be the etiology even though the quality of the pain is much different. CT chest was performed and demonstrated dissection of the descending aorta L subclavian to SMA. SMA and renals are perfused. He had prior imaging 08/29/16 with similar findings. He has been evaluated by Dr. Campbell and it is felt that pain is unlikely related to chronic dissection but will target SBP 110-120 and obtain repeat scan in 48 hours to assess stability. He was also wheezing with COPD exacerbation on arrival to ED and is now improved following Duoneb x3. CBC/BMP: 03/27/17 0316 03/29/17 0450 Significant Findings Laboratory Tests Test 03/26/17 14:24 03/26/17 19:40 03/27/17 03:16 03/27/17 05:01 Neutrophils (%) (Auto) 71.8 % (16.0-70.0) 88.5 % (16.0-70.0) Random Glucose 69 MG/DL (74-106) 118 MG/DL (74-106) Aspartate Amino Transf (AST/SGOT) 54 U/L (15-37) Estimat Glomerular Filtration Rate 75 ML/MIN (>89) 58 ML/MIN (>89) Creatine Kinase MB 4.6 NG/ML (0.5-3.6) Troponin I LESS THAN 0.02 NG/ML LESS THAN 0.02 NG/ML LESS THAN 0.02 NG/ML Thyroid Stimulating Hormone 3rd Gen 27.200 uIU/ML (0.358-3.740) Lymphocytes (%) (Auto) 8.8 % (9.0-44.0) Neutrophils # (Auto) 8.5 TH/MM3 (1.8-7.7) Lymphocytes # (Auto) 0.8 TH/MM3 (1.0-4.8) Test 03/27/17 10:01 03/29/17 04:50 Troponin I LESS THAN 0.02 NG/ML Estimat Glomerular Filtration Rate 69 ML/MIN (>89) Imaging Last Impressions Aorta CTA 03/29/17 0000 Signed Impressions: Service Date/Time: Wednesday, March 29, 2017 08:32 - CONCLUSION: No change in the appearance of a Alexis type A aortic dissection as detailed in the above discussion. This dissection flap is fenestrated particularly at the arch level. There is good opacification of the true and false lumens at the arch level despite the dissection extending into the arch vessels. The descending component terminates at the level of the renal artery origins with a fenestration at the origin of the celiac/left gastric arteries. Oziel Almanzar Jr., MD Chest X-Ray 03/26/17 1338 Signed Impressions: Service Date/Time: Sunday, March 26, 2017 13:54 - CONCLUSION: No acute disease. Oziel Almanzar Jr., MD PE at Discharge AAOx3 NAD Clear lungs BL, no rhonchi, wheezing or crackles. Pt update on day of discharge Denies cp/sob. requesting nebulizer machine prior to going home. Repeat CTA of the chest doesn't show any change on the aortic dissection. As per RN, Dr campbell told her that the patient is cleared to be discharged. Hospital Course The patient was admitted to the intensive care unit and managed initially by the senior hydrogeologist. Patient was started on IV Solu-Medrol and DuoNeb's for his COPD exacerbation. Patient was started on labetalol drip without target systolic blood pressure less than 120- 130. The patient's antihypertensive medications including Norvasc were resumed. Vascular surgery consulted, recommended optimal medical management with tight blood pressure control and repeat a CT angiogram in 48 hours. Patient was started on low-dose beta ruben with metoprolol 12.5 mg by mouth twice a day with holding parameters.2- D echocardiogram showed Doppler parameters consistent with diastolic dysfunction grade 1. Normal left ventricle size, normal-appearing aortic valve bioprosthesis. A prominent Chiari network in the right atrial cavity which is reported as a benign finding. Patient's Synthroid was continued for hypothyroidism. TSH was found to be 27.2 however the patient has been noncompliant with Synthroid. The level of TSH should be rechecked in 4-6 weeks after discharge. Patient's blood pressure was also monitored and controlled strictly to target a systolic blood pressure less than 130. For patient's history of chronic pain, morphine 60 mg by mouth every 12 hours and oxycodone 30 mg by mouth every 6 hours. The patient however became overly sedated with this, and medications and oxycodone 30 was discontinued. The patient is not complaining of any pain or he does not look in severe pain at the moment of discharge. The patient will be discharged on home medicationsfor pain control. Pt Condition on Discharge: Stable Discharge Time: > 30 minutes Discharge Instructions Follow up Referrals: Speech Therapy Vascular Surgery @ Vascular Surgery with Tushar Campbell MD New Medications: Ipratropium-Albuterol Neb (Duoneb) 0.5-2.5 Mg/3 Ml Neb 1 NEBULE INH Q4HR NEB PRN for SOB/WHEEZING, #180 NEBULE 0 Refills Nebulizer (Nebulizer) 1 Mis Mis EA .ROUTE DIRECTED for Breathing Treatment, #1 0 Refills Salmeterol Inh (Serevent Diskus Inh) 50 Mcg/Act Aero 50 MCG INH BID for Shortness of Breath, #1 INHALER 0 Refills Spacer/Device For Mdi (Inspirease Drug Delivery) 1 Ea Mis EA .ROUTE DIRECTED, #1 0 Refills Metoprolol Tartrate (Metoprolol Tartrate) 25 Mg Tab 12.5 MG PO Q12HR for Blood Pressure Management, #62 TAB Continued Medications: Albuterol 18 GM Inh (Ventolin Hfa 18 GM Inh) 90 Mcg/Act Aer 2 PUFF INH Q4H PRN for SHORTNESS OF BREATH, #1 INHALER 0 Refills Amlodipine (Norvasc) 5 Mg Tab 5 MG PO DAILY for Blood Pressure Management, #30 TAB 1 Refill (This prescription has been renewed) Fluticasone Nasal [place] (Fluticasone Nasal [place]) 50 Mcg/Act Naspr 2 SPRAY EACH NARE DAILY for ALLERGIES, #1 BOTTLE 0 Refills Levothyroxine (Levothyroxine) 150 Mcg Tab 150 MCG PO DAILY for Thyroid, #30 TAB 0 Refills Morphine Sulfate CR (Morphine Sulfate CR) 60 Mg Tab 60 MG PO q12 Oxycodone (Oxycodone) 30 Mg Tab 30 MG PO Q6HR for Pain Management, TAB 0 Refills Gordo Nielsen MD Mar 29, 2017 13:42
== END 2017-03-29 17:19 | disposition home or self-care (01) | DRG 190 ==
LOC: NEPC 13:31 → NEDA 18:10 → HCVI 21:15 → HCPC 03-27 15:52
PROVIDERS: ADMIT Hospitalist; ATTEND Hospitalist
DX: J44.1 Chronic obstructive pulmonary disease with (acute) exacerbation (principal); I71.01 Dissection of thoracic aorta; G89.29 Other chronic pain; E89.0 Postprocedural hypothyroidism; I10 Essential (primary) hypertension; B19.20 Unspecified viral hepatitis C without hepatic coma; R01.1 Cardiac murmur, unspecified; I95.2 Hypotension due to drugs; T40.2X5A Adverse effect of other opioids, initial encounter; R10.30 Lower abdominal pain, unspecified; Z89.512 Acquired absence of left leg below knee; Z91.14 Patient's other noncompliance with medication regimen; Z95.2 Presence of prosthetic heart valve; Z95.1 Presence of aortocoronary bypass graft; Z85.850 Personal history of malignant neoplasm of thyroid; Z23 Encounter for immunization
CPT/HCPCS: 71020; 71275; 74174; 80048; 80053; 82550; 82552; 83735; 84100; 84443; 84484; 85025; 85610; 85730; 87641; 90686; 90732; 93005; 93306; 94640; 94664; 96374; J1644; J2270; J2405; J2930; J7040; J7512; Q2038; Q9967

== ENCOUNTER 2017-04-13 13:42 | Emergency (ER) | payer MEDICARE ==
[~2017-04-13] VITALS: Ht 177.8 cm; Wt 85.0 kg
[~2017-04-13 13:42] MED LIST changes: -BENZ100 PO; -CEFT500T3 PO; -CETI10 PO; +INSPIREASE DRUG1 EA; +IPRASOL INH; +METO25TA3 PO; +NEBULIZER1 MI1; -PRED20 PO; +SALM50I INH
[2017-04-13 13:43] VITALS: BP 172/114; PULSE 69; RESP 20; TEMP 97.5; O2SAT 97
--- NOTE | 2017-04-13 13:47 | PD ---
Physical Exam Date Seen by Provider: Apr 13, 2017 Time Seen by Provider: 13:45 Narrative 61-year-old white male presents to emergency department requesting evaluation treatment of dyspnea. He has a history of lung disease and has been out of his albuterol inhaler for 3 days. He states that he has prescriptions but he does not have any money to purchase some until the beginning of the month. History of COPD. Vital signs reviewed. Pt waiting for bed placement. Data Data Last Documented VS Vital Signs Date Time Temp Pulse Resp B/P (MAP) Pulse Ox O2 Delivery O2 Flow Rate FiO2 04/13/17 13:43 97.5 69 20 172/114 (133) 97 Room Air [facility] Medical Record Reviewed: No Supervised Visit with ANUJ: Chris Maguire Apr 13, 2017 13:47
[2017-04-13] MEDS ORDERED: ALBUTEROL SULFATE 90 MCG/ACT HFA 8 GM INHALER INH ONE (14:15)
[2017-04-13] MEDS ORDERED: methylPREDNISolone SOD SUCC 125 MG/2 ML VIAL IV PUSH ONE (14:15)
[2017-04-13] MEDS ORDERED: SODIUM CHLORIDE 0.9% FLUSH 10 ML FLUSH IVF PRN (14:15)
[2017-04-13] MEDS: RESP: ALBUTEROL 2.5 MG/IPRATROPIUM 0.5 MG NEB (SCH) INH ×2 (14:15→14:20)
[2017-04-13 14:20] VITALS: O2SAT 99
--- NOTE | 2017-04-13 14:26 | PD ---
HPI Chief Complaint: Respiratory Distress Time Seen by Provider: 14:05 Travel History International Travel<30 days: No Contact w/Intl Traveler<30days: No Traveled to known affect area: No History of Present Illness HPI Patient 61-year-old male presents to emergency room with complaints of shortness of breath. Patient reports that he used to be a past smoker, reports that he does have history of COPD. Patient reports that he has run out of his inhaler for the past 3 days and is unable to refill his prescription as he does not have enough funds into the beginning of the month of April. Patient reports that he has been coughing and has been wheezing and isn't short of breath for the past 3 days. Patient reports that symptoms are similar to when he has had 2 COPD exacerbations in the past. Patient denies any fevers or chills, denies any chest pain at this time. Patient with no other complaints. PFSH Past Medical History Cancer: Yes (THYROID) Cardiovascular Problems: Yes (aneurysm) Congestive Heart Failure: No COPD: Yes Coronary Artery Disease: Yes (anuerism) Diabetes: No Diminished Hearing: No Genitourinary: No Hepatitis: Yes (HEP-C) Hypertension: Yes Implanted Vascular Access Dvce: Yes Musculoskeletal: Yes Psychiatric: No Reproductive: No Respiratory: Yes (COPD) Thyroid Disease: Yes (THyiROID WAS REMOVED DUE TO CANCER) Past Surgical History Body Medical Devices: aortic valve replacement Coronary Artery Bypass Graft: Yes Endocrine Surgery: Yes (THYROIDECTOMY) Thoracic Surgery: Yes (open heart surgery "heart aneurysm") Other Surgery: Yes (THYROIDECTOMY, lymph node resection ) Social History Alcohol Use: Yes (occ) Tobacco Use: No Substance Use: Yes (PAST IVDA, QUIT YEARS AGO) Allergies-Medications (Allergen,Severity, Reaction): Coded Allergies: No Known Allergies (Verified , 03/26/17) Reported Meds & Prescriptions Reported Meds & Active Scripts Active Inspirease Drug Delivery (Spacer/Device For Mdi) 1 Ea Mis Ea .ROUTE DIRECTED Nebulizer 1 Mis Mis Ea .ROUTE DIRECTED Serevent Diskus Inh (Salmeterol Xinafoate) 50 Mcg/Act Aero 50 Mcg INH BID Duoneb (Ipratropium-Albuterol Neb) 0.5-2.5 Mg/3 Ml Neb 1 Nebule INH Q4HR NEB PRN Metoprolol Tartrate 25 Mg Tab 12.5 Mg PO Q12HR Norvasc (Amlodipine Besylate) 5 Mg Tab 5 Mg PO DAILY Ventolin Hfa 18 GM Inh (Albuterol Sulfate) 90 Mcg/Act Aer 2 Puff INH Q4H PRN Fluticasone Nasal [place] 50 Mcg/Act Naspr 2 [place] EACH NARE DAILY Reported Oxycodone (Oxycodone HCl) 30 Mg Tab 30 Mg PO Q6HR Morphine Sulfate CR (Morphine Sulfate) 60 Mg Tab 60 Mg PO Q12 Levothyroxine (Levothyroxine Sodium) 150 Mcg Tab 150 Mcg PO DAILY Review of Systems General / Constitutional: No: Fever, Chills Eyes: No: Visual changes HENT: No: Headaches Cardiovascular: No: Chest Pain or Discomfort, Palpitations, Irregular Rhythm, Tachycardia Respiratory: Positive: Cough, Shortness of Breath Gastrointestinal: No: Nausea, Vomiting, Diarrhea, Abdominal Pain Genitourinary: No: Urgency, Frequency, Dysuria Musculoskeletal: No: Pain Skin: No Rash Neurologic: No: Weakness Psychiatric: No: Depression Endocrine: No: Polydipsia Hematologic/Lymphatic: No: Easy Bruising Physical Exam Narrative GENERAL: Moderate distress SKIN: Focused skin assessment warm/dry. HEAD: Atraumatic. Normocephalic. EYES: Pupils equal and round. No scleral icterus. No injection or drainage. ENT: No nasal bleeding or discharge. Mucous membranes pink and moist. NECK: Trachea midline. No JVD. CARDIOVASCULAR: Regular rate and rhythm. No murmur appreciated. RESPIRATORY: No accessory muscle use. Patient with scattered wheezing diffusely throughout upper and lower lobes of the lungs GASTROINTESTINAL: Abdomen soft, non-tender, nondistended. Hepatic and splenic margins not palpable. MUSCULOSKELETAL: No obvious deformities. No clubbing. No cyanosis. No edema. NEUROLOGICAL: Awake and alert. No obvious cranial nerve deficits. Motor grossly within normal limits. Normal speech. PSYCHIATRIC: Appropriate mood and affect; insight and judgment normal. Data Data Last Documented VS Vital Signs Date Time Temp Pulse Resp B/P (MAP) Pulse Ox O2 Delivery O2 Flow Rate FiO2 04/13/17 16:05 72 16 153/83 (106) 100 Nasal Cannula 2.00 04/13/17 13:43 97.5 Orders Orders Complete Blood Count With Diff (04/13/17 14:07) Basic Metabolic Panel (Bmp) (04/13/17 14:07) Magnesium (Mg) (04/13/17 14:07) Influenzae A/B Antigen (04/13/17 14:07) Iv Access Insert/Monitor (04/13/17 14:07) Ecg Monitoring (04/13/17 14:07) Oximetry (04/13/17 14:07) Chest, Single Ap (04/13/17 14:07) Sodium Chloride 0.9% Flush (Ns Flush) (04/13/17 14:15) Methylprednisolone So Succ Inj (Solumedr (04/13/17 14:15) Albuterol-Ipratropium Neb (Duoneb Neb) (04/13/17 14:15) Magnesium Sulfate 1 Gm Premix (Magnesium (04/13/17 14:15) Albuterol Hfa Inh (Proair Hfa Inh) (04/13/17 14:15) Azithromycin (Zithromax) (04/13/17 16:15) Albuterol Neb (Albuterol Neb) (04/13/17 16:15) Labs Laboratory Tests Test 04/13/17 14:30 White Blood Count 7.1 TH/MM3 Red Blood Count 4.88 MIL/MM3 Hemoglobin 14.3 GM/DL Hematocrit 43.1 % Mean Corpuscular Volume 88.4 FL Mean Corpuscular Hemoglobin 29.3 PG Mean Corpuscular Hemoglobin Concent 33.1 % Red Cell Distribution Width 13.8 % Platelet Count 231 TH/MM3 Mean Platelet Volume 7.8 FL Neutrophils (%) (Auto) 62.0 % Lymphocytes (%) (Auto) 22.6 % Monocytes (%) (Auto) 5.4 % Eosinophils (%) (Auto) 8.8 % Basophils (%) (Auto) 1.2 % Neutrophils # (Auto) 4.4 TH/MM3 Lymphocytes # (Auto) 1.6 TH/MM3 Monocytes # (Auto) 0.4 TH/MM3 Eosinophils # (Auto) 0.6 TH/MM3 Basophils # (Auto) 0.1 TH/MM3 CBC Comment DIFF FINAL Differential Comment Blood Urea Nitrogen 15 MG/DL Creatinine 1.33 MG/DL Random Glucose 82 MG/DL Calcium Level 9.2 MG/DL Magnesium Level 2.2 MG/DL Sodium Level 138 MEQ/L Potassium Level 4.5 MEQ/L Chloride Level 102 MEQ/L Carbon Dioxide Level 29.9 MEQ/L Anion Gap 6 MEQ/L Estimat Glomerular Filtration Rate 55 ML/MIN MDM Medical Decision Making Medical Screen Exam Complete: Yes Emergency Medical Condition: Yes Medical Record Reviewed: Yes Interpretation(s) Vital Signs Date Time Temp Pulse Resp B/P (MAP) Pulse Ox O2 Delivery O2 Flow Rate FiO2 04/13/17 13:43 97.5 69 20 172/114 (133) 97 Room Air Differential Diagnosis COPD exacerbation, pneumonia, influenza Narrative Course Patient is a 61-year-old male who presents to emergency room with complaints of COPD exacerbation. Vital signs are stable at this time, pulse ox is 97% on room air. During the course of the patients emergency department visit, the patients history, examination, and differential diagnosis were reviewed with the patient. The patient was placed on a rn cardiac with oximetry and frequent blood pressure monitoring. The patient had 20 gauge IV access obtained and blood work sent for analysis. The patient was initially provided IV solumedrol as well as neb treatments and IV magnesium The patients laboratory studies were reviewed and remarkable for CBC & BMP Diagram 04/13/17 14:30 Calcium Level 9.2, Magnesium Level 2.2 Radiology studies were reviewed and remarkable for acute cardiopulmonary disease Patient feeling much better after nebs and IV steroids. He will be discharged with diagnosis of copd exacerbation. He will follow up with his pcp and will have him return to ER as needed Diagnosis Primary Impression: Acute exacerbation of chronic obstructive pulmonary disease (COPD) Patient Instructions: General Instructions Additional Instructions: Please provide patient with a copy of their lab work and studies at discharge* * Please follow up with your primary care doctor in 2-3 days Return to the ER if symptoms worsen or progress Return to the ER as needed Please take all medications as prescribed Med/Other Pt SpecificInfo: Prescription(s) given Scripts Prednisone (Prednisone) 20 Mg Tab 20 MG PO BID for 5 Days, #10 TAB 0 Refills Prov: Eloina Wheat DO 04/13/17 Albuterol 8.5 GM Inh (Proair Hfa 8.5 GM Inh) 90 Mcg/Act Aer 2 PUFF INH Q4-6H Y for SHORTNESS OF BREATH, #1 INHALER 0 Refills 108 mcg/actuation Prov: Eloina Wheat DO 04/13/17 Azithromycin (Azithromycin) 500 Mg Tab 500 MG PO DAILY for Infection, #5 TAB 0 Refills Prov: Eloina Wheat DO 04/13/17 Disposition: 01 DISCHARGE HOME Condition: Stable Eloina Wheat DO Apr 13, 2017 14:26
[2017-04-13 14:33] VITALS: RESP 27; O2SAT 98
[2017-04-13] MEDS: MAGNESIUM SULFATE 1 GM PREMIX 100 ML IV SCH ×2 (14:37→15:15)
[2017-04-13 15:01] LABS: AUTOMATED NEUTROPHIL # 4.4 TH/MM3 (1.8-7.7); BASOPHIL # 0.1 TH/MM3 (0-0.2); BASOPHIL % 1.2 % (0.0-2.0); EOSINOPHIL # 0.6 TH/MM3 (0-0.4); EOSINOPHIL % 8.8 % (0.0-4.0); HEMATOCRIT 43.1 % (39.0-51.0); HEMO FLAGS DIFF FINAL; LYMPH % 22.6 % (9.0-44.0); LYMPHOCYTE # 1.6 TH/MM3 (1.0-4.8); MEAN CELL VOLUME 88.4 FL (80.0-100.0); MEAN CORPUSCULAR HEMOGLOBIN 29.3 PG (27.0-34.0); MEAN CORPUSCULAR HGB CONC 33.1 % (32.0-36.0); MONO % 5.4 % (0.0-8.0); PLATELET COUNT 231 TH/MM3 (150-450); RED BLOOD COUNT 4.88 MIL/MM3 (4.50-5.90); RED CELL DISTRIBUTION WIDTH 13.8 % (11.6-17.2); WHITE BLOOD COUNT 7.1 TH/MM3 (4.0-11.0)
--- NOTE | 2017-04-13 15:08 | RADRPT ---
EXAM DATE/TIME: 04/13/2017 14:35 [facility] COMPARISON: CHEST PA & LAT, March 26, 2017, 13:54. CHEST SINGLE AP, August 28, 2016, 23:37. INDICATIONS : Short of breath. MEDICAL HISTORY : Chronic obstructive pulmonary disease. Hepatitis C. Cardiovascular disease. Hypertension. SURGICAL HISTORY : CABG. 2012. ENCOUNTER: Initial ACUITY: 1 day PAIN SCORE: 0/10 LOCATION: Bilateral chest FINDINGS: Median sternotomy wires are noted status post cardiac surgery. The heart and mediastinal structures are normal. The pulmonary vascular pattern is normal. The lungs are clear. CONCLUSION: No acute cardiopulmonary disease. Tushar Carty MD on April 13, 2017 at 15:02 Board Certified Radiologist. This report was verified electronically.
[2017-04-13 15:35] LABS: BICARBONATE 29.9 MEQ/L (21.0-32.0); MAGNESIUM 2.2 MG/DL (1.5-2.5); POTASSIUM 4.5 MEQ/L (3.5-5.1)
[2017-04-13 16:05] VITALS: BP 153/83; PULSE 72; RESP 16; O2SAT 100
[2017-04-13] MEDS ORDERED: RESP: ALBUTEROL 2.5 MG/3 ML NEB (SCH) INH ONE (16:15)
[2017-04-13] MEDS ORDERED: AZITHROMYCIN 250 MG TAB PO ONE (16:15)
[2017-04-13] MEDS ORDERED: ALBUAER3 INH (16:18)
[2017-04-13] MEDS ORDERED: PRED20 PO (16:18)
[2017-04-13] MEDS ORDERED: AZIT500T2 PO (16:18)
== END 2017-04-13 17:02 | disposition home or self-care (01) ==
LOC: NEPD 13:42
DX: J44.1 Chronic obstructive pulmonary disease with (acute) exacerbation (principal); I10 Essential (primary) hypertension; Z79.899 Other long term (current) drug therapy
CPT/HCPCS: 71010; 80048; 83735; 85025; 87804; 94640; 94664; 96365; 96375; 99284; J2930; J3475; J7613

== ENCOUNTER 2017-06-26 13:31 | Inpatient (IN) | payer MEDICARE ==
[~2017-06-26] VITALS: Ht 177.8 cm; Wt 84.0 kg
[2017-06-26] VITALS (8 sets, daily range): BP systolic 144–165; BP diastolic 94–106; PULSE 85–93; RESP 16–26; TEMP 98.8–99.4; O2SAT 94–98
[~2017-06-26 13:31] MED LIST changes: +ALBUAER3 INH; +AZIT500T2 PO; +PRED20 PO
[2017-06-26] MEDS: RESP: ALBUTEROL 2.5 MG/IPRATROPIUM 0.5 MG NEB (SCH) INH (13:53)
[2017-06-26] MEDS ORDERED: methylPREDNISolone SOD SUCC 125 MG/2 ML VIAL IV PUSH ONE (14:00)
[2017-06-26] MEDS ORDERED: oxyCODONE/ACETAMINOPHEN 5 MG/325 MG TAB PO ONE (14:00)
--- NOTE | 2017-06-26 14:55 | RADRPT ---
EXAM DATE/TIME: 06/26/2017 14:29 [facility] COMPARISON: CHEST SINGLE AP, April 13, 2017, 14:35. INDICATIONS : Shortness of breath and cough. MEDICAL HISTORY : Chronic obstructive pulmonary disease. Hypertension Hepatitis C. Cardiovascular disease. SURGICAL HISTORY : CABG. ENCOUNTER: Initial ACUITY: 3 days PAIN SCORE: 0/10 LOCATION: chest FINDINGS: A single view of the chest demonstrates the lungs to be symmetrically aerated without evidence of mas s, infiltrate or effusion. The cardiomediastinal contours are unremarkable. Osseous structures are intact. The patient is again noted status post median sternotomy. There is no perihilar edema. There are multiple overlying electrocardiogram leads. CONCLUSION: No acute disease. Wilfredo Dobson MD on June 26, 2017 at 14:52 Board Certified Radiologist. This report was verified electronically.
[2017-06-26] MEDS: SODIUM CHLORIDE 0.9% FLUSH 10 ML FLUSH IVF PRN ×2 (15:03→16:43)
[2017-06-26 15:55] LABS: AUTOMATED NEUTROPHIL # 4.9 TH/MM3 (1.8-7.7); BASOPHIL # 0.1 TH/MM3 (0-0.2); BASOPHIL % 0.8 % (0.0-2.0); EOSINOPHIL % 11.9 % (0.0-4.0); HEMOGLOBIN 14.7 GM/DL (13.0-17.0); LYMPH % 21.6 % (9.0-44.0); LYMPHOCYTE # 1.8 TH/MM3 (1.0-4.8); MEAN CELL VOLUME 86.1 FL (80.0-100.0); MEAN CORPUSCULAR HEMOGLOBIN 28.9 PG (27.0-34.0); MEAN CORPUSCULAR HGB CONC 33.5 % (32.0-36.0); MEAN PLATELET VOLUME 7.9 FL (7.0-11.0); MONO % 7.4 % (0.0-8.0); MONOCYTE # 0.6 TH/MM3 (0-0.9); NEUT % 58.3 % (16.0-70.0); PLATELET COUNT 280 TH/MM3 (150-450); RED CELL DISTRIBUTION WIDTH 13.2 % (11.6-17.2); WHITE BLOOD COUNT 8.3 TH/MM3 (4.0-11.0)
[2017-06-26 16:02] LABS: ALBUMIN 3.9 GM/DL (3.4-5.0); ALT (GPT) 34 U/L (12-78); AST (GOT) 28 U/L (15-37); BICARBONATE 27.9 MEQ/L (21.0-32.0); BLOOD UREA NITROGEN 8 MG/DL (7-18); CALCIUM 8.7 MG/DL (8.5-10.1); CHLORIDE 108 MEQ/L (98-107); CREATININE 1.17 MG/DL (0.60-1.30); GLOMERULAR FILTRATION RATE 63 ML/MIN (>89); GLUCOSE,RANDOM 91 MG/DL (74-106); SODIUM (NA) 144 MEQ/L (136-145)
[2017-06-26 16:05] LABS: ALKALINE PHOSPHATASE 109 U/L (45-117); TOTAL BILIRUBIN ADULT 0.7 MG/DL (0.2-1.0); TOTAL PROTEIN 7.8 GM/DL (6.4-8.2)
[2017-06-26] MEDS ORDERED: MORPHINE SULFATE 4 MG/ML INJ IV PUSH ONE (16:30)
[2017-06-26] MEDS ORDERED: SODIUM CHLOR 0.9% 1000 ML INJ 1,000 ML IV ONE (16:30)
[2017-06-26] MEDS ORDERED: IOHEXOL 350 MG/ML 10 ML VIAL (for RAD DIAG) IVCONTRAST ONE (17:00)
--- NOTE | 2017-06-26 17:10 | PD ---
HPI Chief Complaint: GI Complaint Time Seen by Provider: 13:42 Travel History International Travel<30 days: No Contact w/Intl Traveler<30days: No Traveled to known affect area: No History of Present Illness HPI Patient is a 61 year old male who comes in complaining of SOB, diarrhea and abdominal pain. He says the SOB started a few days ago and he tried using his albuterol, but it has not helped. He denies smoking, but says that friends smoke around him. He says he has been coughing, but denies fevers. He also complains of lower abdominal pain and diarrhea. He has been out of his morphine and oxycodone for 4 days, and feels like he is going through withdrawal. He has an appointment with pain management on Wednesday. He says his stool has been yellow in color. He denies nausea or vomiting. He has not taken anything for her symptoms. Nothing seems to make his symptoms better or worse. PFSH Past Medical History AAA: Yes (REPAIRED) Cancer: Yes (THYROID) Cardiovascular Problems: Yes High Cholesterol: Yes Congestive Heart Failure: No COPD: Yes Coronary Artery Disease: Yes Diabetes: No Diminished Hearing: No Genitourinary: No Hepatitis: Yes (HEP-C) Hypertension: Yes Implanted Vascular Access Dvce: Yes Musculoskeletal: Yes Psychiatric: No Reproductive: No Respiratory: Yes Thyroid Disease: Yes Ulcer: Yes Past Surgical History Body Medical Devices: aortic valve replacement Coronary Artery Bypass Graft: Yes (AAA REPAIR) Endocrine Surgery: Yes (THYROIDECTOMY/LYMPH NODES) Thoracic Surgery: Yes Tonsillectomy: Yes Other Surgery: Yes (THYROIDECTOMY, lymph node resection ) Social History Alcohol Use: Yes (OCCASSIONAL) Tobacco Use: No Substance Use: Yes (PAST IVDA, QUIT YEARS AGO) Allergies-Medications (Allergen,Severity, Reaction): Coded Allergies: No Known Allergies (Verified Adverse Reaction, Unknown, 06/26/17) Reported Meds & Prescriptions Reported Meds & Active Scripts Active Proair Hfa 8.5 GM Inh (Albuterol Sulfate) 90 Mcg/Act Aer 2 Puff INH Q4-6H PRN 108 mcg/actuation Metoprolol Tartrate 25 Mg Tab 12.5 Mg PO Q12HR Norvasc (Amlodipine Besylate) 5 Mg Tab 5 Mg PO DAILY Ventolin Hfa 18 GM Inh (Albuterol Sulfate) 90 Mcg/Act Aer 2 Puff INH Q4H PRN Reported Oxycodone (Oxycodone HCl) 30 Mg Tab 30 Mg PO Q6HR Morphine Sulfate CR (Morphine Sulfate) 60 Mg Tab 60 Mg PO Q12 Levothyroxine (Levothyroxine Sodium) 150 Mcg Tab 150 Mcg PO DAILY Review of Systems Except as stated in HPI: all other systems reviewed are Neg General / Constitutional: No: Fever, Chills HENT: No: Headaches, Lightheadedness Cardiovascular: No: Chest Pain or Discomfort Respiratory: Positive: Cough, Shortness of Breath, Wheezing Gastrointestinal: Positive: Diarrhea, Abdominal Pain, No: Nausea, Vomiting Genitourinary: No: Dysuria, Flank Pain Musculoskeletal: No: Myalgias, Edema Skin: No Rash, No Change in Pigmentation Neurologic: No: Weakness, Dizziness Physical Exam Narrative GENERAL: Awake and alert, in no acute distress. SKIN: Focused skin assessment warm/dry. HEAD: Atraumatic. Normocephalic. EYES: Pupils equal and round. No scleral icterus. ENT: Mucous membranes pink and moist. NECK: Trachea midline. No JVD. CARDIOVASCULAR: Regular rate and rhythm. No murmur appreciated. RESPIRATORY: No accessory muscle use. Diffuse wheezing and coarse breath sounds.. Breath sounds equal bilaterally. GASTROINTESTINAL: Abdomen soft, non-tender, nondistended. Tender to palpation across the lower abdomen. MUSCULOSKELETAL: No obvious deformities. No clubbing. No cyanosis. No edema. NEUROLOGICAL: Awake and alert. No obvious cranial nerve deficits. Motor grossly within normal limits. Normal speech. PSYCHIATRIC: Appropriate mood and affect; insight and judgment normal. Data Data Last Documented VS Vital Signs Date Time Temp Pulse Resp B/P (MAP) Pulse Ox O2 Delivery O2 Flow Rate FiO2 06/26/17 18:45 93 16 165/106 (125) 97 Nasal Cannula 2.00 06/26/17 14:24 99.4 Orders Orders Complete Blood Count With Diff (06/26/17 13:48) Comprehensive Metabolic Panel (06/26/17 13:48) Iv Access Insert/Monitor (06/26/17 13:48) Ecg Monitoring (06/26/17 13:48) Oximetry (06/26/17 13:48) Oxygen Administration (06/26/17 13:48) Chest, Single Ap (06/26/17 13:48) Sodium Chloride 0.9% Flush (Ns Flush) (06/26/17 14:00) Methylprednisolone So Succ Inj (Solumedr (06/26/17 14:00) Albuterol-Ipratropium Neb (Duoneb Neb) (06/26/17 14:00) Oxycodone-Acetamin 5-325 Mg (Percocet (06/26/17 14:00) Influenzae A/B Antigen (06/26/17 16:29) Ct Abd/Pel W Iv Contrast(Rout) (06/26/17 ) Urinalysis - C+S If Indicated (06/26/17 16:29) Sodium Chlor 0.9% 1000 Ml Inj (Ns 1000 M (06/26/17 16:30) Morphine Inj (Morphine Inj) (06/26/17 16:30) Electrocardiogram (06/26/17 14:10) Iohexol 350 Inj (Omnipaque 350 Inj) (06/26/17 17:00) Albuterol Neb (Albuterol Neb) (06/26/17 17:45) Magnesium Sulfate 1 Gm Premix (Magnesium (06/26/17 19:00) Admit Order (Ed Use Only) (06/26/17 ) Levofloxacin 750 Mg Premix Inj (Levaquin (06/26/17 20:00) Albuterol-Ipratropium Neb (Duoneb Neb) (06/26/17 20:00) Albuterol-Ipratropium Neb (Duoneb Neb) (06/26/17 19:15) Budeson-Formot 160-4.5 Mcg Inh (Symbicor (06/26/17 21:00) Methylprednisolone So Succ Inj (Solumedr (06/27/17 00:00) Place In Observation (06/26/17 ) Vital Signs (Adult) Q4H (06/26/17 19:04) Activity Oob Ad Lina (06/26/17 19:04) Intake + Output CALE.QSHIFT (06/26/17 19:04) Diet Regular Basic (06/27/17 Breakfast) Sodium Chlor 0.9% 1000 Ml Inj (Ns 1000 M (06/26/17 19:04) Sodium Chloride 0.9% Flush (Ns Flush) (06/26/17 19:15) Sodium Chloride 0.9% Flush (Ns Flush) (06/26/17 21:00) Ondansetron Inj (Zofran Inj) (06/26/17 19:15) Comprehensive Metabolic Panel (06/27/17 06:00) Complete Blood Count With Diff (06/27/17 06:00) Scd Bilateral/Knee High CALE.BID (06/26/17 19:04) Amos Bilateral/Knee High CALE.QSHIFT (06/26/17 19:07) Acetaminophen (Tylenol) (06/26/17 19:15) Acetamin-Hydrocod 325-5 Mg (Higbee 5-325 (06/26/17 19:15) Morphine Inj (Morphine Inj) (06/26/17 19:15) Docusate Sodium-Senna (Payton-Colace) (06/26/17 21:00) Magnesium Hydroxide Liq (Milk Of Magnesi (06/26/17 19:15) Sennosides (Senokot) (06/26/17 19:15) Bisacodyl Supp (Dulcolax Supp) (06/26/17 19:15) Lactulose Liq (Lactulose Liq) (06/26/17 19:15) Potassium Chloride (Kcl) (06/26/17 19:15) Labs Laboratory Tests Test 06/26/17 14:45 White Blood Count 8.3 TH/MM3 Red Blood Count 5.10 MIL/MM3 Hemoglobin 14.7 GM/DL Hematocrit 44.0 % Mean Corpuscular Volume 86.1 FL Mean Corpuscular Hemoglobin 28.9 PG Mean Corpuscular Hemoglobin Concent 33.5 % Red Cell Distribution Width 13.2 % Platelet Count 280 TH/MM3 Mean Platelet Volume 7.9 FL Neutrophils (%) (Auto) 58.3 % Lymphocytes (%) (Auto) 21.6 % Monocytes (%) (Auto) 7.4 % Eosinophils (%) (Auto) 11.9 % Basophils (%) (Auto) 0.8 % Neutrophils # (Auto) 4.9 TH/MM3 Lymphocytes # (Auto) 1.8 TH/MM3 Monocytes # (Auto) 0.6 TH/MM3 Eosinophils # (Auto) 1.0 TH/MM3 Basophils # (Auto) 0.1 TH/MM3 CBC Comment DIFF FINAL Differential Comment Blood Urea Nitrogen 8 MG/DL Creatinine 1.17 MG/DL Random Glucose 91 MG/DL Total Protein 7.8 GM/DL Albumin 3.9 GM/DL Calcium Level 8.7 MG/DL Alkaline Phosphatase 109 U/L Aspartate Amino Transf (AST/SGOT) 28 U/L Alanine Aminotransferase (ALT/SGPT) 34 U/L Total Bilirubin 0.7 MG/DL Sodium Level 144 MEQ/L Potassium Level 3.4 MEQ/L Chloride Level 108 MEQ/L Carbon Dioxide Level 27.9 MEQ/L Anion Gap 8 MEQ/L Estimat Glomerular Filtration Rate 63 ML/MIN MDM Medical Decision Making Medical Screen Exam Complete: Yes Emergency Medical Condition: Yes Medical Record Reviewed: Yes Interpretation(s) ECG shows normal sinus rhythm at 89, right bundle branch block Differential Diagnosis COPD exacerbation versus chronic pain versus opioid withdrawal versus colitis versus diverticulitis Narrative Course Patient is a 61 year old male who comes in complaining of SOB and withdrawal from opiates. Exam shows coarse breath sounds and wheezing. Given 3 duonebs, steroids. Given IVF, pain medicine. CXR shows no acute abnormalities. CT abd/pelvis shows no acute abnormalities. Patient is still wheezing despite treatment. Given additional albuterol. Will be placed in observation for further management. Diagnosis Primary Impression: Acute exacerbation of chronic obstructive pulmonary disease (COPD) Admitting Information Admitting Physician Requests: Observation Alondra Crawford MD Jun 26, 2017 17:10
--- NOTE | 2017-06-26 17:25 | RADRPT ---
EXAM DATE/TIME: 06/26/2017 16:58 [facility] COMPARISON: CTA THORACIC ABDOMINAL AORTA W 3D RECON, March 29, 2017, 8:32. INDICATIONS : Diarrhea and lower abdomen pain for four days. Known Alexis a type aortic dissection.. IV CONTRAST: 97 cc Omnipaque 350 (iohexol) IV ORAL CONTRAST: No oral contrast ingested. RADIATION DOSE: 6.67 CTDIvol (mGy) MEDICAL HISTORY : Aneurysm, abdominal. Hypertension. Hepatitis C. SURGICAL HISTORY : None. ENCOUNTER: Initial ACUITY: 4 - 6 days PAIN SCALE: 5/10 LOCATION: Bilateral lower quadrant TECHNIQUE: Volumetric scanning of the abdomen and pelvis was performed. Using automated exposure control and ad justment of the mA and/or kV according to patient size, radiation dose was kept as low as reasonably achievable to obtain optimal diagnostic quality images. DICOM format image data is available electro nically for review and comparison. FINDINGS: LOWER LUNGS: The visualized lower lungs are clear except for mild scarring in the right peripheral lung base. LIVER: Homogeneous density without lesion. There is no dilation of the biliary tree. No calcified gallston es. There is diffuse mild hepatic steatosis. The gallbladder is unremarkable. SPLEEN: Normal size without lesion. PANCREAS: Within normal limits. KIDNEYS: Normal in size and shape. There is no mass, stone or hydronephrosis. ADRENAL GLANDS: Within normal limits. VASCULAR: Inferior aspect of the Alexis type a known aortic dissection is again visualized. There is no aorti c aneurysm. BOWEL/MESENTERY: There are multiple loops of nondilated air-containing small bowel multiple small air-fluid levels. Th ere is no wall thickening or inflammatory change. There are scattered diverticuli in the colon. No or al contrast was given limiting the sensitivity of the exam. There is dilatation of the third portion of the duodenum measuring up to 4.6 cm with air-fluid level. The stomach is decompressed. ABDOMINAL WALL: Within normal limits. RETROPERITONEUM: There is no lymphadenopathy. BLADDER: No wall thickening or mass. REPRODUCTIVE: Within normal limits. INGUINAL: There is no lymphadenopathy or hernia. MUSCULOSKELETAL: Within normal limits for patient age. CONCLUSION: 1. Nonspecific, nonobstructive bowel gas pattern which may represent a mild ileus and or gastroenteri tis. The third portion the duodenum is dilated with air-fluid level. 2. The inferior portion of the known thoracic dissection is visualized. Wilfredo Dobson MD on June 26, 2017 at 17:18 Board Certified Radiologist. This report was verified electronically.
[2017-06-26] MEDS ORDERED: RESP: ALBUTEROL 2.5 MG/3 ML NEB (SCH) NEB ONE (17:45)
--- NOTE | 2017-06-26 19:10 | HHI.HP ---
HPI Service [facility] Primary Care Physician No Primary Care Physician Admission Diagnosis COPD exacerbation Diagnoses: (1) COPD (chronic obstructive pulmonary disease) Diagnosis: Principal (2) Gastroenteritis Diagnosis: Principal (3) Hypokalemia Diagnosis: Principal (4) Chronic pain Diagnosis: Principal (5) HTN (hypertension) Diagnosis: Principal Travel History International Travel<30 Days: No Contact w/Intl Traveler <30 Da: No Traveled to Known Affected Are: No History of Present Illness This is a 61-year-old male with PMH of HTN, Hyperlipidemia, CAD, COPD, Hepatitis C, h/o IVDU and Chronic Pain who presented to the ER w/ complaints of SOB in addition to abdominal pain and diarrhea. States symptoms started approx 4 days ago after running out of his home Morphine/Oxycodone. Has upcoming appt w/ Pain Management next week. States abdominal pain is cramping, intermittent, 8/10, non-radiating. Associated w/ diarrhea. Denies fever, chills, nausea or vomiting. SOB associated w/ wheezing, worse w/ exertion. used Albuterol at home w/ minimal improvement. On arrival, BP 163/103, HR 90, O2 sat 95% on RA, Temp 99.4. CBC unremarkable. Chemistry essentially unremarkable except for GFR 63. K+ 3.4. UA negative. CXR with no acute findings. CT Abd/Pelvis w/ nonspecific nonobstructive bowel gas pattern possibly ileus or gastroenteritis, thoracic dissection, chronic. S/p Solu-Medrol and DuoNeb in ER w/ some improvement. Review of Systems Except as stated in HPI: all other systems reviewed are Neg ROS: 14 point review of systems otherwise negative. Past Family Social History Past Medical History PMH: HTN, Hyperlipidemia, CAD, COPD, Hepatitis C, h/o IVDU and Chronic Pain Past Surgical History PAST SURGICAL HISTORY: AAA Repair, Thyroidectomy, Tonsillectomy, Lymph Node Resection, Aortic Valve Replacement Allergies: Coded Allergies: No Known Allergies (Verified Adverse Reaction, Unknown, 06/26/17) Family History PAST FAMILY HISTORY: Reviewed. No h/o DM or CAD Social History PAST SOCIAL HISTORY: Occasional alcohol. History of tobacco and IVDA. Physical Exam Vital Signs Vital Signs Date Time Temp Pulse Resp B/P (MAP) Pulse Ox O2 Delivery O2 Flow Rate FiO2 06/26/17 16:12 24 06/26/17 16:11 93 24 159/95 (116) 95 Room Air 06/26/17 15:00 90 26 144/96 (112) 95 Room Air 06/26/17 14:27 18 06/26/17 14:27 95 Nasal Cannula 2.00 06/26/17 14:27 95 Room Air 06/26/17 14:24 99.4 90 17 163/103 (123) 94 06/26/17 14:13 98.8 85 163/103 (123) Physical Exam PE: GENERAL: Pleasant middle-aged white male in no acute distress. HEENT: PERRLA, EOMI. No scleral icterus or conjunctival pallor. No lid lag or facial droop. CARDIOVASCULAR: Regular rate and rhythm. No obvious murmurs to auscultation. No chest tenderness to palpation. RESPIRATORY: +wheezing bilaterally, coarse breath sounds bilaterally. No crackles. GASTROINTESTINAL: Abdomen soft, non-tender, nondistended. BS normal. MUSCULOSKELETAL: Extremities without clubbing, cyanosis, or edema. No obvious deformities. NEUROLOGICAL: Awake, alert and oriented x4. No focal neurologic deficits. Moving both upper and lower extremities spontaneously. Laboratory Laboratory Tests Test 06/26/17 14:45 White Blood Count 8.3 Red Blood Count 5.10 Hemoglobin 14.7 Hematocrit 44.0 Mean Corpuscular Volume 86.1 Mean Corpuscular Hemoglobin 28.9 Mean Corpuscular Hemoglobin Concent 33.5 Red Cell Distribution Width 13.2 Platelet Count 280 Mean Platelet Volume 7.9 Neutrophils (%) (Auto) 58.3 Lymphocytes (%) (Auto) 21.6 Monocytes (%) (Auto) 7.4 Eosinophils (%) (Auto) 11.9 Basophils (%) (Auto) 0.8 Neutrophils # (Auto) 4.9 Lymphocytes # (Auto) 1.8 Monocytes # (Auto) 0.6 Eosinophils # (Auto) 1.0 Basophils # (Auto) 0.1 CBC Comment DIFF FINAL Differential Comment Blood Urea Nitrogen 8 Creatinine 1.17 Random Glucose 91 Total Protein 7.8 Albumin 3.9 Calcium Level 8.7 Alkaline Phosphatase 109 Aspartate Amino Transf (AST/SGOT) 28 Alanine Aminotransferase (ALT/SGPT) 34 Total Bilirubin 0.7 Sodium Level 144 Potassium Level 3.4 Chloride Level 108 Carbon Dioxide Level 27.9 Anion Gap 8 Estimat Glomerular Filtration Rate 63 Date/Time Source Procedure Growth Status 06/26/17 16:50 Nasal Washing Influenza Types A,B Antigen (MICHELLE) - Final NEGATIVE FOR FLU A AND B ANTIGEN.... Complete Result Diagram: 06/26/17 14406/26/17 1445 Caprini VTE Risk Assessment Caprini VTE Risk Assessment: No/Low Risk (score <= 1) Caprini Risk Assessment Model Point Value = 1 Point Value = 2 Point Value = 3 Point Value = 5 Age 41-60 Minor surgery BMI > 25 kg/m2 Swollen legs Varicose veins or History of unexplained or recurrent spontaneous Oral contraceptives or hormone replacement Sepsis (< 1 month) Serious lung disease, including pneumonia (< 1 month) Abnormal pulmonary function Acute myocardial infarction Congestive heart failure (< 1 month) History of inflammatory bowel disease Medical patient at bed rest Age 61-74 Arthroscopic surgery Major open surgery (> 45 min) Laparoscopic surgery (> 45 min) Malignancy Confined to bed (> 72 hours) Immobilizing plaster cast Central venous access Age >= 75 History of VTE Family history of VTE Factor V Leiden Prothrombin [id number] Lupus anticoagulant Anticardiolipin antibodies Elevated serum homocysteine Heparin-induced thrombocytopenia Other congenital or acquired thrombophilia Stroke (< 1 month) Elective arthroplasty Hip, pelvis, or leg fracture Acute spinal cord injury (< 1 month) Prophylaxis Regimen Total Risk Factor Score Risk Level Prophylaxis Regimen 0-1 Low Early ambulation 2 Moderate Order ONE of the following: *Sequential Compression Device (SCD) *Heparin 5000 units SQ BID 3-4 Higher Order ONE of the following medications: *Heparin 5000 units SQ TID *Enoxaparin/Lovenox 40 mg SQ daily (WT < 150 kg, CrCl > 30 mL/min) *Enoxaparin/Lovenox 30 mg SQ daily (WT < 150 kg, CrCl > 10-29 mL/min) *Enoxaparin/Lovenox 30 mg SQ BID (WT < 150 kg, CrCl > 30 mL/min) AND/OR *Sequential Compression Device (SCD) 5 or more Highest Order ONE of the following medications: *Heparin 5000 units SQ TID (Preferred with Epidurals) *Enoxaparin/Lovenox 40 mg SQ daily (WT < 150 kg, CrCl > 30 mL/min) *Enoxaparin/Lovenox 30 mg SQ daily (WT < 150 kg, CrCl > 10-29 mL/min) *Enoxaparin/Lovenox 30 mg SQ BID (WT < 150 kg, CrCl > 30 mL/min) AND *Sequential Compression Device (SCD) Assessment and Plan Problem List: (1) COPD (chronic obstructive pulmonary disease) ICD Code: J44.9 - Chronic obstructive pulmonary disease, unspecified (2) Gastroenteritis ICD Code: K52.9 - Noninfective gastroenteritis and colitis, unspecified (3) Hypokalemia ICD Code: E87.6 - Hypokalemia (4) Chronic pain ICD Code: G89.29 - Other chronic pain (5) HTN (hypertension) ICD Code: I10 - Essential (primary) hypertension Status: Chronic Assessment and Plan A/P: 1. COPD: Chronic Respiratory Failure w/ Acute Exacerbation. Moderate-Severe. Persistent wheezing/coarse breath sounds despite DuoNeb/Solu-Medrol. Continue Solu-Medrol, DuoNeb, Symbicort, Mucinex. CXR w/ no acute findings, images reviewed by me, however in light of physical exam and low-grade temp will start on empiric treatment for atypical PNA w/ Levaquin IV. 2. Gastroenteritis: reports abdominal pain/diarrhea x4 days after running out of pain medications, possibly related to withdrawal. CT Abd/Pelvis w/ non- specific nonobstructive bowel gas pattern, possibly ileus or gastroenteritis, images reviewed by me, doubt ileus at this time. IVF for hydration, diet as tolerated. 3. Hypokalemia: K+ 3.4, will replace and recheck in am. 4. Chronic Pain: Reports taking Morphine/Oxycodone at home, ran out of medications 4 days ago, has follow up appointment on w/ Pain Management. 5. HTN: Uncontrolled. BP 160's, likely compounded by pain complaints. Resume home Metoprolol and Norvasc. Monitor BP. 6. DVT Prophylaxis: SCD/Teds. 7. Social work for d/c planning as needed. 8. Labs/records/imaging reviewed by me, case discussed at length w/ ER physician. Rosi Ellington MD Jun 26, 2017 19:10
[2017-06-26] MEDS ORDERED: SODIUM CHLORIDE 0.9% FLUSH 10 ML FLUSH IV FLUSH PRN (19:15)
[2017-06-26] MEDS ORDERED: MORPHINE SULFATE 2 MG/ML INJ IV PUSH PRN (19:15)
[2017-06-26] MEDS ORDERED: SENNOSIDES 8.6 MG TAB PO PRN (19:15)
[2017-06-26] MEDS ORDERED: POTASSIUM CHLORIDE 20 MEQ CONTROLLED RELEASE TAB PO ONE (19:15)
[2017-06-26] MEDS ORDERED: ONDANSETRON HCL 4 MG/2 ML VIAL IVP PRN (19:15)
[2017-06-26] MEDS ORDERED: RESP: ALBUTEROL 2.5 MG/IPRATROPIUM 0.5 MG NEB (PRN) NEB (19:15)
[2017-06-26] MEDS ORDERED: ACETAMINOPHEN 325 MG TAB PO PRN (19:15)
[2017-06-26] MEDS ORDERED: BISACODYL 10 MG SUPP RECTAL PRN (19:15)
[2017-06-26] MEDS ORDERED: MAGNESIUM HYDROXIDE SUSP 30 ML CUP PO PRN (19:15)
[2017-06-26] MEDS ORDERED: LACTULOSE SYRUP 20 GM/30 ML CUP PO PRN (19:15)
[2017-06-26] MEDS: RESP: ALBUTEROL 2.5 MG/IPRATROPIUM 0.5 MG NEB (SCH) NEB (19:20)
[2017-06-26 19:51] LABS: BILIRUBIN, URINE NEG (NEG); BLOOD, URINE NEG (NEG); GLUCOSE,URINE NEG (NEG); KETONE, URINE 10 mg/dL (NEG); MUCUS URINE FEW /lpf (OCC); NITRITE,URINE NEG (NEG); PH, URINE 8.5 (5.0-8.5); SQUAMOUS EPITHELIAL CELL URINE 1 /hpf (0-5); URINE COLOR YELLOW (YELLW/STRAW); URINE LEUKOCYTE ESTERASE NEG (NEG)
[2017-06-26] MEDS: MAGNESIUM SULFATE 1 GM PREMIX 100 ML IV SCH ×2 (20:11→21:15)
[2017-06-26] MEDS: SODIUM CHLOR 0.9% 1000 ML INJ 1,000 ML IV SCH (20:17)
[2017-06-26] MEDS ORDERED: PILL SPLITTER OTHER PRN (21:00)
[2017-06-26] MEDS: SODIUM CHLORIDE 0.9% FLUSH 10 ML FLUSH IV FLUSH SCH (21:16)
[2017-06-26] MEDS: ACETAMINOPHEN/HYDROcodone 325 MG/5 MG TAB PO PRN (21:17)
[2017-06-26] MEDS: guaiFENesin E.R. 600 MG TAB PO SCH (21:17)
[2017-06-26] MEDS: DOCUSATE SODIUM 50 MG/SENNA 8.6 MG TAB PO SCH (21:18)
[2017-06-26] MEDS: METOPROLOL TARTRATE 25 MG TAB PO SCH (21:18)
[2017-06-26] MEDS: methylPREDNISolone SOD SUCC 40 MG/1 ML VIAL IV PUSH SCH (22:21)
[2017-06-26] MEDS: LEVOFLOXACIN 750 MG PREMIX INJ 150 ML IV SCH (22:22)
[2017-06-26] MEDS: BUDESONIDE-FORMOTEROL 160/4.5 MCG INHALER INH SCH (23:39)
[2017-06-27] VITALS (9 sets, daily range): BP systolic 140–158; BP diastolic 66–99; PULSE 70–86; RESP 18–20; TEMP 96.5–98.9; O2SAT 94–98
[2017-06-27] MEDS: LEVOTHYROXINE SODIUM 150 MCG TAB PO SCH (05:02)
[2017-06-27] MEDS: SODIUM CHLOR 0.9% 1000 ML INJ 1,000 ML IV SCH ×2 (05:02→17:59)
[2017-06-27] MEDS: methylPREDNISolone SOD SUCC 40 MG/1 ML VIAL IV PUSH SCH ×3 (05:03→18:02)
[2017-06-27] MEDS: RESP: ALBUTEROL 2.5 MG/IPRATROPIUM 0.5 MG NEB (SCH) NEB ×4 (08:13→19:58)
[2017-06-27 10:17] LABS: AUTOMATED NEUTROPHIL # 10.7 TH/MM3 (1.8-7.7); BASOPHIL % 0.1 % (0.0-2.0); HEMATOCRIT 38.8 % (39.0-51.0); HEMOGLOBIN 13.3 GM/DL (13.0-17.0); LYMPH % 5.7 % (9.0-44.0); LYMPHOCYTE # 0.7 TH/MM3 (1.0-4.8); MEAN CELL VOLUME 85.5 FL (80.0-100.0); MEAN CORPUSCULAR HEMOGLOBIN 29.3 PG (27.0-34.0); MEAN CORPUSCULAR HGB CONC 34.3 % (32.0-36.0); MEAN PLATELET VOLUME 8.3 FL (7.0-11.0); MONO % 2.2 % (0.0-8.0); MONOCYTE # 0.3 TH/MM3 (0-0.9); PLATELET COUNT 265 TH/MM3 (150-450); RED BLOOD COUNT 4.54 MIL/MM3 (4.50-5.90); RED CELL DISTRIBUTION WIDTH 13.3 % (11.6-17.2); WHITE BLOOD COUNT 11.6 TH/MM3 (4.0-11.0)
[2017-06-27 10:37] LABS: ALBUMIN 3.6 GM/DL (3.4-5.0); BICARBONATE 20.5 MEQ/L (21.0-32.0); BLOOD UREA NITROGEN 13 MG/DL (7-18); CALCIUM 8.6 MG/DL (8.5-10.1); CHLORIDE 105 MEQ/L (98-107); CREATININE 1.08 MG/DL (0.60-1.30); GLOMERULAR FILTRATION RATE 70 ML/MIN (>89); GLUCOSE,RANDOM 137 MG/DL (74-106); SODIUM (NA) 137 MEQ/L (136-145)
[2017-06-27 10:39] LABS: ALT (GPT) 32 U/L (12-78); AST (GOT) 20 U/L (15-37)
[2017-06-27 10:41] LABS: ALKALINE PHOSPHATASE 99 U/L (45-117); TOTAL BILIRUBIN ADULT 0.4 MG/DL (0.2-1.0); TOTAL PROTEIN 7.4 GM/DL (6.4-8.2)
[2017-06-27] MEDS: ACETAMINOPHEN/HYDROcodone 325 MG/5 MG TAB PO PRN (11:57)
[2017-06-27] MEDS: guaiFENesin E.R. 600 MG TAB PO SCH ×2 (11:57→21:40)
[2017-06-27] MEDS: amLODIPine BESYLATE 5 MG TAB PO SCH (11:58)
[2017-06-27] MEDS: DOCUSATE SODIUM 50 MG/SENNA 8.6 MG TAB PO SCH ×2 (11:58→21:00)
[2017-06-27] MEDS: METOPROLOL TARTRATE 25 MG TAB PO SCH ×2 (12:00→21:40)
[2017-06-27] MEDS: BUDESONIDE-FORMOTEROL 160/4.5 MCG INHALER INH SCH ×2 (12:00→21:39)
[2017-06-27] MEDS: SODIUM CHLORIDE 0.9% FLUSH 10 ML FLUSH IV FLUSH SCH ×2 (12:00→21:39)
--- NOTE | 2017-06-27 14:05 | HHI.PR ---
Subjective Remarks With sob and some wheezing however feels some improvement since yesterday. Some nausea but able to eat. No v/d/c. no chest pain. Some nonproductive cough. no fever or chills. Objective Vitals Vital Signs Date Time Temp Pulse Resp B/P (MAP) Pulse Ox O2 Delivery O2 Flow Rate FiO2 06/27/17 12:31 98.2 80 18 158/99 (118) 96 06/27/17 08:56 98.9 70 148/80 (102) 96 06/27/17 08:13 96 21 06/27/17 04:20 97.3 78 18 157/97 (117) 96 06/27/17 00:00 96.5 86 18 140/91 (107) 98 06/26/17 20:37 06/26/17 20:18 89 16 154/94 (114) 96 Nasal Cannula 2.00 06/26/17 19:21 98 Nasal Cannula 2.00 06/26/17 18:45 93 16 165/106 (125) 97 Nasal Cannula 2.00 06/26/17 18:45 24 06/26/17 16:12 24 06/26/17 16:11 93 24 159/95 (116) 95 Room Air 06/26/17 15:00 90 26 144/96 (112) 95 Room Air 06/26/17 14:27 18 06/26/17 14:27 95 Nasal Cannula 2.00 06/26/17 14:27 95 Room Air 06/26/17 14:24 99.4 90 17 163/103 (123) 94 06/26/17 14:13 98.8 85 163/103 (123) I/O 06/26/17 06/26/17 06/26/17 06/27/17 06/27/17 06/27/17 07:00 15:00 23:00 07:00 15:00 23:00 Intake Total 1360 ml 240 ml Output Total 300 ml 200 ml Balance 1060 ml 40 ml Intake Oral 360 ml 240 ml IV Total 1000 ml Output Urine Total 300 ml 200 ml # Voids 1 Result Diagram: 06/27/17 0901 06/27/17 0901 Imaging Last Impressions Chest X-Ray 06/26/17 1348 Signed Impressions: Service Date/Time: Monday, June 26, 2017 14:29 - CONCLUSION: No acute disease. Wilfredo Dobson MD Abdomen/Pelvis CT 06/26/17 0000 Signed Impressions: Service Date/Time: Monday, June 26, 2017 16:58 - CONCLUSION: 1. Nonspecific, nonobstructive bowel gas pattern which may represent a mild ileus and or gastroenteritis. The third portion the duodenum is dilated with air- fluid level. 2. The inferior portion of the known thoracic dissection is visualized. Wilfredo Dobson MD Objective Remarks GENERAL: Pleasant middle-aged white male in no acute distress. HEENT: PERRLA, EOMI. No scleral icterus or conjunctival pallor. No lid lag or facial droop. CARDIOVASCULAR: Regular rate and rhythm. No obvious murmurs to auscultation. No chest tenderness to palpation. RESPIRATORY: Scattered wheezing bilaterally, coarse breath sounds bilaterally. No crackles. GASTROINTESTINAL: Abdomen soft, non-tender, nondistended. BS normal. MUSCULOSKELETAL: Extremities without clubbing, cyanosis, or edema. No obvious deformities. NEUROLOGICAL: Awake, alert and oriented x4. No focal neurologic deficits. Moving both upper and lower extremities spontaneously. A/P Problem List: (1) COPD (chronic obstructive pulmonary disease) ICD Code: J44.9 - Chronic obstructive pulmonary disease, unspecified (2) Gastroenteritis ICD Code: K52.9 - Noninfective gastroenteritis and colitis, unspecified (3) Hypokalemia ICD Code: E87.6 - Hypokalemia (4) Chronic pain ICD Code: G89.29 - Other chronic pain (5) HTN (hypertension) ICD Code: I10 - Essential (primary) hypertension Status: Chronic Assessment and Plan COPD: Chronic Respiratory Failure w/ Acute Exacerbation. Moderate-Severe. Persistent wheezing/coarse breath sounds despite DuoNeb/Solu-Medrol. Continue Solu-Medrol, DuoNeb, Symbicort, Mucinex. CXR w/ no acute findings, images reviewed by me, however in light of physical exam and low-grade temp will start on empiric treatment for atypical PNA w/ Levaquin IV. Gastroenteritis: reports abdominal pain/diarrhea x4 days after running out of pain medications, possibly related to withdrawal. CT Abd/Pelvis w/ non- specific nonobstructive bowel gas pattern, possibly ileus or gastroenteritis, images reviewed by me, doubt ileus at this time. IVF for hydration, diet as tolerated. Hypokalemia: K+ 3.4, on admission replaced. Continue to monitor and replace as need. Chronic Pain: Reports taking Morphine/Oxycodone at home, ran out of medications 4 days ago, has follow up appointment on / Pain Management. HTN: Uncontrolled. BP 160's, likely compounded by pain complaints. Resume home Metoprolol and Norvasc. Monitor BP. DVT Prophylaxis: SCD/Teds. Social work for d/c planning as needed. Discussed with the patient, nurse Karin Villalpando MD Jun 27, 2017 14:05
[2017-06-27] MEDS: TEMAZEPAM 15 MG CAP PO PRN (21:39)
[2017-06-27] MEDS: LEVOFLOXACIN 750 MG PREMIX INJ 150 ML IV SCH (21:41)
[2017-06-28] VITALS (7 sets, daily range): BP systolic 145–161; BP diastolic 81–95; PULSE 65–81; RESP 16–18; TEMP 98–98.4; O2SAT 95–98
[2017-06-28] MEDS: methylPREDNISolone SOD SUCC 40 MG/1 ML VIAL IV PUSH SCH ×4 (00:09→18:05)
[2017-06-28] MEDS: SODIUM CHLOR 0.9% 1000 ML INJ 1,000 ML IV SCH ×2 (01:04→13:08)
[2017-06-28] MEDS: ACETAMINOPHEN/HYDROcodone 325 MG/5 MG TAB PO PRN ×2 (03:12→14:12)
[2017-06-28] MEDS: LEVOTHYROXINE SODIUM 150 MCG TAB PO SCH (06:01)
[2017-06-28] MEDS: RESP: ALBUTEROL 2.5 MG/IPRATROPIUM 0.5 MG NEB (SCH) NEB ×4 (07:40→19:22)
--- NOTE | 2017-06-28 08:09 | EKG ---
Date Performed: 06/26/2017 Time Performed: 14:10:28 PTAGE: 61 years EKG: Sinus rhythm Atrial premature complex with aberrant conduction Right bundle branch block Since PREVIOUS TRACING , no significant change noted PREVIOUS TRACIN03/27/2017 01.29 DOCTOR: Jose Luis Alva Interpretating Date/Time 06/28/2017 08:07:47
--- NOTE | 2017-06-28 08:11 | EKG ---
Date Performed: 06/26/2017 Time Performed: 18:24:49 PTAGE: 61 years EKG: Sinus rhythm Left atrial abnormality Right bundle branch block with secondary ST-T wave changes Since PREVIOUS TRACING , no significant change noted PREVIOUS TRACIN06/26/2017 14.10 DOCTOR: Jose Luis Alva Interpretating Date/Time 06/28/2017 08:10:00
[2017-06-28 08:22] LABS: BASOPHIL # 0.1 TH/MM3 (0-0.2); BASOPHIL % 0.6 % (0.0-2.0); EOSINOPHIL % 0.1 % (0.0-4.0); HEMATOCRIT 38.6 % (39.0-51.0); LYMPH % 3.7 % (9.0-44.0); LYMPHOCYTE # 0.7 TH/MM3 (1.0-4.8); MEAN CELL VOLUME 86.8 FL (80.0-100.0); MEAN CORPUSCULAR HEMOGLOBIN 29.3 PG (27.0-34.0); MEAN CORPUSCULAR HGB CONC 33.8 % (32.0-36.0); MEAN PLATELET VOLUME 8.7 FL (7.0-11.0); MONO % 2.4 % (0.0-8.0); MONOCYTE # 0.4 TH/MM3 (0-0.9); NEUT % 93.2 % (16.0-70.0); PLATELET COUNT 268 TH/MM3 (150-450); RED BLOOD COUNT 4.45 MIL/MM3 (4.50-5.90); RED CELL DISTRIBUTION WIDTH 13.5 % (11.6-17.2); WHITE BLOOD COUNT 18.3 TH/MM3 (4.0-11.0)
[2017-06-28] MEDS ORDERED: LOPERAMIDE HCL 2 MG CAP PO PRN (08:30)
[2017-06-28 08:41] LABS: BICARBONATE 19.7 MEQ/L (21.0-32.0); CALCIUM 8.5 MG/DL (8.5-10.1); CREATININE 0.91 MG/DL (0.60-1.30)
[2017-06-28] MEDS ORDERED: CIPROFLOXACIN 500 MG TAB PO SCH (09:30)
[2017-06-28] MEDS: BUDESONIDE-FORMOTEROL 160/4.5 MCG INHALER INH SCH ×2 (10:03→20:57)
[2017-06-28] MEDS: guaiFENesin E.R. 600 MG TAB PO SCH ×2 (10:04→20:55)
[2017-06-28] MEDS: amLODIPine BESYLATE 5 MG TAB PO SCH (10:04)
[2017-06-28] MEDS: metroNIDAZOLE 500 MG TAB PO SCH ×3 (10:04→20:55)
[2017-06-28] MEDS: SODIUM CHLORIDE 0.9% FLUSH 10 ML FLUSH IV FLUSH SCH ×2 (10:04→20:56)
[2017-06-28] MEDS: METOPROLOL TARTRATE 25 MG TAB PO SCH ×2 (10:04→20:56)
[2017-06-28] MEDS: DOCUSATE SODIUM 50 MG/SENNA 8.6 MG TAB PO SCH ×2 (10:04→20:56)
--- NOTE | 2017-06-28 11:32 | HHI.PR ---
Subjective Remarks Was able to eat last night , no n/v/d/c. Deneis fevers or chills. However he is having profuse vomiting in the morning after eating breakfast. Some abdominal cramps. Feels nauseated. Did not have a BM says since he went for imaging. No cp, sob, palpitations. Objective Vitals Vital Signs Date Time Temp Pulse Resp B/P (MAP) Pulse Ox O2 Delivery O2 Flow Rate FiO2 06/28/17 07:42 96 Nasal Cannula 2.00 06/28/17 07:02 98.2 71 18 161/92 (115) 98 06/28/17 03:48 98.4 78 18 145/90 (108) 95 06/27/17 23:40 98.4 78 18 155/93 (113) 94 06/27/17 20:01 98.4 81 18 152/77 (102) 96 06/27/17 20:00 98 Nasal Cannula 2.00 06/27/17 17:22 98.9 72 20 140/66 (90) 98 06/27/17 12:57 20 06/27/17 12:31 98.2 80 18 158/99 (118) 96 I/O 06/27/17 06/27/17 06/27/17 06/28/17 06/28/17 06/28/17 07:00 15:00 23:00 07:00 15:00 23:00 Intake Total 240 ml 80 ml Output Total 200 ml 650 ml 500 ml Balance 40 ml 80 ml -650 ml -500 ml Intake Oral 240 ml 80 ml Output Urine Total 200 ml 650 ml 500 ml # Voids 3 2 Result Diagram: 06/28/17 0640 06/28/17 0640 Imaging Last Impressions Chest X-Ray 06/26/17 1348 Signed Impressions: Service Date/Time: Monday, June 26, 2017 14:29 - CONCLUSION: No acute disease. Wilfredo Dobson MD Abdomen/Pelvis CT 06/26/17 0000 Signed Impressions: Service Date/Time: Monday, June 26, 2017 16:58 - CONCLUSION: 1. Nonspecific, nonobstructive bowel gas pattern which may represent a mild ileus and or gastroenteritis. The third portion the duodenum is dilated with air- fluid level. 2. The inferior portion of the known thoracic dissection is visualized. Wilfredo Dobson MD Objective Remarks GENERAL: Pleasant middle-aged white male in no acute distress. HEENT: PERRLA, EOMI. No scleral icterus or conjunctival pallor. No lid lag or facial droop. CARDIOVASCULAR: Regular rate and rhythm. No obvious murmurs to auscultation. No chest tenderness to palpation. RESPIRATORY: Scattered wheezing bilaterally, coarse breath sounds bilaterally. No crackles. GASTROINTESTINAL: Abdomen soft, non-tender, nondistended. BS normal. MUSCULOSKELETAL: Extremities without clubbing, cyanosis, or edema. No obvious deformities. NEUROLOGICAL: Awake, alert and oriented x4. No focal neurologic deficits. Moving both upper and lower extremities spontaneously. A/P Problem List: (1) COPD (chronic obstructive pulmonary disease) ICD Code: J44.9 - Chronic obstructive pulmonary disease, unspecified (2) Gastroenteritis ICD Code: K52.9 - Noninfective gastroenteritis and colitis, unspecified (3) Hypokalemia ICD Code: E87.6 - Hypokalemia (4) Chronic pain ICD Code: G89.29 - Other chronic pain (5) HTN (hypertension) ICD Code: I10 - Essential (primary) hypertension Status: Chronic Assessment and Plan COPD: Chronic Respiratory Failure w/ Acute Exacerbation. Moderate-Severe, improving. Persistent wheezing/coarse breath sounds despite DuoNeb/Solu- Medrol. Continue Solu-Medrol, DuoNeb, Symbicort, Mucinex. CXR w/ no acute findings, images reviewed by me, however in light of physical exam and low- grade temp will start on empiric treatment for atypical PNA w/ Levaquin IV. Gastroenteritis/ Ileus: Worsening leukocytosis but no signs of systemic infection reports abdominal pain/diarrhea x4 days after running out of pain medications, possibly related to withdrawal. CT Abd/Pelvis w/ non-specific nonobstructive bowel gas pattern, possibly ileus or gastroenteritis, images reviewed by me. Patient with more symptoms poss ileus. . IVF for hydration, keep NPO. Add stool studies. Consult GI as patient with peristent vomiting and not samreen to keep down any food. Start antibiotic . Hypokalemia: K+ 3.4, on admission replaced. Continue to monitor and replace as need. Might need supplement by IV Chronic Pain: Reports taking Morphine/Oxycodone at home, ran out of medications 4 days ago, has follow up appointment on Tues w/ Pain Management. HTN: Uncontrolled. BP 160's, likely compounded by pain complaints. Resume home Metoprolol and Norvasc. Monitor BP. DVT Prophylaxis: SCD/Teds. Social work for d/c planning as needed. Discussed with the patient, nurse DC plan: not imprpved, consult GI , NPO for now Karin Villalpando MD Jun 28, 2017 11:32
--- NOTE | 2017-06-28 12:08 | RADRPT ---
EXAM DATE/TIME: 06/28/2017 11:25 [facility] COMPARISON: No previous studies available for comparison. INDICATIONS : Syncope. MEDICAL HISTORY : Hypercholesterolemia. Aneurysm, abdominal. Carcinoma, thyroid. Thyroid disease. Coronary artery disea se. HTN. COPD. Ulcer. MRSA. Substance SURGICAL HISTORY : Tonsillectomy. Abdominal aortic aneurysm repair. Thyroidectomy. Cardiac valve replacements. CABG. Lef t BKA. Lymph node resection. Radiation therapy. ENCOUNTER: Initial ACUITY: 1 day PAIN SCORE: 4/10 LOCATION: Bilateral neck PEAK SYSTOLIC VELOCITIES (cm/sec): ICA/CCA RATIO: Right: 1.4 Left: 0.8 ICA: Right: 52 Left: 47 CCA: Right: 38 Left: 59 ECA: Right: 67 Left: 64 VERTEBRAL: Right: 21 antegrade Left: 34 antegrade Elevated flow velocities and ICA/CCA ratios have been found to correlate with increased degrees of vessel stenosis, calculated as percentage of diameter relative to a normal segment of distal ICA/CCA FINDINGS: RIGHT CAROTID: No significant stenosis is visualized. The waveforms are within normal limits. LEFT CAROTID: No significant stenosis is visualized. The waveforms are within normal limits. VERTEBRAL ARTERIES: Antegrade flow is seen in both vertebral arteries. MISCELLANEOUS: None. CONCLUSION: Normal examination. Murphy Cardenas MD on June 28, 2017 at 12:04 Board Certified Radiologist. This report was verified electronically.
--- NOTE | 2017-06-28 13:34 | PD.CONS ---
HPI History of Present Illness This is a 61 year old male with chronic pain, COPD CAD, known thoracic dissection, hx IVDU who presented with SOB, abd pain, diarrhea. 3 days ago he began having lower abd constant pain and loose watery stool "a whole bunch of times." The diarrhea has since resolved. He still has some lower abd pain and bloating sensation. He is passing gas. This morning he had an episode of nausea and vomiting after eating his eggs, he denies prior n/v. Denies fevers, recent abx use, recent travel, chagne in diet, black tarry stool, blood in stool or vomit. He does admit running out of his opioids 3-4 days ago, says he was due to f/u for prescription renewal today. CT w/o contrast showed non specific non obstructive bowel gas pattern may represent mild ileus and/or gastroenteritis. Never had EGD or colonoscopy. (Brenda Garcia) PFSH Past Medical History PMH: HTN, Hyperlipidemia, CAD, COPD, Hepatitis C, h/o IVDU and Chronic Pain Past Surgical History PAST SURGICAL HISTORY: AAA Repair, Thyroidectomy, Tonsillectomy, Lymph Node Resection, Aortic Valve Replacement (Brenda Garcia) Coded Allergies: No Known Allergies (Verified Adverse Reaction, Unknown, 06/26/17) Family History PAST FAMILY HISTORY: Reviewed. No h/o DM or CAD Social History PAST SOCIAL HISTORY: Occasional alcohol. History of tobacco and IVDA. (Brenda Garcia) Review of Systems Constitutional: DENIES: Fever Endocrine: DENIES: Polydipsia Eyes: DENIES: Blurred vision Ears, nose, mouth, throat: DENIES: Hearing loss Respiratory: COMPLAINS OF: Shortness of breath Cardiovascular: DENIES: Chest pain Gastrointestinal: COMPLAINS OF: Abdominal pain, Nausea, Vomiting, DENIES: Black stools, Bloody stools, Constipation, Diarrhea, Hematemesis Genitourinary: DENIES: Hematuria Musculoskeletal: DENIES: Joint Swelling Integumentary: DENIES: Pruritus Hematologic/lymphatic: DENIES: Bruising Immunologic/allergic: DENIES: Eczema Neurologic: DENIES: Abnormal gait Psychiatric: DENIES: Confusion (Brenda Garcia) GI Exam Vitals I&O Vital Signs Date Time Temp Pulse Resp B/P (MAP) Pulse Ox O2 Delivery O2 Flow Rate FiO2 06/28/17 07:42 96 Nasal Cannula 2.00 06/28/17 07:02 98.2 71 18 161/92 (115) 98 06/28/17 03:48 98.4 78 18 145/90 (108) 95 06/27/17 23:40 98.4 78 18 155/93 (113) 94 06/27/17 20:01 98.4 81 18 152/77 (102) 96 06/27/17 20:00 98 Nasal Cannula 2.00 06/27/17 17:22 98.9 72 20 140/66 (90) 98 I/O 06/27/17 06/27/17 06/27/17 06/28/17 06/28/17 06/28/17 07:00 15:00 23:00 07:00 15:00 23:00 Intake Total 240 ml 80 ml 1000 ml Output Total 200 ml 650 ml 900 ml Balance 40 ml 80 ml -650 ml 100 ml Intake Oral 240 ml 80 ml IV Total 1000 ml Output Urine Total 200 ml 650 ml 900 ml # Voids 3 2 Imaging Last Impressions Carotid Artery Ultrasound 06/28/17 0000 Signed Impressions: Service Date/Time: Wednesday, June 28, 2017 11:25 - CONCLUSION: Normal examination. Murphy Cardenas MD Chest X-Ray 06/26/17 1348 Signed Impressions: Service Date/Time: Monday, June 26, 2017 14:29 - CONCLUSION: No acute disease. Wilfredo Dobson MD Abdomen/Pelvis CT 06/26/17 0000 Signed Impressions: Service Date/Time: Monday, June 26, 2017 16:58 - CONCLUSION: 1. Nonspecific, nonobstructive bowel gas pattern which may represent a mild ileus and or gastroenteritis. The third portion the duodenum is dilated with air- fluid level. 2. The inferior portion of the known thoracic dissection is visualized. Wilfredo Dobson MD Laboratory Test 06/28/17 06:40 White Blood Count 18.3 TH/MM3 Red Blood Count 4.45 MIL/MM3 Hemoglobin 13.0 GM/DL Hematocrit 38.6 % Mean Corpuscular Volume 86.8 FL Mean Corpuscular Hemoglobin 29.3 PG Mean Corpuscular Hemoglobin Concent 33.8 % Red Cell Distribution Width 13.5 % Platelet Count 268 TH/MM3 Mean Platelet Volume 8.7 FL Neutrophils (%) (Auto) 93.2 % Lymphocytes (%) (Auto) 3.7 % Monocytes (%) (Auto) 2.4 % Eosinophils (%) (Auto) 0.1 % Basophils (%) (Auto) 0.6 % Neutrophils # (Auto) 17.0 TH/MM3 Lymphocytes # (Auto) 0.7 TH/MM3 Monocytes # (Auto) 0.4 TH/MM3 Eosinophils # (Auto) 0.0 TH/MM3 Basophils # (Auto) 0.1 TH/MM3 CBC Comment DIFF FINAL Differential Comment Blood Urea Nitrogen 15 MG/DL Creatinine 0.91 MG/DL Random Glucose 127 MG/DL Calcium Level 8.5 MG/DL Sodium Level 138 MEQ/L Potassium Level 4.2 MEQ/L Chloride Level 108 MEQ/L Carbon Dioxide Level 19.7 MEQ/L Anion Gap 10 MEQ/L Estimat Glomerular Filtration Rate 85 ML/MIN Date/Time Source Procedure Growth Status 06/26/17 16:50 Nasal Washing Influenza Types A,B Antigen (MICHELLE) - Final NEGATIVE FOR FLU A AND B ANTIGEN.... Complete Physical Examination HEENT: PERRL; normocephalic; atraumatic; no jaundice. CHEST: wheezes CARDIAC: RRR ABDOMEN: Soft, mildly distended, nontender; no hepatosplenomegaly; bowel sounds are present in all four quadrants. EXTREMITIES: No clubbing, cyanosis, left AKA SKIN: Normal; no rash; no jaundice. 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 (Brenda Garcia [facility]) Assessment and Plan Plan ASSESSMENT - abd pain, n/v, diarrhea - diarrhea has improved. pain seems to have improved , pt c/o abd pain but is nontender on exam. had n/v this morning after breakfast and feels better now, is asking for food. CT showed mult loops nondilated sm bowel mult small air fluid levels, dilatation third portion duodenum up to 4.6cm w/ air fluid level, stomach decompressed. gastroenteritis vs ileus vs withdrawal. never had EGD or colonoscopy. stool enteric pathogens pending on flagyl and levaquin - leukocytosis - WBC was WNL on admission now up to 18.3 PLAN - await stool studies, c diff - consider EGD/colonoscopy if stool studies negative - clear liquids - NPO if further vomiting - continue abx - monitor labs - further recs to follow pt seen by myself and Dr Rodriguez and this note is written on his behalf (Brenda Garcia) Physician Comments Patient seen and examined Agree with above Continue with current supportive care Monitor labs (Thad Rodriguez MD) Brenda Garcia Jun 28, 2017 13:34 Thad Rodriguez MD Jun 30, 2017 01:28
[2017-06-28] MEDS: LEVOFLOXACIN 750 MG PREMIX INJ 150 ML IV SCH (20:57)
[2017-06-28] MEDS: MORPHINE SULFATE 60 MG CONTROLLED RELEASE TAB PO SCH (21:38)
[2017-06-28] MEDS: TEMAZEPAM 15 MG CAP PO PRN (21:44)
[2017-06-29] MEDS ORDERED: oxyCODONE HCL 10 MG CONTROLLED RELEASE TAB PO SCH
[2017-06-29] MEDS: methylPREDNISolone SOD SUCC 40 MG/1 ML VIAL IV PUSH SCH ×2 (00:34→06:44)
[2017-06-29] MEDS: SODIUM CHLOR 0.9% 1000 ML INJ 1,000 ML IV SCH ×2 (00:34→08:49)
[2017-06-29] MEDS: metroNIDAZOLE 500 MG TAB PO SCH ×2 (02:45→08:46)
[2017-06-29] MEDS: LEVOTHYROXINE SODIUM 150 MCG TAB PO SCH (06:44)
[2017-06-29 06:55] LABS: AUTOMATED NEUTROPHIL # 14.7 TH/MM3 (1.8-7.7); BASOPHIL % 0.2 % (0.0-2.0); HEMOGLOBIN 13.7 GM/DL (13.0-17.0); LYMPH % 3.9 % (9.0-44.0); LYMPHOCYTE # 0.6 TH/MM3 (1.0-4.8); MEAN CORPUSCULAR HEMOGLOBIN 29.1 PG (27.0-34.0); MEAN CORPUSCULAR HGB CONC 33.5 % (32.0-36.0); MEAN PLATELET VOLUME 7.4 FL (7.0-11.0); MONO % 2.7 % (0.0-8.0); MONOCYTE # 0.4 TH/MM3 (0-0.9); NEUT % 93.2 % (16.0-70.0); PLATELET COUNT 262 TH/MM3 (150-450); RED BLOOD COUNT 4.71 MIL/MM3 (4.50-5.90); RED CELL DISTRIBUTION WIDTH 13.8 % (11.6-17.2); WHITE BLOOD COUNT 15.8 TH/MM3 (4.0-11.0)
[2017-06-29 07:16] LABS: ALBUMIN 3.5 GM/DL (3.4-5.0); ALT (GPT) 33 U/L (12-78); AST (GOT) 17 U/L (15-37); BICARBONATE 21.7 MEQ/L (21.0-32.0); BLOOD UREA NITROGEN 14 MG/DL (7-18); CALCIUM 8.4 MG/DL (8.5-10.1); CHLORIDE 106 MEQ/L (98-107); CREATININE 0.95 MG/DL (0.60-1.30); GLOMERULAR FILTRATION RATE 81 ML/MIN (>89); GLUCOSE,RANDOM 136 MG/DL (74-106); SODIUM (NA) 137 MEQ/L (136-145)
[2017-06-29 07:18] LABS: ALKALINE PHOSPHATASE 87 U/L (45-117); TOTAL BILIRUBIN ADULT 0.4 MG/DL (0.2-1.0); TOTAL PROTEIN 7.4 GM/DL (6.4-8.2)
[2017-06-29 07:30] VITALS: BP 153/102; PULSE 73; RESP 18; TEMP 98.1; O2SAT 96
[2017-06-29] MEDS: RESP: ALBUTEROL 2.5 MG/IPRATROPIUM 0.5 MG NEB (SCH) NEB (07:39)
[2017-06-29 07:43] VITALS: O2SAT 97
[2017-06-29] MEDS: DOCUSATE SODIUM 50 MG/SENNA 8.6 MG TAB PO SCH (08:47)
[2017-06-29] MEDS: MORPHINE SULFATE 60 MG CONTROLLED RELEASE TAB PO SCH (08:47)
[2017-06-29] MEDS: amLODIPine BESYLATE 5 MG TAB PO SCH (08:48)
[2017-06-29] MEDS: METOPROLOL TARTRATE 25 MG TAB PO SCH (08:48)
[2017-06-29] MEDS: guaiFENesin E.R. 600 MG TAB PO SCH (08:48)
[2017-06-29] MEDS: SODIUM CHLORIDE 0.9% FLUSH 10 ML FLUSH IV FLUSH SCH (08:49)
[2017-06-29] MEDS: BUDESONIDE-FORMOTEROL 160/4.5 MCG INHALER INH SCH (08:49)
--- NOTE | 2017-06-29 09:33 | HHI.GIFU ---
Subjective Remarks Resting in the bed Eating 98% of heart healthy diet without nausea or vomiting Lower abdominal cramping resolved Abdomen soft nontender (Ilene Carney) Objective Vitals I&O Vital Signs Date Time Temp Pulse Resp B/P (MAP) Pulse Ox O2 Delivery O2 Flow Rate FiO2 06/29/17 07:43 97 Nasal Cannula 2.00 06/29/17 07:30 98.1 73 18 153/102 (119) 96 06/28/17 19:56 98.0 81 16 146/81 (102) 98 06/28/17 19:23 98 Nasal Cannula 2.00 06/28/17 15:11 98.0 77 18 160/95 (116) 98 06/28/17 14:08 98.2 65 16 146/89 (108) 96 06/28/17 14:08 98.2 65 16 96 I/O 06/28/17 06/28/17 06/28/17 06/29/17 06/29/17 06/29/17 07:00 15:00 23:00 07:00 15:00 23:00 Intake Total 1000 ml Output Total 1400 ml 500 ml Balance -400 ml -500 ml IV Total 1000 ml Output Urine Total 1400 ml 500 ml Laboratory Laboratory Tests Test 06/29/17 06:40 White Blood Count 15.8 Red Blood Count 4.71 Hemoglobin 13.7 Hematocrit 41.0 Mean Corpuscular Volume 87.0 Mean Corpuscular Hemoglobin 29.1 Mean Corpuscular Hemoglobin Concent 33.5 Red Cell Distribution Width 13.8 Platelet Count 262 Mean Platelet Volume 7.4 Neutrophils (%) (Auto) 93.2 Lymphocytes (%) (Auto) 3.9 Monocytes (%) (Auto) 2.7 Eosinophils (%) (Auto) 0.0 Basophils (%) (Auto) 0.2 Neutrophils # (Auto) 14.7 Lymphocytes # (Auto) 0.6 Monocytes # (Auto) 0.4 Eosinophils # (Auto) 0.0 Basophils # (Auto) 0.0 CBC Comment DIFF FINAL Differential Comment Blood Urea Nitrogen 14 Creatinine 0.95 Random Glucose 136 Total Protein 7.4 Albumin 3.5 Calcium Level 8.4 Alkaline Phosphatase 87 Aspartate Amino Transf (AST/SGOT) 17 Alanine Aminotransferase (ALT/SGPT) 33 Total Bilirubin 0.4 Sodium Level 137 Potassium Level 4.1 Chloride Level 106 Carbon Dioxide Level 21.7 Anion Gap 9 Estimat Glomerular Filtration Rate 81 Date/Time Source Procedure Growth Status 06/26/17 16:50 Nasal Washing Influenza Types A,B Antigen (MICHELLE) - Final NEGATIVE FOR FLU A AND B ANTIGEN.... Complete Imaging Last Impressions Carotid Artery Ultrasound 06/28/17 0000 Signed Impressions: Service Date/Time: Wednesday, June 28, 2017 11:25 - CONCLUSION: Normal examination. Murphy Cardenas MD Chest X-Ray 06/26/17 1348 Signed Impressions: Service Date/Time: Monday, June 26, 2017 14:29 - CONCLUSION: No acute disease. Wilfredo Dobson MD Abdomen/Pelvis CT 06/26/17 0000 Signed Impressions: Service Date/Time: Monday, June 26, 2017 16:58 - CONCLUSION: 1. Nonspecific, nonobstructive bowel gas pattern which may represent a mild ileus and or gastroenteritis. The third portion the duodenum is dilated with air- fluid level. 2. The inferior portion of the known thoracic dissection is visualized. Wilfredo Dobson MD Physical Exam HEENT: Pupils round and reactive to light; normocephalic; atraumatic; no jaundice. Oral cavity moist NECK: Neck is supple, no JVD, no lymphadenopathy. CHEST: Chest is clear to auscultation and percussion. CARDIAC: Regular rate and rhythm ABDOMEN: Soft, nondistended, nontender; no hepatosplenomegaly; bowel sounds are present EXTREMITIES: No edema., Left BKA healed SKIN: Normal; no rash; no jaundice. AP PROCESSOR: Speech clear, oriented 2-3 (Ilene Carney) Assessment and Plan Plan ASSESSMENT - abd pain, n/v, diarrhea - diarrhea has resolved and patient is able to tolerate solid food. pain seems to have improved, patient states some mild lower abdominal cramping during a.m. hours but took some pain meds this morning and feels better. Concerned over a outpatient appointment today with pain management, instructed him to talk to his hospitalist and or nurse, patient is hoping for discharge CT initially showed mult loops nondilated sm bowel mult small air fluid levels, dilatation third portion duodenum up to 4.6cm w/ air fluid level, stomach decompressed. gastroenteritis vs ileus vs withdrawal, patient states he ate at [employer] and became sick within the first few hours. never had EGD or colonoscopy. stool enteric pathogens pending on flagyl and levaquin - leukocytosis - WBC was WNL on admission now up to 18.3, now trending down to 15.8 PLAN - await stool studies, c diff , still pending - consider EGD/colonoscopy if stool studies negative, plan EGD/colonoscopy As outpatient if patient is discharged - Tolerating a heart healthy diet without nausea and vomiting - continue abx - monitor labs - further recs to follow, if patient is stable for discharge plan EGD colonoscopy as outpatient pt seen by myself and Dr Rodriguez and this note is written on his behalf (Ilene Carney) Physician Comments Patient seen and examined Agree with above Continue with current supportive care Monitor labs Outpatient endoscopy (Thad Rodriguez MD) Ilene Carney Jun 29, 2017 09:33 Thad Rodriguez MD Jun 30, 2017 01:28
--- NOTE | 2017-06-29 10:21 | HHI.DS ---
Discharge Summary Admission Date Jun 29, 2017 at 09:38 Discharge Date: Jun 29, 2017 Admitting Diagnosis COPD exacerbation (1) COPD (chronic obstructive pulmonary disease) ICD Code: J44.9 - Chronic obstructive pulmonary disease, unspecified (2) Gastroenteritis ICD Code: K52.9 - Noninfective gastroenteritis and colitis, unspecified (3) Hypokalemia ICD Code: E87.6 - Hypokalemia (4) Chronic pain ICD Code: G89.29 - Other chronic pain Status: Resolved (5) HTN (hypertension) ICD Code: I10 - Essential (primary) hypertension Status: Chronic Procedures none Brief History - From Admission This is a 61-year-old male with PMH of HTN, Hyperlipidemia, CAD, COPD, Hepatitis C, h/o IVDU and Chronic Pain who presented to the ER w/ complaints of SOB in addition to abdominal pain and diarrhea. States symptoms started approx 4 days ago after running out of his home Morphine/Oxycodone. Has upcoming appt w/ Pain Management next week. States abdominal pain is cramping, intermittent, 8/10, non-radiating. Associated w/ diarrhea. Denies fever, chills, nausea or vomiting. SOB associated w/ wheezing, worse w/ exertion. used Albuterol at home w/ minimal improvement. On arrival, BP 163/103, HR 90, O2 sat 95% on RA, Temp 99.4. CBC unremarkable. Chemistry essentially unremarkable except for GFR 63. K+ 3.4. UA negative. CXR with no acute findings. CT Abd/Pelvis w/ nonspecific nonobstructive bowel gas pattern possibly ileus or gastroenteritis, thoracic dissection, chronic. S/p Solu-Medrol and DuoNeb in ER w/ some improvement. CBC/BMP: 06/29/17 0640 06/29/17 0640 Significant Findings Laboratory Tests Test 06/26/17 14:45 06/26/17 19:15 06/27/17 09:01 06/28/17 06:40 Eosinophils (%) (Auto) 11.9 % (0.0-4.0) Eosinophils # (Auto) 1.0 TH/MM3 (0-0.4) Potassium Level 3.4 MEQ/L (3.5-5.1) Chloride Level 108 MEQ/L (98-107) 108 MEQ/L (98-107) Estimat Glomerular Filtration Rate 63 ML/MIN (>89) 70 ML/MIN (>89) 85 ML/MIN (>89) Urine Specific [place] 1.050 (1.002-1.035) Urine Protein 30 mg/dL (NEG-TRACE) Urine Ketones 10 mg/dL (NEG) Urine Mucus FEW /lpf (OCC) White Blood Count 11.6 TH/MM3 (4.0-11.0) 18.3 TH/MM3 (4.0-11.0) Hematocrit 38.8 % (39.0-51.0) 38.6 % (39.0-51.0) Neutrophils (%) (Auto) 92.0 % (16.0-70.0) 93.2 % (16.0-70.0) Lymphocytes (%) (Auto) 5.7 % (9.0-44.0) 3.7 % (9.0-44.0) Neutrophils # (Auto) 10.7 TH/MM3 (1.8-7.7) 17.0 TH/MM3 (1.8-7.7) Lymphocytes # (Auto) 0.7 TH/MM3 (1.0-4.8) 0.7 TH/MM3 (1.0-4.8) Random Glucose 137 MG/DL (74-106) 127 MG/DL (74-106) Carbon Dioxide Level 20.5 MEQ/L (21.0-32.0) 19.7 MEQ/L (21.0-32.0) Red Blood Count 4.45 MIL/MM3 (4.50-5.90) Test 06/29/17 06:40 White Blood Count 15.8 TH/MM3 (4.0-11.0) Neutrophils (%) (Auto) 93.2 % (16.0-70.0) Lymphocytes (%) (Auto) 3.9 % (9.0-44.0) Neutrophils # (Auto) 14.7 TH/MM3 (1.8-7.7) Lymphocytes # (Auto) 0.6 TH/MM3 (1.0-4.8) Random Glucose 136 MG/DL (74-106) Calcium Level 8.4 MG/DL (8.5-10.1) Estimat Glomerular Filtration Rate 81 ML/MIN (>89) Imaging Last Impressions Carotid Artery Ultrasound 06/28/17 0000 Signed Impressions: Service Date/Time: Wednesday, June 28, 2017 11:25 - CONCLUSION: Normal examination. Murphy Cardenas MD Chest X-Ray 06/26/17 1348 Signed Impressions: Service Date/Time: Monday, June 26, 2017 14:29 - CONCLUSION: No acute disease. Wilfredo Dobson MD Abdomen/Pelvis CT 06/26/17 0000 Signed Impressions: Service Date/Time: Monday, June 26, 2017 16:58 - CONCLUSION: 1. Nonspecific, nonobstructive bowel gas pattern which may represent a mild ileus and or gastroenteritis. The third portion the duodenum is dilated with air- fluid level. 2. The inferior portion of the known thoracic dissection is visualized. Wilfredo Dobson MD PE at Discharge GENERAL: Pleasant middle-aged white male in no acute distress. HEENT: PERRLA, EOMI. No scleral icterus or conjunctival pallor. No lid lag or facial droop. CARDIOVASCULAR: Regular rate and rhythm. No obvious murmurs to auscultation. No chest tenderness to palpation. RESPIRATORY: Scattered wheezing bilaterally, coarse breath sounds bilaterally. No crackles. GASTROINTESTINAL: Abdomen soft, non-tender, nondistended. BS normal. MUSCULOSKELETAL: Extremities without clubbing, cyanosis, or edema. No obvious deformities. NEUROLOGICAL: Awake, alert and oriented x4. No focal neurologic deficits. Moving both upper and lower extremities spontaneously. Pt update on day of discharge Feels much better able to tolerate food. No more nausea or vomiting. Had a forming BM. No blood in it. No fever or chills overnight. No n/v/d/c. Hospital Course COPD: Chronic Respiratory Failure w/ Acute Exacerbation. Moderate-Severe, improved. Persistent wheezing/coarse breath sounds despite DuoNeb/Solu- Medrol. Continue Solu-Medrol, tapered, DuoNeb, taper, Symbicort, Mucinex. CXR w/ no acute findings, images reviewed. Gastroenteritis/ Ileus: Worsening leukocytosis but no signs of systemic infection reports abdominal pain/diarrhea x4 days after running out of pain medications, possibly related to withdrawal. CT Abd/Pelvis w/ non-specific nonobstructive bowel gas pattern, possibly ileus or gastroenteritis, images reviewed by me. Patient with more symptoms poss ileus. . IVF for hydration, keep NPO. Add stool studies. Consult GI as patient with persistent vomiting and not able to keep down any food. Start antibiotic GI consulted. Patient improved . Discussed with GI can DC patient and to follow up as OP can do EGD as OP. Patient is eating now and tolerates regular food. Hypokalemia: K+ 3.4, on admission replaced. Continue to monitor and replace as need. Might need supplement by IV Note also patient reported recent dizziness and syncopal episode. Carotid US so far are normal. Chronic Pain: Reports taking Morphine/Oxycodone at home, ran out of medications 4 days ago, has follow up appointment on w/ Pain Management. Also patient follows with pain management as OP . Restart morphine SR 60 bid po and also oxycodone 30 sr q6 HTN: Uncontrolled. BP 160's, likely compounded by pain complaints. Resume home Metoprolol and Norvasc. Monitor BP. DVT Prophylaxis: SCD/Teds. Social work for d/c planning as needed. Discussed with the patient, nurse Improved , tolerates food. Cleared by GI can followup as OP for EGD as OP. DC home in stable condition Pt Condition on Discharge: Stable Discharge Disposition: Discharge Home Discharge Time: > 30 minutes Discharge Instructions DIET: Follow Instructions for: Heart Healthy Diet Activities you can perform: Regular-No Restrictions Follow up Referrals: Gastroenterology - 1 Week PCP Follow-up - 2-3 Days New Medications: Ciprofloxacin (Cipro) 500 Mg Tab 500 MG PO Q12HR for INFECTION for 10 Days, #20 TAB Metronidazole (Flagyl) 500 Mg Tab 500 MG PO Q8H for INFECTION for 9 Days, #27 TAB [Budeson-Formot 160-4.5 Mcg Inh] () 60 PUFF AERO 2 PUFF INH Q12HR for COPD, #1 INHALER [guaiFENesin ER] () 600 MG TABCR 1200 MG PO BID for COPD, #10 Continued Medications: Albuterol 18 GM Inh (Ventolin Hfa 18 GM Inh) 90 Mcg/Act Aer 2 PUFF INH Q4H PRN for SHORTNESS OF BREATH, #1 INHALER 0 Refills Amlodipine (Norvasc) 5 Mg Tab 5 MG PO DAILY for Blood Pressure Management, #30 TAB 1 Refill Levothyroxine (Levothyroxine) 150 Mcg Tab 150 MCG PO DAILY for Thyroid, #30 TAB 0 Refills (This prescription has been renewed) Metoprolol Tartrate (Metoprolol Tartrate) 25 Mg Tab 12.5 MG PO Q12HR for Blood Pressure Management, #62 TAB Morphine Sulfate CR (Morphine Sulfate CR) 60 Mg Tab 60 MG PO q12 Oxycodone (Oxycodone) 30 Mg Tab 30 MG PO Q6HR for Pain Management, TAB 0 Refills Discontinued Medications: Albuterol 8.5 GM Inh (Proair Hfa 8.5 GM Inh) 90 Mcg/Act Aer 2 PUFF INH Q4-6H PRN for SHORTNESS OF BREATH, #1 INHALER 0 Refills 108 mcg/actuation Karin Villalpando MD Jun 29, 2017 10:21
[2017-06-29] MEDS ORDERED: guaiFENesin ER PO (10:28)
[2017-06-29] MEDS ORDERED: CIPR-9 PO (10:28)
[2017-06-29] MEDS ORDERED: Budeson-Formot 160-4.5 Mcg Inh INH (10:28)
[2017-06-29] MEDS ORDERED: METR-1 PO (10:28)
[2017-06-29 11:22] VITALS: BP 130/82; PULSE 74; RESP 18; TEMP 97.7; O2SAT 96
[2017-06-29] MEDS ORDERED: LEVO150T7 PO (11:27)
== END 2017-06-29 12:11 | disposition home or self-care (01) | DRG 191 ==
LOC: NEPC 13:31 → NEDA 19:14 → NEPFCDU 20:33 → OBSVTOIN 06-29 09:38
PROVIDERS: ADMIT Hospitalist; ATTEND Hospitalist
DX: J44.1 Chronic obstructive pulmonary disease with (acute) exacerbation (principal); J96.10 Chronic respiratory failure, unspecified whether with hypoxia or hypercapnia; E87.6 Hypokalemia; G89.29 Other chronic pain; Z79.899 Other long term (current) drug therapy; K52.9 Noninfective gastroenteritis and colitis, unspecified; E78.5 Hyperlipidemia, unspecified; I10 Essential (primary) hypertension; I25.10 Atherosclerotic heart disease of native coronary artery without angina pectoris; Z95.2 Presence of prosthetic heart valve; B19.20 Unspecified viral hepatitis C without hepatic coma; Z85.850 Personal history of malignant neoplasm of thyroid; E89.0 Postprocedural hypothyroidism; Z87.891 Personal history of nicotine dependence
CPT/HCPCS: 71045; 74177; 80048; 80053; 81001; 85025; 87804; 93005; 93880; 94640; 94664; J1956; J2270; J2920; J2930; J3475; J7030; J7613; Q9967

== ENCOUNTER 2017-07-30 03:17 | Emergency (ER) | payer MEDICARE ==
[~2017-07-30] VITALS: Ht 177.8 cm; Wt 87.0 kg
[~2017-07-30 03:17] MED LIST changes: -ALBUAER3 INH; -AZIT500T2 PO; +Budeson-Formot 160-4.5 Mcg Inh INH; +CIPR-9 PO; -FLUT50SP EACH NARE; -INSPIREASE DRUG1 EA; -IPRASOL INH; +METR-1 PO; -NEBULIZER1 MI1; -PRED20 PO; -SALM50I INH; +guaiFENesin ER PO
[2017-07-30 03:20] VITALS: BP 181/110; PULSE 75; RESP 16; TEMP 97.5; O2SAT 97
--- NOTE | 2017-07-30 04:24 | PD ---
HPI Chief Complaint: GI Complaint Time Seen by Provider: 03:26 Travel History International Travel<30 days: No Contact w/Intl Traveler<30days: No Traveled to known affect area: No History of Present Illness HPI Patient is a 61-year-old male coming in saying for 1 day he has had excessive vomiting for the last 3 days he has had nausea and not feeling well. But today he began vomiting. He did not take anything for the nausea or the abdomen pain. He denies diarrhea. He has a past medical history of COPD for which he uses an inhaler. His main complaint tonight is the nausea now vomiting excessively recurrent denies hematemesis denies melena denies diarrhea and he denies abdomen pain in the ER. He has not seen another doctor for this PFSH Past Medical History AAA: Yes (REPAIRED) Asthma: No Blood Disorders: No Cancer: Yes (THYROID) Cardiovascular Problems: Yes (HTN ) High Cholesterol: Yes Chemotherapy: No Chest Pain: No Congestive Heart Failure: No COPD: Yes Coronary Artery Disease: Yes Diabetes: No Diminished Hearing: No Endocrine: Yes (HEP C) Genitourinary: No Hepatitis: Yes (HEP-C) Hypertension: Yes Immune Disorder: No Implanted Vascular Access Dvce: Yes Musculoskeletal: Yes Neurologic: No Psychiatric: No Reproductive: No Respiratory: Yes Radiation Therapy: Yes Sleep Apnea: No Thyroid Disease: Yes Ulcer: Yes Tetanus Vaccination: Unknown Past Surgical History Body Medical Devices: aortic valve replacement Coronary Artery Bypass Graft: Yes (AAA REPAIR) Endocrine Surgery: Yes (THYROIDECTOMY/LYMPH NODES) Thoracic Surgery: Yes Tonsillectomy: Yes Other Surgery: Yes (THYROIDECTOMY, lymph node resection, open heart, LT LEG AMPUTATION ) Social History Alcohol Use: Yes (OCCASSIONAL) Tobacco Use: No Substance Use: Yes (PAST IVDA, QUIT YEARS AGO) Allergies-Medications (Allergen,Severity, Reaction): Coded Allergies: No Known Allergies (Verified Adverse Reaction, Unknown, 07/30/17) Reported Meds & Prescriptions Reported Meds & Active Scripts Active Zofran Odt (Ondansetron Odt) 4 Mg Tab 4 Mg SL Q12HR PRN Levothyroxine (Levothyroxine Sodium) 150 Mcg Tab 150 Mcg PO DAILY [guaiFENesin ER] 600 MG Tabcr 1,200 Mg PO BID [Budeson-Formot 160-4.5 Mcg Inh] 60 PUFF Aero 2 Puff INH Q12HR Metoprolol Tartrate 25 Mg Tab 12.5 Mg PO Q12HR Norvasc (Amlodipine Besylate) 5 Mg Tab 5 Mg PO DAILY Ventolin Hfa 18 GM Inh (Albuterol Sulfate) 90 Mcg/Act Aer 2 Puff INH Q4H PRN Reported Oxycodone (Oxycodone HCl) 30 Mg Tab 30 Mg PO Q6HR Morphine Sulfate CR (Morphine Sulfate) 60 Mg Tab 60 Mg PO Q12 Review of Systems Except as stated in HPI: all other systems reviewed are Neg Gastrointestinal: Positive: Nausea, Vomiting Physical Exam Narrative GENERAL: Patient appears to be in no distress slightly unkempt. SKIN: Warm and dry. HEAD: Atraumatic. Normocephalic. EYES: Pupils equal and round. No scleral icterus. No injection or drainage. ENT: No nasal bleeding or discharge. Mucous membranes pink and moist. NECK: Trachea midline. No JVD. CARDIOVASCULAR: Regular rate and rhythm. RESPIRATORY: No accessory muscle use. Clear to auscultation. Breath sounds equal bilaterally. GASTROINTESTINAL: Abdomen soft, non-tender, nondistended. Hepatic and splenic margins not palpable. MUSCULOSKELETAL: Extremities right lower extremity is slightly edematous. Nonpitting pitting . NEUROLOGICAL: Awake and alert. No obvious cranial nerve deficits. Motor grossly within normal limits. Five out of 5 muscle strength in the arms and legs. Normal speech. PSYCHIATRIC: Appropriate mood and affect; insight and judgment normal. Data Data Last Documented VS Vital Signs Date Time Temp Pulse Resp B/P (MAP) Pulse Ox O2 Delivery O2 Flow Rate FiO2 07/30/17 07:30 68 16 155/86 (109) 95 07/30/17 05:45 Room Air 07/30/17 03:20 97.5 Orders Orders Complete Blood Count With Diff (07/30/17 04:18) Comprehensive Metabolic Panel (07/30/17 04:18) Creatine Kinase (Cpk) (07/30/17 04:18) Troponin I (07/30/17 04:18) Lipase (07/30/17 04:18) Ondansetron Inj (Zofran Inj) (07/30/17 04:30) Ketorolac Inj (Toradol Inj) (07/30/17 04:30) CKMB (07/30/17 04:33) CKMB% (07/30/17 04:33) Sodium Chlor 0.9% 1000 Ml Inj (Ns 1000 M (07/30/17 05:45) Ed Discharge Order (07/30/17 06:52) Labs Laboratory Tests Test 07/30/17 04:33 White Blood Count 8.5 TH/MM3 Red Blood Count 4.73 MIL/MM3 Hemoglobin 14.2 GM/DL Hematocrit 40.5 % Mean Corpuscular Volume 85.6 FL Mean Corpuscular Hemoglobin 30.0 PG Mean Corpuscular Hemoglobin Concent 35.1 % Red Cell Distribution Width 14.1 % Platelet Count 300 TH/MM3 Mean Platelet Volume 7.8 FL Neutrophils (%) (Auto) 75.2 % Lymphocytes (%) (Auto) 17.1 % Monocytes (%) (Auto) 4.0 % Eosinophils (%) (Auto) 2.9 % Basophils (%) (Auto) 0.8 % Neutrophils # (Auto) 6.4 TH/MM3 Lymphocytes # (Auto) 1.5 TH/MM3 Monocytes # (Auto) 0.3 TH/MM3 Eosinophils # (Auto) 0.2 TH/MM3 Basophils # (Auto) 0.1 TH/MM3 CBC Comment DIFF FINAL Differential Comment Blood Urea Nitrogen 14 MG/DL Creatinine 1.39 MG/DL Random Glucose 110 MG/DL Total Protein 8.7 GM/DL Albumin 4.5 GM/DL Calcium Level 8.7 MG/DL Alkaline Phosphatase 115 U/L Aspartate Amino Transf (AST/SGOT) 52 U/L Alanine Aminotransferase (ALT/SGPT) 51 U/L Total Bilirubin 0.4 MG/DL Sodium Level 133 MEQ/L Potassium Level 3.5 MEQ/L Chloride Level 97 MEQ/L Carbon Dioxide Level 29.6 MEQ/L Anion Gap 6 MEQ/L Estimat Glomerular Filtration Rate 52 ML/MIN Total Creatine Kinase 352 U/L Creatine Kinase MB 10.1 NG/ML Creatine Kinase MB % 2.9 % Troponin I LESS THAN 0.02 NG/ML Lipase 89 U/L [facility] Medical Decision Making Medical Screen Exam Complete: Yes Emergency Medical Condition: Yes Differential Diagnosis viral GASTROENTERITIS vs food toxin vs travel related illness Narrative Course zofran and pepcid alleviated his symptoms and feels much improved . pt ready for discharge with Rx for zofran and outpt folloe up with his MD Diagnosis Primary Impression: Vomiting Qualified Codes: R11.10 - Vomiting, unspecified Patient Instructions: Acute Nausea and Vomiting (ED), General Instructions Scripts Ondansetron Odt (Zofran Odt) 4 Mg Tab 4 MG SL Q12HR Y for Nausea/Vomiting, #12 TAB 0 Refills Prov: Lauro Millan MD 07/30/17 Disposition: 01 DISCHARGE HOME Lauro Millan MD Jul 30, 2017 04:24
[2017-07-30] MEDS ORDERED: KETOROLAC TROMETHAMINE 30 MG/ML (IVP) VIAL IV PUSH ONE (04:30)
[2017-07-30] MEDS ORDERED: ONDANSETRON HCL 4 MG/2 ML VIAL IV PUSH ONE (04:30)
[2017-07-30 04:46] LABS: AUTOMATED NEUTROPHIL # 6.4 TH/MM3 (1.8-7.7); BASOPHIL # 0.1 TH/MM3 (0-0.2); BASOPHIL % 0.8 % (0.0-2.0); EOSINOPHIL # 0.2 TH/MM3 (0-0.4); EOSINOPHIL % 2.9 % (0.0-4.0); HEMATOCRIT 40.5 % (39.0-51.0); HEMOGLOBIN 14.2 GM/DL (13.0-17.0); LYMPH % 17.1 % (9.0-44.0); LYMPHOCYTE # 1.5 TH/MM3 (1.0-4.8); MEAN CELL VOLUME 85.6 FL (80.0-100.0); MEAN CORPUSCULAR HGB CONC 35.1 % (32.0-36.0); MEAN PLATELET VOLUME 7.8 FL (7.0-11.0); MONOCYTE # 0.3 TH/MM3 (0-0.9); NEUT % 75.2 % (16.0-70.0); PLATELET COUNT 300 TH/MM3 (150-450); RED BLOOD COUNT 4.73 MIL/MM3 (4.50-5.90); RED CELL DISTRIBUTION WIDTH 14.1 % (11.6-17.2); WHITE BLOOD COUNT 8.5 TH/MM3 (4.0-11.0)
[2017-07-30 05:00] LABS: ALBUMIN 4.5 GM/DL (3.4-5.0); ALT (GPT) 51 U/L (12-78); AST (GOT) 52 U/L (15-37); BICARBONATE 29.6 MEQ/L (21.0-32.0); BLOOD UREA NITROGEN 14 MG/DL (7-18); CALCIUM 8.7 MG/DL (8.5-10.1); CHLORIDE 97 MEQ/L (98-107); CREATININE 1.39 MG/DL (0.60-1.30); GLOMERULAR FILTRATION RATE 52 ML/MIN (>89); GLUCOSE,RANDOM 110 MG/DL (74-106); SODIUM (NA) 133 MEQ/L (136-145)
[2017-07-30 05:05] LABS: ALKALINE PHOSPHATASE 115 U/L (45-117); TOTAL BILIRUBIN ADULT 0.4 MG/DL (0.2-1.0); TOTAL PROTEIN 8.7 GM/DL (6.4-8.2); TROPONIN I LESS THAN 0.02 NG/ML (0.02-0.05)
[2017-07-30 05:45] VITALS: BP 160/91; PULSE 60; RESP 18; O2SAT 97
[2017-07-30] MEDS ORDERED: SODIUM CHLOR 0.9% 1000 ML INJ 1,000 ML IV ONE (05:45)
[2017-07-30] MEDS ORDERED: ZOFR4TAB3 SL (06:53)
[2017-07-30 07:30] VITALS: BP 155/86
== END 2017-07-30 07:30 | disposition home or self-care (01) ==
LOC: NEPC 03:17
DX: R11.10 Vomiting, unspecified (principal); I10 Essential (primary) hypertension; E78.00 Pure hypercholesterolemia, unspecified; J44.9 Chronic obstructive pulmonary disease, unspecified; I25.10 Atherosclerotic heart disease of native coronary artery without angina pectoris; B19.20 Unspecified viral hepatitis C without hepatic coma; Z95.2 Presence of prosthetic heart valve; Z85.850 Personal history of malignant neoplasm of thyroid; Z86.79 Personal history of other diseases of the circulatory system; Z95.1 Presence of aortocoronary bypass graft
CPT/HCPCS: 80053; 82550; 82552; 83690; 84484; 85025; 96361; 96374; 96375; 99284; J1885; J2405; J7030